=== PATIENT | female | born 1940 | race Caucasian/White ===

== ENCOUNTER → 2017-02-23 | Outpatient (CLI) | payer MEDICARE, OTHER ==
--- NOTE | 2017-02-24 07:32 | MM ---
Reason for exam: screening (asymptomatic). Last mammogram was performed 1 year and 1 month ago. History: Patient is postmenopausal. Benign excisional biopsy of the left breast, 1993. Taking estrogen for 11 years beginning at age 56. Physical Findings: A clinical breast exam by your physician is recommended on an annual basis and results should be correlated with mammographic findings. MG 3D Screening Mammo W/Cad Bilateral CC and MLO view(s) were taken. Prior study comparison: February 04, 2016, bilateral MG 3d screening mammo w/cad. October 09, 2014, bilateral MG screening mammo w CAD. There are scattered fibroglandular densities. No significant changes when compared with prior studies. ASSESSMENT: Benign, BI-RAD 2 RECOMMENDATION: Routine screening mammogram of both breasts in 1 year.
== END | disposition home or self-care (01) ==
LOC: RADMAMWWP 10:46
PROVIDERS: ATTEND Internal Medicine
DX: Z12.31 Encounter for screening mammogram for malignant neoplasm of breast (principal)
CPT/HCPCS: 77063; G0202

== ENCOUNTER → 2018-03-01 | Outpatient (CLI) | payer MEDICARE, OTHER ==
--- NOTE | 2018-03-02 10:31 | MM ---
Reason for exam: screening (asymptomatic). Last mammogram was performed 1 year ago. History: Patient is postmenopausal. Benign excisional biopsy of the left breast, 1993. Taking estrogen for 11 years beginning at age 56. Physical Findings: A clinical breast exam by your physician is recommended on an annual basis and results should be correlated with mammographic findings. MG 3D Screening Mammo W/Cad Bilateral CC and MLO view(s) were taken. Prior study comparison: February 23, 2017, bilateral MG 3d screening mammo w/cad. February 04, 2016, bilateral MG 3d screening mammo w/cad. The breast tissue is heterogeneously dense. This may lower the sensitivity of mammography. Benign appearing bilateral calcifications. No significant changes when compared with prior studies. ASSESSMENT: Benign, BI-RAD 2 RECOMMENDATION: Routine screening mammogram of both breasts in 1 year.
== END | disposition home or self-care (01) ==
LOC: RADMAMWWP 10:41
PROVIDERS: ATTEND Internal Medicine
DX: Z12.31 Encounter for screening mammogram for malignant neoplasm of breast (principal)
CPT/HCPCS: 77063; 77067

== ENCOUNTER → 2019-06-13 | Outpatient (CLI) | payer MEDICARE, OTHER ==
--- NOTE | 2019-06-14 10:06 | MM ---
Reason for exam: screening (asymptomatic). Last mammogram was performed 1 year and 3 months ago. History: Patient is postmenopausal. Benign excisional biopsy of the left breast, 1993. Taking estrogen for 11 years beginning at age 56. Physical Findings: A clinical breast exam by your physician is recommended on an annual basis and results should be correlated with mammographic findings. MG 3D Screening Mammo W/Cad Bilateral CC and MLO view(s) were taken. Prior study comparison: March 01, 2018, bilateral MG 3d screening mammo w/cad. February 23, 2017, bilateral MG 3d screening mammo w/cad. The breast tissue is heterogeneously dense. This may lower the sensitivity of mammography. Benign appearing bilateral calcifications. No suspicious abnormality. Post surgical change on the left. No significant changes when compared with prior studies. ASSESSMENT: Benign, BI-RAD 2 RECOMMENDATION: Routine screening mammogram of both breasts in 1 year.
== END | disposition home or self-care (01) ==
LOC: RADMAMWWP 09:49
PROVIDERS: ATTEND Internal Medicine
DX: Z12.31 Encounter for screening mammogram for malignant neoplasm of breast (principal)
CPT/HCPCS: 77063; 77067

== ENCOUNTER 2020-09-17 21:56 | Inpatient (IN) | payer MEDICARE, OTHER ==
[2020-09-17] MEDS ORDERED: ONDANSETRON 4 MG/2 ML VIAL IVP STA (22:19)
[2020-09-17] MEDS ORDERED: SODIUM CHLORIDE 0.9% 500 ML 500 ML IV STA (22:19)
[2020-09-17 23:10] LABS: Basophils # (A) 0.1 k/uL (0-0.2); Basophils % (A) 1 %; Eosinophils # (A) 0.1 k/uL (0-0.7); Eosinophils % (A) 1 %; Lymphocytes % (A) 7 %; MCH 31.1 pg (25.0-35.0); MCHC 32.1 g/dL (31.0-37.0); MCV 96.8 fL (80.0-100.0); Mean Platelet Volume 8.8; Monocytes # (A) 0.7 k/uL (0-1.0); Monocytes % (A) 5 %; Neutrophils % (A) 87 %; Platelet Count 189 k/uL (150-450); RBC 5.47 m/uL (3.80-5.40); RDW 13.6 % (11.5-15.5)
[2020-09-17 23:20] LABS: Albumin 3.9 g/dL (3.5-5.0); Calcium 9.8 mg/dL (8.4-10.2); Total Bilirubin 0.6 mg/dL (0.2-1.3); Total Protein 7.8 g/dL (6.3-8.2)
[2020-09-17 23:21] LABS: Appearance,Urine Cloudy (Clear); Bacteria,Urine Rare /hpf; Bilirubin,Urine Negative (Negative); Blood,Urine Negative (Negative); Color,Urine Yellow; Glucose,Urine (UA) Negative (Negative); Hyaline Casts,Urine 29 /lpf (0-2); Ketones,Urine Negative (Negative); Leukocyte Esterase,Urine Negative (Negative); Mucus,Urine Rare /hpf; Nitrite,Urine Negative (Negative); Protein,Urine 1+ (Negative); RBC,Urine 3 /hpf (0-5); Specific Gravity,Urine 1.021 (1.001-1.035); Squamous Epithelial Cell,Urine 4 /hpf (0-4); WBC,Urine 3 /hpf (0-5)
[2020-09-17 23:27] LABS: Potassium 6.7 mmol/L (3.5-5.1)
[2020-09-17] MEDS ORDERED: SODIUM CHLORIDE 0.9% 500 ML 500 ML IV ONE ×2 (23:33→23:35)
[2020-09-17] MEDS ORDERED: CALCIUM GLUCONATE 1 GM in SODIUM CHLORIDE 0.9% 100 ML IVPB ONE (23:34)
[2020-09-17] MEDS ORDERED: DEXTROSE 50% SYRINGE 50 ML IVP ONE (23:34)
[2020-09-17] MEDS ORDERED: SODIUM POLYSTYRENE SULFONATE 15 GM/60 ML BOTTLE PO ONE (23:34)
[2020-09-17] MEDS ORDERED: INSULIN REGULAR 100 UNIT/ML VIAL IV ONE (23:34)
[2020-09-17] MEDS ORDERED: SODIUM BICARB 8.4% 50 ML SYR (1 MEQ/ML) IV ONE (23:34)
--- NOTE | 2020-09-18 00:07 | CT ---
EXAMINATION TYPE: CT abdomen pelvis wo con DATE OF EXAM: 09/17/2020 COMPARISON: None HISTORY: VOMITING, GENERALIZED ABD PAIN CT DLP: 967.10 mGycm Automated exposure control for dose reduction was used. There is minimal reticular density and subsegmental atelectasis in the lingula left upper lobe. There is no pleural effusion. Heart is slightly enlarged. There is small hiatal hernia. Abdominal aorta is atheromatous. Liver shows no focal defect. There are clips from cholecystectomy. Spleen is intact. Stomach is intact. There is no pancreatic mass. There is exophytic 4.2 cm soft tissue mass posterior upper pole right kidney. Left kidney shows small size with cortical thinning. There is no hydronephrosis. There is no retroperitoneal adenopathy. The re is periumbilical hernia that contains fat. There is no inguinal hernia. Bladder distends smoothly. There is no free fluid in the pelvis. There is no evidence of a bowel obstruction. There is no mesenteric edema. There is no ascites. There is multiple surgical clips at the hepatic flexure of the colon. 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 There is probably some small bowel loops with mild wall thickening. I do not see evidence for a small bowel obstruction. There are spondylotic changes in the lumbar spine. There is spurring of the endplates. There is no co mpression fracture. There is multilevel vacuum disc. Bony pelvis is intact. Hip joints are intact. IMPRESSION: Exam limited bilateral oral contrast. There is possible few small bowel loops with wall thickening th at could relate to some enteritis. Periumbilical hernia contains fat. 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 Solid mass upper pole right kidney. Follow-up is recommended. This is somewhat exophytic and could be an atypical cyst. Ultrasound would be helpful to confirm or exclude a solid mass. Left renal atrophy. Atherosclerotic vascular disease.
[2020-09-18] MEDS ORDERED: HEPARIN SODIUM,PORCINE 5,000 UNIT/ML 1 ML VIAL IV PRN (00:55)
[2020-09-18] MEDS ORDERED: HEPARIN SODIUM,PORCINE 5,000 UNIT/ML 1 ML VIAL IV ONE (00:55)
[2020-09-18] MEDS ORDERED: NALOXONE 0.4 MG/ML 1 ML VIAL IV PRN (01:08)
--- NOTE | 2020-09-18 01:10 | ED ---
General Adult HPI - General Chief complaint: Nausea/Vomiting/Diarrhea Stated complaint: Leg pain Time Seen by Provider: 09/17/20 22:08 Source: EMS, RN notes reviewed, old records reviewed Mode of arrival: EMS Limitations: no limitations - History of Present Illness Initial comments: 80-year-old female patient to ED for evaluation of nausea and vomiting abdominal pain. Symptoms began today. Patient denies any other acute complaints. Systemic: Pt denies fatigue, fever/chills, rash. Pt denies weakness, night sweats, weight loss. Neuro: Pt denies headache, visual disturbances, syncope or pre-syncope. HEENT: Pt denies ocular discharge or irritation, otalgia, rhinorrhea, pharyngitis or notable lymphadenopathy. Cardiopulmonary: Pt denies chest pain, SOB, heart palpitations, dyspnea on exertion. : Pt denies dysuria, burning w/ urination, frequency/urgency. Denies new onset urinary or bowel incontinence. MSK: Pt denies myalgia, loss of strength or function in extremities. Neuro: Pt denies new onset weakness, paresthesias. - Related Data Home Medications Medication Instructions Recorded Confirmed Atenolol 50 mg PO DAILY 08/28/14 09/17/20 Estradiol 1 mg PO DAILY 08/28/14 09/17/20 Enalapril [Vasotec] 10 mg PO BID 09/17/20 09/17/20 Ezetimibe [Zetia] 10 mg PO DAILY 09/17/20 09/17/20 Levothyroxine Sodium [Synthroid] 175 mcg PO DAILY 09/17/20 09/17/20 Simvastatin [Zocor] 20 mg PO DAILY 09/17/20 09/17/20 hydroCHLOROthiazide 25 mg PO BID 09/17/20 09/17/20 Allergies Allergy/AdvReac Type Severity Reaction Status Date / Time latex Allergy Rash/Hives Verified 09/17/20 23:03 naproxen Allergy Rash/Hives Verified 09/17/20 23:03 Anesthetics - Amide Type - AdvReac Unknown Verified 09/17/20 23:03 Select A [Anesthetics - Amide Type] morphine AdvReac decreased Verified 09/17/20 23:03 heart rate naproxen sodium [From Aleve] AdvReac Rash/Hives Verified 09/17/20 23:03 Review of Systems ROS Statement: Those systems with pertinent positive or pertinent negative responses have been documented in the HPI. ROS Other: All systems not noted in ROS Statement are negative. Past Medical History Past Medical History: Hyperlipidemia, Hypertension, Thyroid Disorder History of Any Multi-Drug Resistant Organisms: None Reported Past Surgical History: Hysterectomy, Orthopedic Surgery Additional Past Surgical History / Comment(s): bilateral knee replacement, thyroidectomy Additional Past Anesthesia/Blood Transfusion Reaction / Comment(s): states during anesthesia had decrease heart rate Past Psychological History: No Psychological Hx Reported Smoking Status: Current some day smoker Past Alcohol Use History: None Reported Past Drug Use History: None Reported General Exam - General Exam Comments Initial Comments: Constitutional: NAD, AOX3, Pt has pleasant affect. HEENT: NC/AT, trachea midline, neck supple, no lymphadenopathy. External ears appear normal, without discharge. Mucous membranes moist. Eyes PERRLA, EOM intact. There is no scleral icterus. No pallor noted. Cardiopulmonary: RRR, no murmurs, rubs or gallops, no JVD noted. Lungs CTAB in anterior and posterior thibodeaux. No peripheral edema. Abdominal exam: Abdomen soft and non-distended. Mild generalized tenderness to abdomen no focal localized area. Bowel sounds active in LLQ. No hepatosplenomegaly. No ecchymosis Neuro: CN II-XII grossly intact. No nuchal rigidity. No raccon eyes, no sebastian sign, no hemotympanum. No cervical spinal tenderness. MSK: No posterior calf tenderness bilaterally, homans sign negative bilaterally. Posterior tibialis and radial pulse +2 bilaterally. Sensation intact in upper and lower extremities. Full active ROM in upper and lower extremities, 5/5 stregnth. Limitations: no limitations Course Vital Signs 09/17/20 09/18/20 22:06 00:08 Temperature 98.0 F Pulse Rate 72 70 Respiratory 18 18 Rate Blood Pressure 117/70 170/71 O2 Sat by Pulse 98 99 Oximetry Medical Decision Making - Medical Decision Making 80-year-old female patient to ED for evaluation nausea vomiting abdominal pain which began earlier today. Vital signs are stable, afebrile. Physical exam is fully mildly tender abdomen. Labs investigations reveal leukocytosis 15.0 with left shift. Hyperkalemia 6.7. BUN of 48, creatinine of 1.97. Baseline is around 1.5. New-onset atrial fibrillation is noted. Patient is rehydrated, hyperglycemia is treated with insulin, Kayexalate, patient is initiated on low- dose heparin due to new onset atrial fibrillation. Denies contraindication to anticoagulation. Will be admitted for further evaluation. Case discussed with Dr. Sow. - Lab Data Result diagrams: 09/17/20 22:43 09/17/20 22:43 Lab Results 09/17/20 09/17/20 09/17/20 Range/Units 22:43 22:43 22:43 WBC 15.0 H (3.8-10.6) k/uL RBC 5.47 H (3.80-5.40) m/uL Hgb 17.0 H (11.4-16.0) gm/dL Hct 53.0 H (34.0-46.0) % MCV 96.8 (80.0-100.0) fL MCH 31.1 (25.0-35.0) pg MCHC 32.1 (31.0-37.0) g/dL RDW 13.6 (11.5-15.5) % Plt Count 189 (150-450) k/uL MPV 8.8 Neutrophils % 87 % Lymphocytes % 7 % Monocytes % 5 % Eosinophils % 1 % Basophils % 1 % Neutrophils # 13.0 H (1.3-7.7) k/uL Lymphocytes # 1.0 (1.0-4.8) k/uL Monocytes # 0.7 (0-1.0) k/uL Eosinophils # 0.1 (0-0.7) k/uL Basophils # 0.1 (0-0.2) k/uL Sodium 136 L (137-145) mmol/L Potassium 6.7 H* (3.5-5.1) mmol/L Chloride 109 H (98-107) mmol/L Carbon Dioxide 20 L (22-30) mmol/L Anion Gap 7 mmol/L BUN 48 H (7-17) mg/dL Creatinine 1.97 H (0.52-1.04) mg/dL Est GFR (CKD-EPI)AfAm 27 (>60 ml/min/1.73 sqM) Est GFR (CKD-EPI)NonAf 24 (>60 ml/min/1.73 sqM) Glucose 135 H (74-99) mg/dL Plasma Lactic Acid Thai (0.7-2.0) mmol/L Calcium 9.8 (8.4-10.2) mg/dL Total Bilirubin 0.6 (0.2-1.3) mg/dL AST 24 (14-36) U/L ALT 17 (4-34) U/L Alkaline Phosphatase 60 (38-126) U/L Troponin I <0.012 (0.000-0.034) ng/mL Total Protein 7.8 (6.3-8.2) g/dL Albumin 3.9 (3.5-5.0) g/dL Amylase 89 (30-110) U/L Lipase 205 (23-300) U/L Urine Color Urine Appearance (Clear) Urine pH (5.0-8.0) Ur Specific [place] (1.001-1.035) Urine Protein (Negative) Urine Glucose (UA) (Negative) Urine Ketones (Negative) Urine Blood (Negative) Urine Nitrite (Negative) Urine Bilirubin (Negative) Urine Urobilinogen (<2.0) mg/dL Ur Leukocyte Esterase (Negative) Urine RBC (0-5) /hpf Urine WBC (0-5) /hpf Ur Squamous Epith Cells (0-4) /hpf Urine Bacteria (None) /hpf Hyaline Casts (0-2) /lpf Urine Mucus (None) /hpf 09/17/20 09/17/20 Range/Units 22:58 23:11 WBC (3.8-10.6) k/uL RBC (3.80-5.40) m/uL Hgb (11.4-16.0) gm/dL Hct (34.0-46.0) % MCV (80.0-100.0) fL MCH (25.0-35.0) pg MCHC (31.0-37.0) g/dL RDW (11.5-15.5) % Plt Count (150-450) k/uL MPV Neutrophils % % Lymphocytes % % Monocytes % % Eosinophils % % Basophils % % Neutrophils # (1.3-7.7) k/uL Lymphocytes # (1.0-4.8) k/uL Monocytes # (0-1.0) k/uL Eosinophils # (0-0.7) k/uL Basophils # (0-0.2) k/uL Sodium (137-145) mmol/L Potassium (3.5-5.1) mmol/L Chloride (98-107) mmol/L Carbon Dioxide (22-30) mmol/L Anion Gap mmol/L BUN (7-17) mg/dL Creatinine (0.52-1.04) mg/dL Est GFR (CKD-EPI)AfAm (>60 ml/min/1.73 sqM) Est GFR (CKD-EPI)NonAf (>60 ml/min/1.73 sqM) Glucose (74-99) mg/dL Plasma Lactic Acid Thai 1.5 (0.7-2.0) mmol/L Calcium (8.4-10.2) mg/dL Total Bilirubin (0.2-1.3) mg/dL AST (14-36) U/L ALT (4-34) U/L Alkaline Phosphatase (38-126) U/L Troponin I (0.000-0.034) ng/mL Total Protein (6.3-8.2) g/dL Albumin (3.5-5.0) g/dL Amylase (30-110) U/L Lipase (23-300) U/L Urine Color Yellow Urine Appearance Cloudy H (Clear) Urine pH 5.0 (5.0-8.0) Ur Specific [place] 1.021 (1.001-1.035) Urine Protein 1+ H (Negative) Urine Glucose (UA) Negative (Negative) Urine Ketones Negative (Negative) Urine Blood Negative (Negative) Urine Nitrite Negative (Negative) Urine Bilirubin Negative (Negative) Urine Urobilinogen 3.0 (<2.0) mg/dL Ur Leukocyte Esterase Negative (Negative) Urine RBC 3 (0-5) /hpf Urine WBC 3 (0-5) /hpf Ur Squamous Epith Cells 4 (0-4) /hpf Urine Bacteria Rare H (None) /hpf Hyaline Casts 29 H (0-2) /lpf Urine Mucus Rare H (None) /hpf - EKG Data -: EKG Interpreted by Me (and Dr. Sow ) EKG Comments: ventricular rate 73, QRS 82, QT/QTC 376/414. Atrial fibrillation. No concern for acute ischemia. Disposition Clinical Impression: Hyperkalemia, ABIOLA (acute kidney injury), Atrial fibrillation Disposition: ADMITTED IP TO THIS HOSP Condition: Stable Is patient prescribed a controlled substance at d/c from ED?: No Referrals: Gina Grant, NPC [Primary Care Provider] - 1-2 days
[2020-09-18] MEDS: HEPARIN SOD,PORK IN 0.45% NACL 25,000 UNIT in 0.45% NACL 1 250ML.BAG IV SCH (01:54)
[2020-09-18 02:24] LABS: Partial Thromboplastin Time 22.5 sec (22.0-30.0); Prothrombin Time 10.2 sec (9.0-12.0)
[2020-09-18 08:31] LABS: Basophils % (A) 0 %; Eosinophils # (A) 0.1 k/uL (0-0.7); Eosinophils % (A) 1 %; HGB 14.9 gm/dL (11.4-16.0); Lymphocytes # (A) 1.5 k/uL (1.0-4.8); Lymphocytes % (A) 14 %; MCH 30.3 pg (25.0-35.0); MCV 97.8 fL (80.0-100.0); Monocytes # (A) 0.6 k/uL (0-1.0); Monocytes % (A) 5 %; Neutrophils # (A) 8.3 k/uL (1.3-7.7); Neutrophils % (A) 78 %; Platelet Count 164 k/uL (150-450); RBC 4.91 m/uL (3.80-5.40); WBC 10.7 k/uL (3.8-10.6)
[2020-09-18 08:39] LABS: Albumin 3.4 g/dL (3.5-5.0); Potassium 5.5 mmol/L (3.5-5.1); Total Bilirubin 0.9 mg/dL (0.2-1.3)
--- NOTE | 2020-09-18 09:24 | P.CRDCN ---
History of Present Illness Consult date: 09/18/20 Chief complaint: Feeling weak History of present illness: This is a very pleasant 80-year-old female patient with a past medical history significant for hypertension and dyslipidemia who we consulted to see for further evaluation of cardiac arrhythmia and atrial fibrillation of new diagnosis. The patient was in her usual state of health until yesterday when she started not feeling well. She started experiencing epigastric discomfort followed by multiple episodes of diarrhea followed by multiple episodes of nausea and vomiting. She tried to call her friends as well as her relative but she decided then to come to the hospital for further evaluation. She was found to be dehydrated and she was in renal failure with hyperkalemia. We consulted to see the patient for further elevation of atrial fibrillation which was of new the diagnosis. Currently the patient is in atrial fibrillation was controlled heart rates. She stated that she never told in the past that she has atrial fibrillation nor coronary artery disease or congestive heart failure or any kind of cardiac arrhythmia. She does have hypertension and dyslipidemia. She denies any symptoms of chest pain or chest discomfort or shortness of breath or dizziness or lightheadedness or any feeling of heart racing or fluttering. Currently she is on heparin IV. She was on atenolol at home which we will resume at this point. Also will obtain an echocardiogram was Doppler. EKG showed atrial fibrillation with diffuse nonspecific ST and T wave abnormalities. Past Medical History Past Medical History: Hyperlipidemia, Hypertension, Thyroid Disorder History of Any Multi-Drug Resistant Organisms: None Reported Past Surgical History: Hysterectomy, Orthopedic Surgery Additional Past Surgical History / Comment(s): bilateral knee replacement, thyroidectomy Past Anesthesia/Blood Transfusion Reactions: Previous Problems w/ Anesthesia Additional Past Anesthesia/Blood Transfusion Reaction / Comment(s): states during anesthesia had low blood pressure post procedure Past Psychological History: No Psychological Hx Reported Smoking Status: Current every day smoker Past Alcohol Use History: None Reported Additional Past Alcohol Use History / Comment(s): reports half a pack smoker/daily. started in 1959 Past Drug Use History: None Reported Medications and Allergies Home Medications Medication Instructions Recorded Confirmed Type Atenolol 50 mg PO DAILY 08/28/14 09/17/20 History Estradiol 0.5 mg PO DAILY 08/28/14 09/18/20 History Enalapril [Vasotec] 10 mg PO BID 09/17/20 09/17/20 History Ezetimibe [Zetia] 10 mg PO DAILY 09/17/20 09/17/20 History Levothyroxine Sodium [Synthroid] 175 mcg PO DAILY 09/17/20 09/17/20 History Simvastatin [Zocor] 20 mg PO DAILY 09/17/20 09/17/20 History hydroCHLOROthiazide 25 mg PO BID 09/17/20 09/17/20 History Allergies Allergy/AdvReac Type Severity Reaction Status Date / Time latex Allergy Rash/Hives Verified 09/17/20 23:03 naproxen Allergy Rash/Hives Verified 09/17/20 23:03 Anesthetics - Amide Type - AdvReac Unknown Verified 09/17/20 23:03 Select A [Anesthetics - Amide Type] morphine AdvReac decreased Verified 09/17/20 23:03 heart rate naproxen sodium [From Aleve] AdvReac Rash/Hives Verified 09/17/20 23:03 Physical Exam Vitals: Vital Signs Temp Pulse Pulse Resp BP BP Pulse Ox 09/18/20 03:39 97.8 F 94 18 146/74 97 09/18/20 03:30 94 18 09/18/20 03:14 97.8 F 94 18 146/74 97 09/18/20 00:08 70 18 170/71 99 09/17/20 22:06 98.0 F 72 18 117/70 98 Intake and Output 09/17/20 09/18/20 09/18/20 22:59 06:59 14:59 Other: Voiding Method Toilet # Voids 1 Weight 83.915 kg 86.3 kg - Constitutional General appearance: no acute distress - Respiratory Respiratory: bilateral: CTA - Cardiovascular Rhythm: irregularly irregular Heart sounds: normal: S1, S2 Results 09/18/20 08:12 09/18/20 08:12 Cardiac Enzymes 09/17/20 09/17/20 09/18/20 Range/Units 22:43 22:43 08:12 AST 24 23 (14-36) U/L Troponin I <0.012 (0.000-0.034) ng/mL Coagulation 09/18/20 09/18/20 Range/Units 01:47 08:12 PT 10.2 (9.0-12.0) sec APTT 22.5 77.4 H (22.0-30.0) sec CBC 09/17/20 09/18/20 Range/Units 22:43 08:12 WBC 15.0 H 10.7 H (3.8-10.6) k/uL RBC 5.47 H 4.91 (3.80-5.40) m/uL Hgb 17.0 H 14.9 (11.4-16.0) gm/dL Hct 53.0 H 48.0 H (34.0-46.0) % Plt Count 189 164 (150-450) k/uL Comprehensive Metabolic Panel 09/17/20 09/18/20 09/18/20 Range/Units 22:43 01:47 08:12 Sodium 136 L 139 (137-145) mmol/L Potassium 6.7 H* 5.6 H 5.5 H (3.5-5.1) mmol/L Chloride 109 H 111 H (98-107) mmol/L Carbon Dioxide 20 L 24 (22-30) mmol/L BUN 48 H 45 H (7-17) mg/dL Creatinine 1.97 H 1.78 H (0.52-1.04) mg/dL Glucose 135 H 96 (74-99) mg/dL Calcium 9.8 9.0 (8.4-10.2) mg/dL AST 24 23 (14-36) U/L ALT 17 15 (4-34) U/L Alkaline Phosphatase 60 50 (38-126) U/L Total Protein 7.8 7.0 (6.3-8.2) g/dL Albumin 3.9 3.4 L (3.5-5.0) g/dL Current Medications Generic Name Dose Route Start Last Admin Trade Name Freq PRN Reason Stop Dose Admin Atenolol 50 mg 09/18/20 09:15 Atenolol 50 Mg Tab PO DAILY [facility] Atorvastatin Calcium 10 mg 09/18/20 09:15 Atorvastatin 10 Mg Tab PO DAILY [facility] Ezetimibe 10 mg 09/18/20 09:15 Ezetimibe 10 Mg Tab PO DAILY [facility] Heparin Sodium (Porcine) 0 unit 09/18/20 00:55 Heparin Sodium,Porcine 5,000 Unit/Ml 1 Ml Vial IV PER PROTOCOL PRN Low PTT Protocol Heparin Sodium/Sodium Chloride 250 mls @ 9.231 mls/hr 09/18/20 01:00 09/18/20 01:54 25,000 unit/ Sodium Chloride IV 11 units/kg/hr .Q24H KENDY 9.231 mls/hr Administration Protocol 11 UNITS/KG/HR Sodium Chloride 1,000 mls @ 75 mls/hr 09/18/20 09:30 Saline 0.9% IV .[id number] [facility] Levothyroxine Sodium 176 mcg 09/18/20 09:15 Levothyroxine 88 Mcg Tab PO DAILY@0630 [facility] Naloxone HCl 0.2 mg 09/18/20 01:08 Naloxone 0.4 Mg/Ml 1 Ml Vial IV Q2M PRN Opioid Reversal Intake and Output 09/17/20 09/18/20 09/18/20 22:59 06:59 14:59 Other: Voiding Method Toilet # Voids 1 Weight 83.915 kg 86.3 kg 09/18/20 08:12 09/18/20 08:12 Assessment and Plan Assessment: Assessment #1 nausea and vomiting and diarrhea #2 dehydration secondary to the above #3 acute renal failure secondary to above #4 electrolytes imbalance secondary to above #5 new diagnosis atrial fibrillation #6 hypertension and dyslipidemia Plan #1 continue heparin #2 restart the patient on atenolol #3 obtain an echocardiogram was Doppler #4 consider oral anticoagulation down the line #5 monitor the kidney function and electrolytes #6 follow up with the patient
[2020-09-18] MEDS: ATORVASTATIN 10 MG TAB PO SCH (09:33)
[2020-09-18] MEDS: atenoloL 50 MG TAB PO SCH (09:33)
[2020-09-18] MEDS: LEVOTHYROXINE 88 MCG TAB PO SCH (09:34)
[2020-09-18] MEDS: SODIUM CHLORIDE 0.9% 1,000 ML IV SCH ×2 (09:34→21:29)
[2020-09-18] MEDS: EZETIMIBE 10 MG TAB PO SCH (09:34)
--- NOTE | 2020-09-18 12:00 | ECHOF ---
Referral Reason:lv function MEASUREMENTS -------- HEIGHT: 154.9 cm WEIGHT: 86.2 kg BP: 146/74 RVIDd: 3.3 cm (< 3.3) IVSd: 1.6 cm (0.6 - 1.1) LVIDd: 3.7 cm (3.9 - 5.3) LVPWd: 1.5 cm (0.6 - 1.1) IVSs: 2.0 cm LVIDs: 2.6 cm LVPWs: 1.9 cm LA Diam: 4.2 cm (2.7 - 3.8) LAESV Index (A-L): 39.46 ml/m Ao Diam: 3.4 cm (2.0 - 3.7) MV EXCURSION: 15.965 mm (> 18.000) MV EF SLOPE: 85 mm/s (70 - 150) EPSS: 0.3 cm MV E Andres: 1.39 m/s MV DecT: 176 ms MV A Andres: 0.33 m/s MV E/A Ratio: 4.25 RAP: 5.00 mmHg RVSP: 44.49 mmHg FINDINGS -------- Atrial fibrillation. This was a technically adequate study. The left ventricular size is normal. There is moderate concentric left ventricular hypertrophy. O verall left ventricular systolic function is normal with, an EF between 55 - 60 %. The right ventricle is mildly enlarged. LA is severely dilated >40 ml/m2 The right atrium is normal in size. Interatrial and interventricular septum intact. There is mild aortic valve sclerosis. The mitral valve leaflets are mildly thickened. [id number] mitral regurgitation is present. Mild tricuspid regurgitation present. There is mild pulmonary hypertension. The right ventricular systolic pressure, as measured by Doppler, is 44.49mmHg. The pulmonic valve was not well visualized. The aortic root size is normal. Normal inferior vena cava with normal inspiratory collapse consistent with estimated right atrial pre ssure of 5 mmHg. The inferior vena cava is mildly dilated. There is no pericardial effusion. CONCLUSIONS -------- 1. The left ventricular size is normal. 2. There is moderate concentric left ventricular hypertrophy. 3. Overall left ventricular systolic function is normal with, an EF between 55 - 60 %. 4. The right ventricle is mildly enlarged. 5. LA is severely dilated >40 ml/m2 6. There is mild aortic valve sclerosis. 7. The mitral valve leaflets are mildly thickened. 8. [id number] mitral regurgitation is present. 9. Mild tricuspid regurgitation present. 10. There is mild pulmonary hypertension. 11. The right ventricular systolic pressure, as measured by Doppler, is 44.49mmHg. 12. The inferior vena cava is mildly dilated. 13. There is no pericardial effusion. SURVEYOR HYDROGRAPHIC: Citlaly Torres RDCS
--- NOTE | 2020-09-18 19:07 | CONS ---
CONSULTATION REASON FOR CONSULT: Renal failure. HISTORY OF PRESENT ILLNESS: The patient is a 80-year-old female who was admitted to the hospital with a history of severe diarrhea which started about 3-4 hours prior to admission. The patient had some abdominal pain as well. She denied any fevers or chills. No significant cough. No urinary symptoms. The patient denies any previous history of kidney diseases. Her serum creatinine was 1.97 on admission with a potassium of 6.7. It is down to 1.78 and potassium is down to 5.5. Patient did state that she felt her legs were significantly weak after she had a bowel movement and she felt lightheaded and very sweaty and could not walk. Patient is maintained on JUNAID inhibitors at home and again denies use of any nonsteroidal anti-inflammatory agents. Blood pressure was not significantly low, with systolic around 130 to 140 mmHg, although initial blood pressure was 117 for systolic yesterday. Chest x-ray was not done on admission. Abdominal CT shows a solid mass, upper pole of right kidney, and some left renal atrophy was noted. No lymphadenopathy was seen. No obstruction was noted. PAST MEDICAL HISTORY: Hyperlipidemia, hypertension, hypothyroidism, osteoarthritis. PAST SURGICAL HISTORY: Bilateral knee arthroplasty, thyroidectomy, hysterectomy. SOCIAL HISTORY: Positive for smoking. No history of drug abuse or alcohol abuse. MEDICATIONS: Medications at home prior to admission included hydrochlorothiazide, Vasotec, Zetia, Synthroid, atenolol, estradiol, Zocor. ALLERGIES: ALLERGIES include NAPROSYN, which causes rash and hives. LATEX, ANESTHETICS, MORPHINE, ALEVE, which causes rash and hives. REVIEW OF SYSTEMS: As per HPI. Other systems negative. PHYSICAL EXAMINATION: Patient is comfortable, awake, alert, oriented x3, not in any acute distress. Blood pressure is 146/74, heart rate 94 per minute. She is afebrile. EXAMINATION OF THE HEART: S1 and S2. EXAMINATION OF LUNGS: Bilateral breath sounds are heard. ABDOMEN: Soft, non-tender. Examination of lower extremities shows no evidence of edema. GLASS CALIBRATOR exam is grossly intact. LABS: Sodium 139, potassium 5.5, chloride 111. CO2 is 24, BUN 45, creatinine 1.78. UA shows 1+ protein. No blood or cells are seen. Coronavirus was negative. Hemoglobin 14.9, white cell count 10.7, platelet count of 164,000. INR 1.0. ASSESSMENT: 1. Acute kidney injury, most likely prerenal in the setting of some degree of hypoperfusion and use of JUNAID inhibitors along with diuretics prior to admission. Continue with IV hydration for now and hold off on the JUNAID inhibitors and diuretics. 2. Hyperkalemia associated with acute kidney injury. No evidence of obstruction. Hold off on the JUNAID inhibitors for now. Serum potassium has improved. Expect further improvement with improving renal function. Avoid further use of Kayexalate in this patient who is elderly and with abdominal pain and diarrhea. 3. Dyslipidemia, maintained on Zetia. 4. Hypertension. May continue atenolol for now. 5. Chronic kidney disease. Previous creatinine of 1.3 to 1.5 mg/dL in April and May of 2020; etiology nephrosclerosis. No evidence of proteinuria. 6. Right renal mass of about 4.2 cm. Will check an ultrasound. Patient will need further workup down the road. PLAN: Continue with IV fluids. Hold off on JUNAID inhibitors. Repeat labs in a.m. Check chest x-ray and obtain ultrasound of the kidneys for further evaluation of the renal cyst/mass. At this time patient cannot get IV contrast; we can perhaps schedule that later on down the road as outpatient if needed. Thank you for this consultation. Will continue to follow the patient with you during her hospitalization. MMODL / IJN: [id number] /
[2020-09-18 20:20] LABS: Glucose,Whole Blood 99 mg/dL (75-99)
--- NOTE | 2020-09-19 01:05 | P.HPIM ---
History of Present Illness H&P Date: 09/18/20 Chief Complaint: Nausea vomiting Patient is a 80-year-old female with a known history of hypertension, hyperlipidemia, hypothyroidism and currently everyday smoker presents to ER with the complaints of nausea vomiting and abdominal pain started in the morning yesterday. Patient sat in the chair and unable to get out due to extreme weakness. Called EMS and was brought to the hospital. Otherwise patient denied any complaints of chest pain or shortness of breath. No cough or sputum production. No fever no chills. Laboratory data showed WBC 15.0, hemoglobin 17.0 Sodium 136 and potassium 6.7 and chloride 109, BUN 48 and creatinine 01.97 Lactic acid 1.5 Urinalysis showed cloudy with rare bacteria Coronavirus PCR is negative Troponin x2 - EKG showed atrial fibrillation Review of Systems Constitutional: Patient denies any fever or chills . generalized weakness and fatigue. Abdomen: Patient does have intractable nausea vomiting and abdominal pain. Cardiovascular: Patient denies any chest pain or short of breath no palpitations. Respiratory: patient denied any cough or sputum production. No shortness of breath Neurologic: Patient denied any numbness or tingling headache. Musculoskeletal: Patient denies any complaints of joint swelling or deformity. Skin: Negative Psychiatric: Negative Endocrine: No heat or cold intolerance. No recent weight gain. Genitourinary: No dysuria or hematuria. All other 14 point ROS negative except the above Past Medical History Past Medical History: Hyperlipidemia, Hypertension, Thyroid Disorder History of Any Multi-Drug Resistant Organisms: None Reported Past Surgical History: Hysterectomy, Orthopedic Surgery Additional Past Surgical History / Comment(s): bilateral knee replacement, thyroidectomy Past Anesthesia/Blood Transfusion Reactions: Previous Problems w/ Anesthesia Additional Past Anesthesia/Blood Transfusion Reaction / Comment(s): states during anesthesia had low blood pressure post procedure Past Psychological History: No Psychological Hx Reported Smoking Status: Current every day smoker Past Alcohol Use History: None Reported Additional Past Alcohol Use History / Comment(s): reports half a pack smoker/daily. started in 1959 Past Drug Use History: None Reported Medications and Allergies Home Medications Medication Instructions Recorded Confirmed Type Atenolol 50 mg PO DAILY 08/28/14 09/17/20 History Estradiol 0.5 mg PO DAILY 08/28/14 09/18/20 History Enalapril [Vasotec] 10 mg PO BID 09/17/20 09/17/20 History Ezetimibe [Zetia] 10 mg PO DAILY 09/17/20 09/17/20 History Levothyroxine Sodium [Synthroid] 175 mcg PO DAILY 09/17/20 09/17/20 History Simvastatin [Zocor] 20 mg PO DAILY 09/17/20 09/17/20 History hydroCHLOROthiazide 25 mg PO BID 09/17/20 09/17/20 History Allergies Allergy/AdvReac Type Severity Reaction Status Date / Time latex Allergy Rash/Hives Verified 09/17/20 23:03 naproxen Allergy Rash/Hives Verified 09/17/20 23:03 Anesthetics - Amide Type - AdvReac Unknown Verified 09/17/20 23:03 Select A [Anesthetics - Amide Type] morphine AdvReac decreased Verified 09/17/20 23:03 heart rate naproxen sodium [From Aleve] AdvReac Rash/Hives Verified 09/17/20 23:03 Physical Exam Vitals: Vital Signs Temp Pulse Pulse Resp BP BP Pulse Ox 09/18/20 08:00 98.3 F 76 163/77 96 09/18/20 03:39 97.8 F 94 18 146/74 97 09/18/20 03:30 94 18 09/18/20 03:14 97.8 F 94 18 146/74 97 09/18/20 00:08 70 18 170/71 99 09/17/20 22:06 98.0 F 72 18 117/70 98 Intake and Output 09/17/20 09/18/20 09/18/20 22:59 06:59 14:59 Other: Voiding Method Toilet # Voids 1 Weight 83.915 kg 86.3 kg Results CBC & Chem 7: 09/18/20 08:12 09/18/20 08:12 Labs: Abnormal Lab Results - Last 24 Hours (Table) 09/17/20 09/17/20 09/17/20 Range/Units 22:43 22:43 22:58 WBC 15.0 H (3.8-10.6) k/uL RBC 5.47 H (3.80-5.40) m/uL Hgb 17.0 H (11.4-16.0) gm/dL Hct 53.0 H (34.0-46.0) % Neutrophils # 13.0 H (1.3-7.7) k/uL APTT (22.0-30.0) sec Sodium 136 L (137-145) mmol/L Potassium 6.7 H* (3.5-5.1) mmol/L Chloride 109 H (98-107) mmol/L Carbon Dioxide 20 L (22-30) mmol/L BUN 48 H (7-17) mg/dL Creatinine 1.97 H (0.52-1.04) mg/dL Glucose 135 H (74-99) mg/dL Albumin (3.5-5.0) g/dL Urine Appearance Cloudy H (Clear) Urine Protein 1+ H (Negative) Urine Bacteria Rare H (None) /hpf Hyaline Casts 29 H (0-2) /lpf Urine Mucus Rare H (None) /hpf 09/18/20 09/18/20 09/18/20 Range/Units 01:47 08:12 08:12 WBC (3.8-10.6) k/uL RBC (3.80-5.40) m/uL Hgb (11.4-16.0) gm/dL Hct (34.0-46.0) % Neutrophils # (1.3-7.7) k/uL APTT 77.4 H (22.0-30.0) sec Sodium (137-145) mmol/L Potassium 5.6 H 5.5 H (3.5-5.1) mmol/L Chloride 111 H (98-107) mmol/L Carbon Dioxide (22-30) mmol/L BUN 45 H (7-17) mg/dL Creatinine 1.78 H (0.52-1.04) mg/dL Glucose (74-99) mg/dL Albumin 3.4 L (3.5-5.0) g/dL Urine Appearance (Clear) Urine Protein (Negative) Urine Bacteria (None) /hpf Hyaline Casts (0-2) /lpf Urine Mucus (None) /hpf 09/18/20 Range/Units 08:12 WBC 10.7 H (3.8-10.6) k/uL RBC (3.80-5.40) m/uL Hgb (11.4-16.0) gm/dL Hct 48.0 H (34.0-46.0) % Neutrophils # 8.3 H (1.3-7.7) k/uL APTT (22.0-30.0) sec Sodium (137-145) mmol/L Potassium (3.5-5.1) mmol/L Chloride (98-107) mmol/L Carbon Dioxide (22-30) mmol/L BUN (7-17) mg/dL Creatinine (0.52-1.04) mg/dL Glucose (74-99) mg/dL Albumin (3.5-5.0) g/dL Urine Appearance (Clear) Urine Protein (Negative) Urine Bacteria (None) /hpf Hyaline Casts (0-2) /lpf Urine Mucus (None) /hpf Thrombosis Risk Factor Assmnt - DVT/VTE Prophylaxis DVT/VTE Prophylaxis: Pharmacologic Prophylaxis ordered - Choose All That Apply Any of the Below Risk Factors Present?: Yes Each Factor Represents 1 point: Obesity (BMI >25) Other Risk Factors: Yes Each Risk Factor Represents 3 Points: Age 75 years or older Other congenital or acquired thrombophilia - If yes, enter type in comment: No Thrombosis Risk Factor Assessment Total Risk Factor Score: 4 Thrombosis Risk Factor Assessment Level: Moderate Risk Assessment and Plan Assessment: Hyperkalemia due to acute kidney injury. Acute on chronic kidney disease stage III creatinine level 1.97 on admission Hypovolemic hyponatremia Intractable nausea vomiting and abdominal pain improved now Atrial fibrillation with controlled ventricular rate new onset Hypertension Hyperlipidemia Ongoing nicotine addiction Hypothyroidism DVT prophylaxis. Patient is on heparin drip Plan: Patient will be continued symptomatic management for nausea and vomiting which is improved now. Patient is also started heparin drip and cardiology was consulted. 2D echocardiogram was ordered. Potassium level is trending down and monitor renal function. TSH level was ordered. Continue with IV hydration and follow-up closely. Time with Patient: Greater than 30
[2020-09-19] MEDS: HEPARIN SOD,PORK IN 0.45% NACL 25,000 UNIT in 0.45% NACL 1 250ML.BAG IV SCH (02:25)
[2020-09-19] MEDS: amLODIPine 5 MG TAB PO SCH ×2 (04:06→08:19)
[2020-09-19] MEDS: LEVOTHYROXINE 88 MCG TAB PO SCH (05:40)
[2020-09-19] MEDS: hydrALAZINE HCL 20 MG/ML 1 ML VIAL IVP PRN ×3 (05:42→20:08)
[2020-09-19] MEDS ORDERED: hydrALAZINE HCL 20 MG/ML 1 ML VIAL IVP STA (06:54)
[2020-09-19 07:44] LABS: Basophils % (A) 0 %; Eosinophils # (A) 0.2 k/uL (0-0.7); Eosinophils % (A) 3 %; HCT 47.8 % (34.0-46.0); HGB 14.8 gm/dL (11.4-16.0); Lymphocytes # (A) 1.7 k/uL (1.0-4.8); Lymphocytes % (A) 24 %; MCH 30.3 pg (25.0-35.0); MCV 97.7 fL (80.0-100.0); Mean Platelet Volume 8.2; Monocytes # (A) 0.4 k/uL (0-1.0); Monocytes % (A) 5 %; Neutrophils # (A) 4.7 k/uL (1.3-7.7); Neutrophils % (A) 66 %; Platelet Count 151 k/uL (150-450); WBC 7.1 k/uL (3.8-10.6)
[2020-09-19 08:13] LABS: Glucose,Whole Blood 105 mg/dL (75-99)
[2020-09-19] MEDS: EZETIMIBE 10 MG TAB PO SCH (08:19)
[2020-09-19] MEDS: atenoloL 50 MG TAB PO SCH (08:19)
[2020-09-19] MEDS: ATORVASTATIN 10 MG TAB PO SCH (08:19)
[2020-09-19 08:37] LABS: African American GFR (CKD) 34 (>60 ml/min/1.73 sqM); Anion Gap 6 mmol/L; Blood Urea Nitrogen 40 mg/dL (7-17); Calcium 9.1 mg/dL (8.4-10.2); Carbon Dioxide 21 mmol/L (22-30); Chloride 113 mmol/L (98-107); Glucose 87 mg/dL (74-99); Non-African American GFR(CKD) 30 (>60 ml/min/1.73 sqM); Potassium 5.1 mmol/L (3.5-5.1); Sodium 140 mmol/L (137-145)
--- NOTE | 2020-09-19 09:38 | P.PN ---
Subjective Progress Note Date: 09/19/20 Principal diagnosis: Atrial fibrillation probably paroxysmal This is a very pleasant 80-year-old female patient who initially presented to the hospital with symptoms of nausea and vomiting and diarrhea and we consulted to see her because she was found to be in atrial fibrillation. The patient was found to be also hyperkalemic and in renal failure. The patient was seen today. She is feeling overall better. She denies any symptoms of chest pain or chest discomfort or shortness of breath. She continues to be in atrial fibrillation was controlled heart rate. She continues to be on heparin IV. I am going to check for coverage for oral anticoagulation with Eliquis. The echo revealed normal left ventricle systolic function was mild to moderate MR. Objective - Vital Signs Vital signs: Vital Signs Temp 98.2 F 09/19/20 03:42 Pulse 82 09/19/20 03:42 Resp 18 09/19/20 03:42 BP 182/84 09/19/20 07:01 Pulse Ox 93 L 09/19/20 03:42 Intake & Output 09/18/20 09/19/20 09/19/20 18:59 06:59 18:59 Intake Total 605 826.314 Balance 605 826.314 Weight 86.7 kg Intake: Intake, IV Titration 826.314 Amount Heparin Sod,Pork in 0.45% 226.314 NaCl 25,000 unit In 0.45 % NaCl 1 250ml.bag @ 11 UNITS/KG/HR 9.231 mls/hr IV .Q24H KENDY Rx#: [id number] Sodium Chloride 0.9% 1, 600 000 ml @ 75 mls/hr IV . [id number] KENDY Rx#:[id number] Oral 605 Other: Voiding Method Toilet # Voids 1 1 1 - Constitutional General appearance: Present: no acute distress - Respiratory Respiratory: bilateral: CTA - Cardiovascular Rhythm: irregularly irregular Heart sounds: normal: S1, S2 Abnormal Heart Sounds: Present: systolic murmur - Labs CBC & Chem 7: 09/19/20 07:07 09/19/20 07:07 Labs: Abnormal Lab Results - Last 24 Hours (Table) 09/18/20 09/19/20 09/19/20 Range/Units 20:58 07:07 07:07 Hct 47.8 H (34.0-46.0) % APTT 53.7 H 54.9 H (22.0-30.0) sec Chloride (98-107) mmol/L Carbon Dioxide (22-30) mmol/L BUN (7-17) mg/dL Creatinine (0.52-1.04) mg/dL POC Glucose (mg/dL) (75-99) mg/dL TSH (0.465-4.680) mIU/L 09/19/20 09/19/20 Range/Units 07:07 08:12 Hct (34.0-46.0) % APTT (22.0-30.0) sec Chloride 113 H (98-107) mmol/L Carbon Dioxide 21 L (22-30) mmol/L BUN 40 H (7-17) mg/dL Creatinine 1.63 H (0.52-1.04) mg/dL POC Glucose (mg/dL) 105 H (75-99) mg/dL TSH <0.015 L (0.465-4.680) mIU/L Assessment and Plan Assessment: Assessment #1 nausea and vomiting and diarrhea #2 dehydration secondary to the above #3 acute renal failure secondary to above #4 electrolytes imbalance secondary to above #5 new diagnosis atrial fibrillation #6 hypertension and dyslipidemia Plan #1 continue the current medical regimen #2 consider oral anticoagulation and check for coverage #3 the echo was reviewed and showed normal LV function #4 the potassium has been trending down #5 the creatinine has been trending down #6 follow up with the patient
[2020-09-19 10:46] LABS: T4, Free (Free Thyroxine) 3.01 ng/dL (0.78-2.19)
[2020-09-19] MEDS: SODIUM CHLORIDE 0.9% 1,000 ML IV SCH (11:53)
--- NOTE | 2020-09-19 13:36 | PN ---
PROGRESS NOTE Patient is seen for followup for acute kidney injury. She was admitted to the hospital with acute kidney injury and hyperkalemia. The patient is off of JUNAID inhibitors and diuretics. She is maintained on IV fluids. Renal function has improved slightly with serum creatinine going down to 1.6 from 1.97 on initial admission. Previous creatinine was 1.5 in May of 2020. Overall, patient states she is feeling well. She denies any significant chest pains or shortness of breath. No muscle weakness noted. PHYSICAL EXAMINATION: Blood pressure was 163/79, heart rate 116 per minute. She is afebrile. EXAMINATION OF THE HEART: S1, S2. EXAMINATION OF THE LUNGS: Bilateral breath sounds are heard. Abdomen is soft, nontender. Examination of lower extremities shows no significant edema. RADIATOR CORE TESTER exam is grossly intact. LABS: Labs show sodium 140, potassium 5.1, chloride 113, CO2 is 21, BUN 40, serum creatinine 1.6, hemoglobin of 14.8 g/dL. CT scan shows right renal mass. ASSESSMENT: 1. Acute kidney injury associated with some degree of hypoperfusion and hypovolemia currently improved. I will discontinue the IV fluids. Patient's blood pressure is elevated. Renal function has improved. Hopefully, her blood pressure will improve post discontinuation of saline and then we can resume the JUNAID inhibitors in a few days. 2. Chronic kidney disease stage 3 previous creatinine 1.5, etiology nephrosclerosis, patient has trace proteinuria. 3. Hyperkalemia associated with acute kidney injury, now resolved. 4. Right renal mass about 4.2 cm. Will need ultrasound and possibly CT with IV contrast down the road. 5. Hypertension, discontinue normal saline. 6. New onset atrial fibrillation, started on Eliquis. Rate is currently controlled. PLAN: Discontinue IV fluids. Can resume JUNAID inhibitors in 1 to 2 days time. The patient will need follow up as outpatient for CKD. She is advised to continue to avoid use of NSAIDs post discharge. Okay for discharge if cleared from Cardiology. MMODL / IJN: [id number] /
[2020-09-19] MEDS ORDERED: methIMAzole 5 MG TAB PO SCH (15:15)
[2020-09-20 05:29] VITALS: RESP 18
[2020-09-20] MEDS: hydrALAZINE HCL 20 MG/ML 1 ML VIAL IVP PRN (05:29)
[2020-09-20] MEDS: HEPARIN SOD,PORK IN 0.45% NACL 25,000 UNIT in 0.45% NACL 1 250ML.BAG IV SCH (05:33)
[2020-09-20] MEDS ORDERED: LEVOTHYROXINE 75 MCG TAB PO SCH (06:30)
[2020-09-20 08:05] LABS: Basophils % (A) 0 %; Eosinophils # (A) 0.1 k/uL (0-0.7); Eosinophils % (A) 1 %; HCT 45.1 % (34.0-46.0); HGB 14.4 gm/dL (11.4-16.0); Lymphocytes # (A) 1.2 k/uL (1.0-4.8); Lymphocytes % (A) 16 %; MCH 30.9 pg (25.0-35.0); MCHC 31.9 g/dL (31.0-37.0); MCV 96.9 fL (80.0-100.0); Monocytes # (A) 0.4 k/uL (0-1.0); Monocytes % (A) 6 %; Neutrophils # (A) 5.8 k/uL (1.3-7.7); Neutrophils % (A) 75 %; Platelet Count 139 k/uL (150-450); RBC 4.66 m/uL (3.80-5.40); RDW 13.8 % (11.5-15.5); WBC 7.7 k/uL (3.8-10.6)
[2020-09-20 08:35] LABS: Calcium 9.2 mg/dL (8.4-10.2)
[2020-09-20] MEDS ORDERED: amLODIPine 10 MG TAB PO SCH (09:00)
[2020-09-20] MEDS: atenoloL 50 MG TAB PO SCH (09:23)
[2020-09-20] MEDS: EZETIMIBE 10 MG TAB PO SCH (09:23)
[2020-09-20] MEDS: ATORVASTATIN 10 MG TAB PO SCH (09:23)
--- NOTE | 2020-09-20 09:45 | P.PN ---
Subjective Progress Note Date: 09/20/20 Principal diagnosis: Atrial fibrillation probably paroxysmal This is a very pleasant 80-year-old female patient who initially presented to the hospital with symptoms of nausea and vomiting and diarrhea and we consulted to see her because she was found to be in atrial fibrillation. The patient was found to be also hyperkalemic and in renal failure. The patient was seen this morning. She is doing better clinically. The creatinine is slightly better as well as the potassium. I am going to add hydralazine to control the blood pressure and possibly the patient can be disch arged home on oral anticoagulation as well. Objective - Vital Signs Vital signs: Vital Signs Temp 98 F 09/20/20 04:59 Pulse 82 09/20/20 04:59 Resp 18 09/20/20 04:59 BP 175/77 09/20/20 04:59 Pulse Ox 95 09/20/20 04:59 Intake & Output 09/19/20 09/20/20 09/20/20 18:59 06:59 18:59 Intake Total 480 250 220 Balance 480 250 220 Weight 86 kg Intake: Intake, IV Titration 250 Amount Heparin Sod,Pork in 0.45% 250 NaCl 25,000 unit In 0.45 % NaCl 1 250ml.bag @ 11 UNITS/KG/HR 9.231 mls/hr IV .Q24H KENDY Rx#: [id number] Oral 480 220 Other: Voiding Method Toilet # Voids 1 1 1 - Constitutional General appearance: Present: no acute distress - Respiratory Respiratory: bilateral: CTA - Cardiovascular Rhythm: regular Heart sounds: normal: S1, S2 Abnormal Heart Sounds: Present: systolic murmur - Labs CBC & Chem 7: 09/20/20 07:18 09/20/20 07:18 Labs: Abnormal Lab Results - Last 24 Hours (Table) 09/19/20 09/20/20 09/20/20 Range/Units 07:07 07:18 07:18 Plt Count 139 L (150-450) k/uL APTT 49.3 H (22.0-30.0) sec Chloride (98-107) mmol/L Carbon Dioxide (22-30) mmol/L BUN (7-17) mg/dL Creatinine (0.52-1.04) mg/dL Free T4 3.01 H (0.78-2.19) ng/dL 09/20/20 Range/Units 07:18 Plt Count (150-450) k/uL APTT (22.0-30.0) sec Chloride 113 H (98-107) mmol/L Carbon Dioxide 20 L (22-30) mmol/L BUN 39 H (7-17) mg/dL Creatinine 1.43 H (0.52-1.04) mg/dL Free T4 (0.78-2.19) ng/dL Assessment and Plan Assessment: Assessment #1 nausea and vomiting and diarrhea #2 dehydration secondary to the above #3 acute renal failure secondary to above #4 electrolytes imbalance secondary to above #5 new diagnosis atrial fibrillation #6 hypertension and dyslipidemia Plan #1 continue the current medical regimen #2 and hydralazine to the current medical regimen #3 add oral anticoagulation #4 the patient can be discharged home
[2020-09-20 11:23] VITALS: TEMP 96.1
[2020-09-20] MEDS ORDERED: APIXABAN 5 MG TAB PO SCH (11:45)
[2020-09-20] MEDS: hydrALAZINE HCL 25 MG TAB PO SCH ×2 (12:32→15:22)
[2020-09-20 12:52] VITALS: PULSE 71
[2020-09-20] MEDS ORDERED: FUROSEMIDE 10 MG/ML 2 ML VIAL IV ONE (14:12)
[2020-09-20 14:36] VITALS: BP 167/62
--- NOTE | 2020-09-20 15:04 | PN ---
PROGRESS NOTE Patient is seen for followup for acute kidney injury. Her renal function has improved. The patient was maintained on IV fluids. Serum creatinine down to 1.4 from 1.9 on initial admission. Prior creatinine in May was 1.5 mg/dL. The patient is possibly being discharged today. She denies any significant complaints. She has had good urine output. PHYSICAL EXAMINATION: Today blood pressure was 148/70, heart rate 79 per minute. She is afebrile. Examination of the heart S1, S2. Examination of lungs, decreased breath sounds at bases. Abdomen is soft, nontender. Examination of lower extremities shows no significant edema. ETCHER ENAMELING exam grossly intact. LAB: Show sodium 140, potassium 5.0, chloride 113, CO2 is 20, BUN 39, creatinine 1.43, hemoglobin 14.4 g/dL ASSESSMENT: 1. Acute kidney injury secondary to hypoperfusion, hypovolemia, now improved. IV fluids were discontinued. Serum creatinine at baseline currently. 2. Chronic kidney disease stage 3 previous creatinine 1.4 secondary to nephrosclerosis. There is evidence of trace proteinuria. 3. Hyperkalemia associated with acute kidney injury now resolved. 4. Right renal mass about 4.2 cm. Further workup to be done as outpatient with ultrasound or CT with IV contrast. 5. New onset atrial fibrillation maintained on Eliquis, rate is controlled. 6. Hypertension. Blood pressure remains on the higher side. PLAN: Can resume JUNAID inhibitors at low dose. She may also be mildly volume overloaded, particularly with initiation of hydralazine. Therefore, we may need to resume diuretics as well as outpatient. If hydralazine was started in the hospital, we should eventually taper it down and discontinue as outpatient. I do not see hydralazine on her home medication list in the H and P. Plan is Lasix IV x1. Need to monitor closely as outpatient for adjustment of blood pressure medications, including the restarting JUNAID inhibitors and possible need for diuretics. If hydralazine was started in the hospital, we can likely taper it off and discontinue as this will further worsen salt and water retention. MMODL / IJN: [id number] /
== END 2020-09-20 16:14 | disposition home or self-care (01) | DRG 309 ==
LOC: EC 21:56 → 3SCARD 09-18 02:23
PROVIDERS: ADMIT Internal Medicine; ATTEND Internal Medicine
DX: I48.0 Paroxysmal atrial fibrillation (principal); N17.9 Acute kidney failure, unspecified; E87.1 Hypo-osmolality and hyponatremia; Z20.828 Contact with and (suspected) exposure to other viral communicable diseases; I12.9 Hypertensive chronic kidney disease with stage 1 through stage 4 chronic kidney disease, or unspecified chronic kidney disease; N18.30 Chronic kidney disease, stage 3 unspecified; F17.200 Nicotine dependence, unspecified, uncomplicated; E87.5 Hyperkalemia; Z96.653 Presence of artificial knee joint, bilateral; E89.0 Postprocedural hypothyroidism; E78.5 Hyperlipidemia, unspecified; D72.829 Elevated white blood cell count, unspecified; E86.1 Hypovolemia; E86.0 Dehydration; N28.89 Other specified disorders of kidney and ureter; Z79.01 Long term (current) use of anticoagulants; Z90.710 Acquired absence of both cervix and uterus; Z79.899 Other long term (current) drug therapy; Z79.890 Hormone replacement therapy; Z88.5 Allergy status to narcotic agent; Z88.8 Allergy status to other drugs, medicaments and biological substances; Z91.040 Latex allergy status
CPT/HCPCS: 36415; 74176; 80048; 80053; 81001; 82150; 83605; 83690; 84132; 84439; 84443; 84484; 85025; 85610; 85730; 87635; 93005; 93306; 96361; 96365; 96375; 99285

== ENCOUNTER 2020-09-28 11:03 | Observation (INO) | payer MEDICARE, OTHER ==
--- NOTE | 2020-09-28 11:59 | ED ---
General Adult HPI - General Chief complaint: Recheck/Abnormal Lab/Rx Stated complaint: Abnormal labs Time Seen by Provider: 09/28/20 11:15 Source: patient, RN notes reviewed, old records reviewed Mode of arrival: ambulatory Limitations: no limitations - History of Present Illness Initial comments: This is a 80-year-old female who states she comes in today because her doctor's office told her potassium was high. Patient states she is completely asympt omatic. Patient denies any chest pain or palpitations. Patient denies any difficulty breathing. Patient denies any recent fever chills or cough per patient states she was released from the hospital last and while she was in the hospital for potassium was high at that time but she does not know why. Patient denies any abdominal pain. Patient denies any nausea vomiting diarrhea. Patient has no complaints currently. - Related Data Home Medications Medication Instructions Recorded Confirmed Atenolol 50 mg PO DAILY 08/28/14 09/17/20 Estradiol 0.5 mg PO DAILY 08/28/14 09/18/20 Ezetimibe [Zetia] 10 mg PO DAILY 09/17/20 09/17/20 Simvastatin [Zocor] 20 mg PO DAILY 09/17/20 09/17/20 Previous Rx's Medication Instructions Recorded Apixaban [Eliquis] 5 mg PO BID 30 Days #60 tab 09/19/20 Levothyroxine Sodium [Synthroid] 150 mcg PO DAILY@0630 #30 tab 09/20/20 amLODIPine [Norvasc] 10 mg PO DAILY #30 tab 09/20/20 hydrALAZINE HCL [Apresoline] 25 mg PO TID #90 tab 09/20/20 Allergies Allergy/AdvReac Type Severity Reaction Status Date / Time latex Allergy Rash/Hives Verified 09/28/20 11:11 naproxen Allergy Rash/Hives Verified 09/28/20 11:11 Anesthetics - Amide Type - AdvReac Unknown Verified 09/28/20 11:11 Select A [Anesthetics - Amide Type] morphine AdvReac decreased Verified 09/28/20 11:11 heart rate naproxen sodium [From Aleve] AdvReac Rash/Hives Verified 09/28/20 11:11 Review of Systems ROS Statement: Those systems with pertinent positive or pertinent negative responses have been documented in the HPI. ROS Other: All systems not noted in ROS Statement are negative. Past Medical History Past Medical History: Hyperlipidemia, Hypertension, Thyroid Disorder History of Any Multi-Drug Resistant Organisms: None Reported Past Surgical History: Hysterectomy, Orthopedic Surgery Additional Past Surgical History / Comment(s): bilateral knee replacement, thyroidectomy Past Anesthesia/Blood Transfusion Reactions: Previous Problems w/ Anesthesia Additional Past Anesthesia/Blood Transfusion Reaction / Comment(s): states during anesthesia had low blood pressure post procedure Past Psychological History: No Psychological Hx Reported Smoking Status: Current some day smoker Past Alcohol Use History: None Reported Past Drug Use History: None Reported General Exam - General Exam Comments Initial Comments: GENERAL: Patient is well-developed and well-nourished. Patient is nontoxic and well- hydrated and is in no acute distress. ENT: Neck is soft and supple. No significant lymphadenopathy is noted. Oropharynx is clear. Moist mucous membranes. Neck has full range of motion without eliciting any pain. EYES: The sclera were anicteric and conjunctiva were pink and moist. Extraocular movements were intact and pupils were equal round and reactive to light. Eyelids were unremarkable. PULMONARY: Unlabored respirations. Good breath sounds bilaterally. No audible rales rhonchi or wheezing was noted. CARDIOVASCULAR: There is a regular rate and rhythm without any murmurs gallops or rubs. ABDOMEN: Soft and nontender with normal bowel sounds. SKIN: Skin is clear with no lesions or rashes and otherwise unremarkable. NEUROLOGIC: Patient is alert and oriented x3. Cranial nerves II through XII are grossly intact. Motor and sensory are also intact. Normal speech, volume and content. Symmetrical smile. MUSCULOSKELETAL: Normal extremities with adequate strength and full range of motion. No lower extremity swelling or edema. No calf tenderness. LYMPHATICS: No significant lymphadenopathy is noted PSYCHIATRIC: Normal psychiatric evaluation. Limitations: no limitations Course Vital Signs 09/28/20 11:11 Temperature 98 F Pulse Rate 70 Respiratory 18 Rate Blood Pressure 167/77 O2 Sat by Pulse 100 Oximetry Medical Decision Making - Medical Decision Making EKG shows atrial fibrillation at a rate of 72 bpm QRS is 82 QT intervals 372 QTC is 47. Her patient has hyperkalemia I gave the patient sodium bicarbonate and calcium chloride and D50 as well as insulin and a dose of Kayexalate. I spoke with some physicians he agreed to admit the patient admitted the patient wrote admitting orders. - Lab Data Result diagrams: 09/28/20 11:38 09/28/20 11:38 Lab Results 09/28/20 09/28/20 Range/Units 11:38 11:38 WBC 7.3 (3.8-10.6) k/uL RBC 4.65 (3.80-5.40) m/uL Hgb 14.8 (11.4-16.0) gm/dL Hct 44.7 (34.0-46.0) % MCV 96.0 (80.0-100.0) fL MCH 31.8 (25.0-35.0) pg MCHC 33.1 (31.0-37.0) g/dL RDW 13.4 (11.5-15.5) % Plt Count 169 (150-450) k/uL MPV 7.9 Neutrophils % 77 % Lymphocytes % 12 % Monocytes % 7 % Eosinophils % 2 % Basophils % 0 % Neutrophils # 5.6 (1.3-7.7) k/uL Lymphocytes # 0.9 L (1.0-4.8) k/uL Monocytes # 0.5 (0-1.0) k/uL Eosinophils # 0.2 (0-0.7) k/uL Basophils # 0.0 (0-0.2) k/uL Sodium 135 L (137-145) mmol/L Potassium 6.1 H* (3.5-5.1) mmol/L Chloride 110 H (98-107) mmol/L Carbon Dioxide 18 L (22-30) mmol/L Anion Gap 7 mmol/L BUN 43 H (7-17) mg/dL Creatinine 1.67 H (0.52-1.04) mg/dL Est GFR (CKD-EPI)AfAm 33 (>60 ml/min/1.73 sqM) Est GFR (CKD-EPI)NonAf 29 (>60 ml/min/1.73 sqM) Glucose 103 H (74-99) mg/dL Calcium 9.5 (8.4-10.2) mg/dL Total Bilirubin 0.7 (0.2-1.3) mg/dL AST 25 (14-36) U/L ALT 23 (4-34) U/L Alkaline Phosphatase 52 (38-126) U/L Total Protein 7.8 (6.3-8.2) g/dL Albumin 4.1 (3.5-5.0) g/dL Disposition Clinical Impression: Hyperkalemia Disposition: ADMITTED IP TO THIS HOSP Referrals: Gina Grant NPC [Primary Care Provider] - 1-2 days Time of Disposition: 13:08
[2020-09-28 12:30] LABS: Basophils % (A) 0 %; Eosinophils # (A) 0.2 k/uL (0-0.7); Eosinophils % (A) 2 %; HCT 44.7 % (34.0-46.0); HGB 14.8 gm/dL (11.4-16.0); Lymphocytes # (A) 0.9 k/uL (1.0-4.8); Lymphocytes % (A) 12 %; MCH 31.8 pg (25.0-35.0); MCHC 33.1 g/dL (31.0-37.0); Mean Platelet Volume 7.9; Monocytes # (A) 0.5 k/uL (0-1.0); Monocytes % (A) 7 %; Neutrophils # (A) 5.6 k/uL (1.3-7.7); Neutrophils % (A) 77 %; Platelet Count 169 k/uL (150-450); RBC 4.65 m/uL (3.80-5.40); RDW 13.4 % (11.5-15.5); WBC 7.3 k/uL (3.8-10.6)
[2020-09-28 12:44] LABS: Albumin 4.1 g/dL (3.5-5.0); Calcium 9.5 mg/dL (8.4-10.2); Total Bilirubin 0.7 mg/dL (0.2-1.3); Total Protein 7.8 g/dL (6.3-8.2)
[2020-09-28 12:46] LABS: Potassium 6.1 mmol/L (3.5-5.1)
[2020-09-28] MEDS ORDERED: DEXTROSE 50% SYRINGE 50 ML IVP STA (12:55)
[2020-09-28] MEDS ORDERED: CALCIUM CHLORIDE 100 MG/ML 10 ML SYRINGE IVP STA (12:55)
[2020-09-28] MEDS ORDERED: INSULIN REGULAR 100 UNIT/ML VIAL IV ONE (12:55)
[2020-09-28] MEDS ORDERED: SODIUM POLYSTYRENE SULFONATE 15 GM/60 ML BOTTLE PO STA (12:55)
[2020-09-28] MEDS ORDERED: SODIUM BICARB 8.4% 50 ML SYR (1 MEQ/ML) IV STA (12:55)
[2020-09-28] MEDS ORDERED: SODIUM CHLORIDE 0.9% 1,000 ML IV ONE (13:10)
[2020-09-28] MEDS ORDERED: NALOXONE 0.4 MG/ML 1 ML VIAL IV PRN (14:21)
--- NOTE | 2020-09-28 14:25 | P.HPIM ---
History of Present Illness H&P Date: 09/28/20 Chief Complaint: Abnormal lab results 80-year-old female who came in because her doctor's office told her potassium was high. Labs were drawn yesterday. Patient states she is completely asymptomatic. Patient denies any chest pain or palpitations. Patient denies any difficulty breathing. Patient denies any recent fever chills or cough. Patient denies any abdominal pain. Patient denies any nausea vomiting diarrhea. She was released from the hospital last and while she was in the hospital for potassium was high at that time but she does not know why. At that time she was given referral to Dr. Kahn from nephrology. She has not made that appointment yet. In the emergency department patient was fully evaluated. Her potassium was 6.1. Creatinine was 1.67 which is chronic. Vital signs were stable. In the emergency department she was given the K lowering cocktails with sodium bicarb, insulin with D50, Kayexalate as well as calcium gluconate. Patient was admitted for further evaluation by nephrology and to lower the potassium. Review of Systems Complete review of system performed, pertinent positives listed per HPI , otherwise negative Past Medical History Past Medical History: Hyperlipidemia, Hypertension, Thyroid Disorder History of Any Multi-Drug Resistant Organisms: None Reported Past Surgical History: Hysterectomy, Orthopedic Surgery Additional Past Surgical History / Comment(s): bilateral knee replacement, thyroidectomy Past Anesthesia/Blood Transfusion Reactions: Previous Problems w/ Anesthesia Additional Past Anesthesia/Blood Transfusion Reaction / Comment(s): states during anesthesia had low blood pressure post procedure Past Psychological History: No Psychological Hx Reported Smoking Status: Current some day smoker Past Alcohol Use History: None Reported Past Drug Use History: None Reported Medications and Allergies Home Medications Medication Instructions Recorded Confirmed Type Atenolol 50 mg PO DAILY 08/28/14 09/28/20 History Estradiol 0.5 mg PO Q48H 08/28/14 09/28/20 History Ezetimibe [Zetia] 10 mg PO DAILY@199909/17/20 09/28/20 History Simvastatin [Zocor] 20 mg PO DAILY@199909/17/20 09/28/20 History Levothyroxine Sodium [Synthroid] 150 mcg PO DAILY@0630 #30 tab 09/20/20 09/28/20 Rx amLODIPine [Norvasc] 10 mg PO DAILY #30 tab 09/20/20 09/28/20 Rx hydrALAZINE HCL [Apresoline] 25 mg PO TID #90 tab 09/20/20 09/28/20 Rx Apixaban [Eliquis] 2.5 mg PO BID 09/28/20 09/28/20 History Aspirin EC [Ecotrin Low Dose] 81 mg PO DAILY 09/28/20 09/28/20 History Cholecalciferol [Vitamin D3 (25 1,000 unit PO DAILY 09/28/20 09/28/20 History Mcg = 1000 Iu)] Allergies Allergy/AdvReac Type Severity Reaction Status Date / Time latex Allergy Rash/Hives Verified 09/28/20 14:18 naproxen Allergy Rash/Hives Verified 09/28/20 14:18 Anesthetics - Amide Type - AdvReac Unknown Verified 09/28/20 14:18 Select A [Anesthetics - Amide Type] morphine AdvReac decreased Verified 09/28/20 14:18 heart rate naproxen sodium [From Aleve] AdvReac Rash/Hives Verified 09/28/20 14:18 Physical Exam Vitals: Vital Signs Temp Pulse Resp BP Pulse Ox 09/28/20 13:39 73 16 180/93 98 09/28/20 11:11 98 F 70 18 167/77 100 Intake and Output 09/27/20 09/28/20 09/28/20 22:59 06:59 14:59 Other: Weight 86.183 kg Constitutional: No acute distress, conversant, pleasant Eyes:Anicteric sclerae, moist conjunctiva, no lid-lag, PERRLA, ENMT: Oropharynx clear, no erythema, exudates Neck: Supple, FROM, no masses, or JVD, No carotid bruits, No thyromegaly Lungs: Clear to auscultation, Clear to percussion, Normal respiratory effort, no accessory muscle use Cardiovascular: Heart regular in rate and rhythm, No murmurs, gallops, or rubs, No peripheral edema Abdominal: Soft, Nontender, no guarding, rebound or rigidity, Normoactive bowel sounds, No hepatomegaly, No splenomegaly, No palpable mass Skin: Normal temperature, tone, texture, turgor, no induration, No subcutaneous nodules, No rash, lesions, No ulcers Extremities: No digital cyanosis, No clubbing, Pedal pulses intact and symmetrical, Radial pulses intact and symmetrical, No calf tenderness Psychiatric: Alert and oriented to person, place and time, appropriate affect, intact judgement Neuro: Muscles Strength 5/5 in all 4 extremities, Sensation to light touch grossly present throughout, Cranial nerves II-XII grossly intact, no focal se nsory deficits Results CBC & Chem 7: 09/28/20 11:38 09/28/20 11:38 Labs: Abnormal Lab Results - Last 24 Hours (Table) 09/28/20 09/28/20 Range/Units 11:38 11:38 Lymphocytes # 0.9 L (1.0-4.8) k/uL Sodium 135 L (137-145) mmol/L Potassium 6.1 H* (3.5-5.1) mmol/L Chloride 110 H (98-107) mmol/L Carbon Dioxide 18 L (22-30) mmol/L BUN 43 H (7-17) mg/dL Creatinine 1.67 H (0.52-1.04) mg/dL Glucose 103 H (74-99) mg/dL Assessment and Plan Plan: Hyperkalemia likely secondary to chronic kidney disease stage 4 We'll follow potassium level upon admission to the floor, Consult nephrology Recently diagnosed atrial fibrillation, currently with normal rate Continue eliquis Continue atenolol Chronic Hyperlipidemia, Hypertension, Hypothyroidism All stable Resume meds Observation admit. Anticipated discharge in am.
[2020-09-28 15:09] LABS: Glucose,Whole Blood 70 mg/dL (75-99)
[2020-09-28] MEDS: atenoloL 50 MG TAB PO SCH (15:25)
[2020-09-28 15:43] LABS: Calcium 10.2 mg/dL (8.4-10.2)
[2020-09-28 15:52] LABS: Glucose,Whole Blood 134 mg/dL (75-99)
[2020-09-28] MEDS: hydrALAZINE HCL 25 MG TAB PO SCH ×2 (16:16→22:33)
[2020-09-28] MEDS ORDERED: ATORVASTATIN 10 MG TAB PO SCH (20:00)
[2020-09-28] MEDS ORDERED: EZETIMIBE 10 MG TAB PO SCH (20:00)
[2020-09-28] MEDS: APIXABAN 2.5 MG TABLET PO SCH (22:32)
[2020-09-29] MEDS ORDERED: LEVOTHYROXINE 75 MCG TAB PO SCH (06:30)
[2020-09-29 07:04] LABS: Glucose,Whole Blood 95 mg/dL (75-99)
[2020-09-29 08:39] VITALS: TEMP 97.8
[2020-09-29] MEDS: hydrALAZINE HCL 25 MG TAB PO SCH (08:52)
[2020-09-29] MEDS: APIXABAN 2.5 MG TABLET PO SCH (08:52)
[2020-09-29] MEDS: atenoloL 50 MG TAB PO SCH (08:52)
[2020-09-29] MEDS ORDERED: ASPIRIN 81 MG PO SCH (09:00)
[2020-09-29] MEDS ORDERED: amLODIPine 10 MG TAB PO SCH (09:00)
[2020-09-29 09:39] LABS: African American GFR (CKD) 41.3 (60.0-200.0); Anion Gap 6.9 mmol/L (4.00-12.00); BUN/Creat Ratio 29.29 Ratio (12.00-20.00); Carbon Dioxide 22.1 mmol/L (21.6-31.8); Non-African American GFR(CKD) 35.6 (60.0-200.0); Potassium 5.2 mmol/L (3.5-5.5)
[2020-09-29] MEDS ORDERED: SODIUM POLYSTYRENE SULFONATE 15 GM/60 ML BOTTLE PO STA (11:45)
--- NOTE | 2020-09-29 12:23 | US ---
EXAMINATION TYPE: US venous doppler duplex LE LT DATE OF EXAM: 09/29/2020 12:09 PM COMPARISON: NONE CLINICAL HISTORY: leg aching . Achy, numb left leg, no swelling, no h/o dvt SIDE PERFORMED: Left TECHNIQUE: The lower extremity deep venous system is examined utilizing real time linear array sonog johanne with graded compression, doppler sonography and color-flow sonography. VESSELS IMAGED: Common Femoral Vein Deep Femoral Vein Greater Saphenous Vein * Femoral Vein Popliteal Vein Small Saphenous Vein * Proximal Calf Veins (* superficial vessels) Left Leg: Negative for DVT 4.0cm complex cyst within left popiteal fossa may represent a Hdillon's c yst IMPRESSION: 1. Grayscale, color doppler, spectral doppler imaging performed of the deep veins of the lower extrem ities. There is normal flow, compressibility, vascular waveforms. 2. complex left popliteal fossa cyst
--- NOTE | 2020-09-29 12:48 | P.DS ---
Providers Date of admission: 09/28/20 13:11 Expected date of discharge: 09/29/20 Attending physician: Torsten Gavin MD Consults: 09/28/20 13:10 Consult Physician Urgent Consulting Provider: Sami Bettencourt Consult Reason/Comments: Hyperkalemia Do you want consulting provider notified?: Yes Primary care physician: Gina Grant [facility] Hospital Course: 80-year-old female who came in because her doctor's office told her potassium was high. Labs were drawn yesterday. Patient states she is completely asymptomatic. Patient denies any chest pain or palpitations. Patient denies any difficulty breathing. Patient denies any recent fever chills or cough. Patient denies any abdominal pain. Patient denies any nausea vomiting diarrhea. She was released from the hospital last and while she was in the hospital for potassium was high at that time but she does not know why. At that time she was given referral to Dr. Kahn from nephrology. She has not made that appointment yet. In the emergency department patient was fully evaluated. Her potassium was 6.1. Creatinine was 1.67 which is chronic. Vital signs were stable. In the emergency department she was given the K lowering cocktails with sodium bicarb, insulin with D50, Kayexalate as well as calcium gluconate. Patient was admitted for further evaluation by nephrology and to lower the potassium. Upon admission her potassium was followed up, came down to 5 on the evening of admission. This morning it came up to 5.2. Due to that she was given 15 g of kayexelate this morning. Patient is currently feeling well. Patient was started on patiromer to chronically lower potassium. Atenolol which might be contributing to the hyperkalemia could not be stopped due to history of A. fib. Her only complaint today is some pain and spasms behind her left knee and left calf areas. Due to that she had Doppler ultrasound of the left lower extremity and that did not show any DVT. Patient will be discharged home in stable condition. Plan - Discharge Summary Discharge Rx Participant: Yes New Discharge Prescriptions: New Patiromer Calcium Sorbitex [Veltassa] 16.8 gm PO DAILY 30 Days #30 powd.pack Continue Estradiol 0.5 mg PO Q48H Atenolol 50 mg PO DAILY Simvastatin [Zocor] 20 mg PO DAILY@1999 Ezetimibe [Zetia] 10 mg PO DAILY@1999 Levothyroxine Sodium [Synthroid] 150 mcg PO DAILY@0630 #30 tab hydrALAZINE HCL [Apresoline] 25 mg PO TID #90 tab amLODIPine [Norvasc] 10 mg PO DAILY #30 tab Cholecalciferol [Vitamin D3 (25 Mcg = 1000 Iu)] 1,000 unit PO DAILY Aspirin EC [Ecotrin Low Dose] 81 mg PO DAILY Apixaban [Eliquis] 2.5 mg PO BID Discharge Medication List Atenolol 50 mg PO DAILY 08/28/14 [History] Estradiol 0.5 mg PO Q48H 08/28/14 [History] Ezetimibe [Zetia] 10 mg PO DAILY@199909/17/20 [History] Simvastatin [Zocor] 20 mg PO DAILY@199909/17/20 [History] Levothyroxine Sodium [Synthroid] 150 mcg PO DAILY@0630 #30 tab 09/20/20 [Rx] amLODIPine [Norvasc] 10 mg PO DAILY #30 tab 09/20/20 [Rx] hydrALAZINE HCL [Apresoline] 25 mg PO TID #90 tab 09/20/20 [Rx] Apixaban [Eliquis] 2.5 mg PO BID 09/28/20 [History] Aspirin EC [Ecotrin Low Dose] 81 mg PO DAILY 09/28/20 [History] Cholecalciferol [Vitamin D3 (25 Mcg = 1000 Iu)] 1,000 unit PO DAILY 09/28/20 [History] Patiromer Calcium Sorbitex [Veltassa] 16.8 gm PO DAILY 30 Days #30 powd.pack 09/29/20 [Rx] Follow up Appointment(s)/Referral(s): Gina Grant, BRITTANI [Primary Care Provider] - 1-2 days
[2020-09-29 15:27] VITALS: BP 150/78; PULSE 69; RESP 18
== END 2020-09-29 16:35 ==
LOC: EC 11:03 → INTOOBSV 13:11 → 3SCARD 13:11 → 4SSUR 17:37
PROVIDERS: ADMIT Internal Medicine; ATTEND Internal Medicine
DX: E87.5 Hyperkalemia (principal); I12.9 Hypertensive chronic kidney disease with stage 1 through stage 4 chronic kidney disease, or unspecified chronic kidney disease; N18.4 Chronic kidney disease, stage 4 (severe); E78.5 Hyperlipidemia, unspecified; E89.0 Postprocedural hypothyroidism; F17.200 Nicotine dependence, unspecified, uncomplicated; I48.91 Unspecified atrial fibrillation; M79.662 Pain in left lower leg; R25.2 Cramp and spasm; Z79.899 Other long term (current) drug therapy; Z79.890 Hormone replacement therapy; Z79.01 Long term (current) use of anticoagulants; Z79.82 Long term (current) use of aspirin; Z91.040 Latex allergy status; Z88.6 Allergy status to analgesic agent; Z88.4 Allergy status to anesthetic agent; Z88.5 Allergy status to narcotic agent; Z90.710 Acquired absence of both cervix and uterus; Z98.890 Other specified postprocedural states; Z96.653 Presence of artificial knee joint, bilateral; Z91.89 Other specified personal risk factors, not elsewhere classified
CPT/HCPCS: 96374; 96375; 99285; 36415; 93005; 80053; 80048; 85025; 93971; G0378 ×3

== ENCOUNTER 2021-01-01 21:02 | Emergency (ER) | payer MEDICARE, OTHER ==
[2021-01-01 21:48] VITALS: RESP 18; TEMP 98.2
--- NOTE | 2021-01-01 22:15 | XR ---
EXAMINATION TYPE: XR foot complete LT DATE OF EXAM: 01/01/2021 COMPARISON: NONE HISTORY: Foot pain TECHNIQUE: 3 views FINDINGS: There are plantar and Achilles calcaneal spurs. Metatarsals are intact. There is moderate s purring at the first tarsometatarsal joint. The toes appear intact. IMPRESSION: Degenerative hypertrophic spurring. No fracture seen. No sign of inflammatory arthritis.
[2021-01-01] MEDS ORDERED: Acetaminophen-Codeine 300-30mg TAB PO STA (22:18)
--- NOTE | 2021-01-01 22:26 | ED ---
Extremity Problem HPI - General Chief complaint: Extremity Problem,Nontraumatic Stated complaint: LT foot pain Time Seen by Provider: 01/01/21 21:31 Source: patient, family, RN notes reviewed, old records reviewed Mode of arrival: EMS Limitations: no limitations - History of Present Illness Initial comments: This is a 80-year-old female ER today. She presents today for evaluation regards to severe left foot pain left foot and ankle pain swelling. Pain that radiates from her knee down to her foot. Patient states the swelling is new. She had similar pain a few months ago was in the ER admitted to the hospital with no acute findings. Patient denies any trauma. No shortness of breath cough or congestion. No chest pain MD Complaint: extremity pain, extremity swelling, joint pain -: days(s) Location: left, lower extremity History of Same: Yes -: Yes myalgia, Yes arthralgia Radiation: proximal, distal Quality: stabbing Consistency: constant Improves with: nothing Worsens with: weight bearing Associated Symptoms: denies other symptoms - Related Data Home Medications Medication Instructions Recorded Confirmed Atenolol 50 mg PO DAILY 08/28/14 09/28/20 Estradiol 0.5 mg PO Q48H 08/28/14 09/28/20 Ezetimibe [Zetia] 10 mg PO DAILY@199909/17/20 09/28/20 Simvastatin [Zocor] 20 mg PO DAILY@199909/17/20 09/28/20 Apixaban [Eliquis] 2.5 mg PO BID 09/28/20 09/28/20 Aspirin EC [Ecotrin Low Dose] 81 mg PO DAILY 09/28/20 09/28/20 Cholecalciferol [Vitamin D3 (25 1,000 unit PO DAILY 09/28/20 09/28/20 Mcg = 1000 Iu)] Previous Rx's Medication Instructions Recorded Levothyroxine Sodium [Synthroid] 150 mcg PO DAILY@0630 #30 tab 09/20/20 amLODIPine [Norvasc] 10 mg PO DAILY #30 tab 09/20/20 hydrALAZINE HCL [Apresoline] 25 mg PO TID #90 tab 09/20/20 Patiromer Calcium Sorbitex 16.8 gm PO DAILY 30 Days #30 09/29/20 [Veltassa] powd.pack Allergies Allergy/AdvReac Type Severity Reaction Status Date / Time latex Allergy Rash/Hives Verified 01/01/21 21:41 naproxen Allergy Rash/Hives Verified 01/01/21 21:41 Anesthetics - Amide Type - AdvReac Unknown Verified 01/01/21 21:41 Select A [Anesthetics - Amide Type] morphine AdvReac decreased Verified 01/01/21 21:41 heart rate naproxen sodium [From Aleve] AdvReac Rash/Hives Verified 01/01/21 21:41 Review of Systems ROS Statement: Those systems with pertinent positive or pertinent negative responses have been documented in the HPI. ROS Other: All systems not noted in ROS Statement are negative. Past Medical History Past Medical History: Atrial Fibrillation, Hyperlipidemia, Hypertension, Thyroid Disorder Additional Past Medical History / Comment(s): new onset a-fib 09/18/20 History of Any Multi-Drug Resistant Organisms: None Reported Past Surgical History: Hysterectomy, Orthopedic Surgery Additional Past Surgical History / Comment(s): bilateral knee replacement, thyroidectomy Past Anesthesia/Blood Transfusion Reactions: Previous Problems w/ Anesthesia Additional Past Anesthesia/Blood Transfusion Reaction / Comment(s): states during anesthesia had low blood pressure post procedure Past Psychological History: No Psychological Hx Reported Smoking Status: Former smoker Past Alcohol Use History: None Reported Past Drug Use History: None Reported General Exam General appearance: alert, in no apparent distress Head exam: Present: atraumatic, normocephalic, normal inspection Eye exam: Present: normal appearance, PERRL, EOMI. Absent: scleral icterus, conjunctival injection, periorbital swelling ENT exam: Present: normal exam, mucous membranes moist Neck exam: Present: normal inspection. Absent: tenderness, meningismus, lymphadenopathy Respiratory exam: Present: normal lung sounds bilaterally. Absent: respiratory distress, wheezes, rales, rhonchi, stridor Cardiovascular Exam: Present: regular rate, normal rhythm, normal heart sounds. Absent: systolic murmur, diastolic murmur, rubs, gallop, clicks GI/Abdominal exam: Present: soft, normal bowel sounds. Absent: distended, tenderness, guarding, rebound, rigid Extremities exam: Present: normal inspection, full ROM, normal capillary refill. Absent: tenderness, pedal edema, joint swelling, calf tenderness Back exam: Present: normal inspection Neurological exam: Present: alert, oriented X3, CN II-XII intact Psychiatric exam: Present: normal affect, normal mood Skin exam: Present: warm, dry, intact, normal color. Absent: rash Course Vital Signs 01/01/21 21:43 Temperature 98.2 F Pulse Rate 63 Respiratory 18 Rate Blood Pressure 164/72 O2 Sat by Pulse 95 Oximetry - Reevaluation(s) Reevaluation #1: 01/01/21 22:58 Medical records reviewed Reevaluation #2: 01/01/21 23:55 Patient's pain is improved Reevaluation #3: 01/01/21 23:55 Patient informed of results questions are answered and can be discharged Medical Decision Making - Medical Decision Making 40 female DEL with left foot pain, normal arterial pulses, no evidence and swelling in the ankle. Patient prior evaluation for DVT which was negative. Patient symptoms of been persistent for a few weeks to months. Again no acute findings, patient can be discharged - Radiology Data Radiology results: report reviewed (CT left ankle and foot are negative for acute disease), image reviewed Disposition Clinical Impression: Left foot pain Disposition: HOME SELF-CARE Condition: Good Instructions (If sedation given, give patient instructions): Metatarsalgia (DC), Swollen Joint (ED), Arthralgia (ED) Is patient prescribed a controlled substance at d/c from ED?: No Referrals: Haresh Hardy MD [Primary Care Provider] - 1-2 days
--- NOTE | 2021-01-01 23:27 | CT ---
EXAMINATION TYPE: CT lower extremity LT wo con DATE OF EXAM: 01/01/2021 COMPARISON: HISTORY: LT foot/ankle pain. Pt denies injury, but woke up this morning not able to walk on it CT DLP: 210.5 mGycm Automated exposure control for dose reduction was used. Images obtained from the mid tibia to the bottom of the foot without contrast. There are plantar and Achilles calcaneal spurs. There is some spurring of the anterior and posterior malleolus. Ankle mortise is anatomic. There is some calcification and spurring at the tibia fibula stevenson int. The talus is intact. Subtalar joint is intact. The metatarsals are intact. I see no bony destruc tive process. There is anterior hypertrophic spurring at the first tarsometatarsal joint. There is no subluxation. I see no evidence of a soft tissue mass. There is mild spurring at the first MP joint. I see no erosion. IMPRESSION: Calcaneal spurring. No fracture seen. There are some hypertrophic degenerative changes as above. No e vidence of a soft tissue mass.
[2021-01-02] MEDS ORDERED: Acetaminophen-Codeine 300-30mg TAB PO STA (00:06)
[2021-01-02] MEDS ORDERED: ACET/COD 300 MG/30 MG STARTER PACK 6 TAB BTL PO STA (00:06)
[2021-01-02 00:38] VITALS: BP 131/65; PULSE 80
--- NOTE | 2021-01-02 01:07 | US ---
EXAM: US Duplex Left Lower Extremity Veins CLINICAL HISTORY: ITS.REASON US Reason: pain TECHNIQUE: Real-time duplex ultrasound scan of the left lower extremity veins integrating B-mode two-dimensional vascular structure, Doppler spectral analysis, color flow Doppler imaging and compression. COMPARISON: No relevant prior studies available. FINDINGS: Deep veins: Unremarkable. No DVT in the visualized common femoral, femoral, proximal deep femoral or popliteal veins. The veins demonstrate normal color flow, are normally compressible, with normal phasic flow and/or augmentation response. Superficial veins: Unremarkable. No thrombus in the visualized great saphenous vein. Soft tissues: No acute findings. No popliteal cyst. IMPRESSION: No evidence of deep vein thrombosis in the left lower extremity.
== END 2021-01-02 01:41 | disposition home or self-care (01) ==
LOC: EC 21:02
DX: M79.672 Pain in left foot (principal); I48.91 Unspecified atrial fibrillation; I10 Essential (primary) hypertension; E78.5 Hyperlipidemia, unspecified; Z79.01 Long term (current) use of anticoagulants; Z79.82 Long term (current) use of aspirin; Z79.899 Other long term (current) drug therapy; Z88.6 Allergy status to analgesic agent; Z91.040 Latex allergy status; Z88.5 Allergy status to narcotic agent; Z88.4 Allergy status to anesthetic agent; Z87.891 Personal history of nicotine dependence; Z96.653 Presence of artificial knee joint, bilateral
CPT/HCPCS: 99284

== ENCOUNTER → 2021-01-09 | Outpatient (CLI) | payer MEDICARE, OTHER ==
--- NOTE | 2021-01-10 07:52 | MR ---
EXAMINATION TYPE: MR kidney wo/w con DATE OF EXAM: 01/09/2021 COMPARISON: CT abdomen and pelvis September 17, 2020 HISTORY: Right renal mass CONTRAST: Standard multiplanar, multisequence MRI departmental protocol utilizing 8 mL intravenous Gadavist wendie olinium contrast. Imaging is performed of the abdomen focusing on the bilateral kidneys. FINDINGS: Kidneys: Persistent asymmetric diminished size and global cortical thinning to the left kidney. No co ncerning left-sided solid or cystic mass or hydronephrosis. Right kidney shows larger oval well-defined exophytic lesion posterior aspect upper pole level. This measures approximately 6.5 x 6.7 cm axial series 701 image 32 and 7.9 cm craniocaudal dimension serie s 301 image 35 versus 4.7 x 2.9 x [address] study. The lesion shows slightly heterogeneity with hypodense predominantly slightly increased signal on T1-weighted images relative to adjacent kidney with linear areas of marked increased signal along the periphery and deep left aspect. Lesion is of l ower intensity versus adjacent kidney on T2-weighted images with marked low signal anteriorly noted. Dynamic postcontrast images do not show enhancement, areas of linear increased T1 signal remain prese nt without fat saturation. It is uncertain if lesion arises from the kidney, I favor it is likely ret roperitoneal in location as there is mass effect on the posterior margin of the kidney which is inden anne-marie particularly upper to mid pole aspect. In addition there is new oval second well-defined lesion inferior to this that is T1 hyperintense rel ative to adjacent kidney but slightly hypointense relative to subcutaneous fat and is T2 hypointense with rim-type enhancement measuring 5.3 x 5.0 cm axial image 50 series 503. This finding is consisten t with new focal retroperitoneal hematoma with subacute internal hemorrhage. Other: There are small to tiny right greater than left pleural effusions increased in size from recen t CT. Stable small sized hiatal hernia. Gallbladder is noted surgically absent. Mild left-sided intrahepatic biliary dilatation redemonstrate d. Pancreas and spleen appear within normal limits. Adrenal glands appear within normal limits. No bledsoe spicious small or large bowel dilatation. Multilevel spurring and disc space narrowing in the visualized spine. There is narrowing in the bilat eral sacroiliac joints. IMPRESSION: Enlarging right posterior renal upper pole retroperitoneal well-defined heterogeneous les ion without distinct enhancement. I suspect retroperitoneal hematoma with subacute on chronic hemorrh age with second more inferior focal right-sided slightly smaller retroperitoneal subacute hematoma on current study. I would advise ultrasound correlation of the more superior lesion to rule out solid m ass or component which would be worrisome given interval enlargement from most recent CT. Has there b een history of recent trauma and/or attempted biopsy since most recent CT? Clinical correlation and f ollow-up advised.
== END | disposition home or self-care (01) ==
LOC: RADMRIMAIN 12:14
PROVIDERS: ATTEND Urology
DX: N28.89 Other specified disorders of kidney and ureter (principal)
CPT/HCPCS: 74183; A9585

== ENCOUNTER 2021-03-04 05:58 | Day surgery (SDC) | payer MEDICARE, OTHER ==
[2021-02-28 14:49] VITALS: BMI 34.0
[~2021-03-04 05:58] MED LIST: ALPRAZolam 0.25 MG TAB PO PRN; ASPIRIN 325 MG TAB PO PRN
[2021-03-04] MEDS ORDERED: SODIUM CHLORIDE 0.9% 1,000 ML in EMPTY BAG 1 BAG IV ONE (06:00)
[2021-03-04] MEDS ORDERED: SODIUM CHLORIDE 0.9% 1,000 ML IV ONE ×5 (06:22)
[2021-03-04] MEDS ORDERED: ASPIRIN 81 MG ONE (06:31)
[2021-03-04 06:49] VITALS: TEMP 98.5
[2021-03-04 07:30] LABS: HCT 33.4 % (34.0-46.0); HGB 11.4 gm/dL (11.4-16.0); MCH 31.3 pg (25.0-35.0); MCV 92.1 fL (80.0-100.0); Mean Platelet Volume 7.2; Platelet Count 237 k/uL (150-450); RBC 3.63 m/uL (3.80-5.40); RDW 13.6 % (11.5-15.5); WBC 7.5 k/uL (3.8-10.6)
[2021-03-04] MEDS ORDERED: fentaNYL (PF) 50 MCG/ML 2 ML AMP IV ONE (07:50)
[2021-03-04] MEDS ORDERED: LIDOCAINE 1% INJ 10MG/ML (20 ML MDV) SQ ONE (07:50)
[2021-03-04 07:56] LABS: Magnesium 1.8 mg/dL (1.6-2.3); Phosphorus 4.5 mg/dL (2.5-4.5); Potassium 4.3 mmol/L (3.5-5.1); Total Bilirubin 0.6 mg/dL (0.2-1.3); Total Protein 7.8 g/dL (6.3-8.2)
[2021-03-04] MEDS ORDERED: IOPAMIDOL-250 100ML BTL INTRAARTER ONE ×2 (08:02)
[2021-03-04] MEDS ORDERED: hydrALAZINE HCL 20 MG/ML 1 ML VIAL IVP STA (08:28)
[2021-03-04] MEDS ORDERED: hydrALAZINE HCL 20 MG/ML 1 ML VIAL ONE (08:29)
[2021-03-04] MEDS ORDERED: SODIUM CHLORIDE 0.9% 1,000 ML IV SCH (08:30)
--- NOTE | 2021-03-04 08:50 | IR ---
EXAMINATION TYPE: IR angio abdominal w runoff DATE OF EXAM: 03/04/2021 COMPARISON: NONE HISTORY: Fluoroscopy time. Fluoroscopy was provided to the referring clinician.
[2021-03-04 11:16] VITALS: RESP 1
[2021-03-04 11:26] VITALS: PULSE 63
[2021-03-04 11:27] VITALS: BP 149/83
[2021-03-04 11:46] LABS: % Iron Saturation 12.74 (12.00-45.00)
[2021-03-04 11:56] LABS: Ferritin 196.2 ng/mL (10.0-291.0)
--- NOTE | 2021-03-04 13:32 | AN ---
ANGIOGRAPHY REPORT DATE OF SERVICE: March 04, 2021. PERFORMING PHYSICIAN: Tolu Rondon MD. PROCEDURE PERFORMED: 1. Abdominal aortogram. 2. Bilateral lower extremities. INDICATION: This is an 81-year-old female patient who was experiencing bilateral lower extremities intermittent claudication and underwent lower extremities arterial duplex study and that came into be abnormal. Because of that, an angiogram was advised. APPROACH: Right common femoral artery. COMPLICATION: None. LEVEL OF SEDATION: Moderate with sedation length of 30 minutes. PROCEDURE DESCRIPTION: After obtaining an informed consent, the patient was brought to the cardiac director of labor relations. The right common femoral artery was cannulated using micropuncture technique and a micropuncture wire passed easily. Then I placed a 6-Ethiopian sheath at the right common femoral artery. After that, I did an abdominal aortogram and bilateral lower extremities runoff using 5-Ethiopian pigtail catheter which was initially placed at the level of the renal artery and it was pulled into above the bifurcation of the aorta to right and left common iliac arteries. The procedure was completed without any complication. SELECTIVE PERIPHERAL ANGIOGRAM: 1. The aorta appeared to have mild disease only and seems to be extremely calcified. 2. Common iliac arteries: The ostial of the right and left common iliac artery appeared to be extremely calcified with eccentric lesion seems to be in the range of 70% to 80%. 3. Internal iliac arteries: The right and left internal iliac arteries are patent. 4. External iliac arteries: The right external iliac artery appeared to have intermediate lesion only and the left external iliac artery appeared to have mild to moderate diffuse disease. 5. Common femoral arteries: The right common femoral artery appeared to have mild disease only and the left common femoral artery appeared to be occluded. 6. Profunda: Both profunda are patent. 7. The SFA: The right SFA is occluded on short segment and the left SFA is also occluded as it appeared to have severe disease. 8. Popliteals: Both popliteal are not visualized because of prosthesis in both knees. 9. Below the knee there are 3-vessel runoff below the knee bilaterally. CONCLUSION: 1. 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 2. Occluded right SFA on short segment. 3. Occluded left common femoral artery on short segment in the mid portion. 4. Three-vessel runoff below the knee bilaterally. POSTPROCEDURE MANAGEMENT: 1. Proceed with SCRAP CRUSHER of the right and left common iliac arteries probably in a kissing technique. 2. Evaluate the patient's symptoms after that and consider revascularization of the femoral bilaterally if she continues to be symptomatic. MMODL / IJN: [id number] /
== END 2021-03-04 15:05 | disposition home or self-care (01) ==
LOC: CATHCVL 05:58
PROVIDERS: ATTEND Internal Medicine Interventional Cardiology
DX: I70.213 Atherosclerosis of native arteries of extremities with intermittent claudication, bilateral legs (principal); I12.9 Hypertensive chronic kidney disease with stage 1 through stage 4 chronic kidney disease, or unspecified chronic kidney disease; N18.9 Chronic kidney disease, unspecified; I48.91 Unspecified atrial fibrillation; Z20.822 Contact with and (suspected) exposure to COVID-19; E78.5 Hyperlipidemia, unspecified; Z72.0 Tobacco use; Z79.01 Long term (current) use of anticoagulants; Z79.82 Long term (current) use of aspirin; Z79.899 Other long term (current) drug therapy; Z88.5 Allergy status to narcotic agent; Z88.6 Allergy status to analgesic agent; Z91.040 Latex allergy status
CPT/HCPCS: 36200; 75625; 75716; 80053; 82728; 83540; 83550; 83735; 84100; 84550; 85027; 82306; 83970; 87635; C1769 ×5; C1894 ×2; J0360; J2001; J3010; Q9966

== ENCOUNTER → 2021-04-02 | Outpatient (CLI) | payer MEDICARE, OTHER ==
--- NOTE | 2021-04-02 13:22 | US ---
EXAMINATION TYPE: US kidneys/renal and bladder DATE OF EXAM: 04/02/2021 COMPARISON: MRI 01/09/2021, CT 09/17/2020. CLINICAL HISTORY: N28.3 renal cyst. EXAM MEASUREMENTS: Right Kidney: 9.8 x 4.0 x 4.9 cm Left Kidney: 7.8 x 4.5 x 4.6 cm Right Kidney: Large exophytic lesion measuring 6.3 x 6.9 x 6.7 cm. Left Kidney: atrophied Bladder: not seen Bilateral Jets seen: No There is no evidence for hydronephrosis at this point in time. No nephrolithiasis is seen. IMPRESSION: 1. Heterogeneous exophytic right renal lesion measures up to 6.9 cm. The second lesion seen on recent MRI is not identified on this ultrasound. MRI was last performed 3 months ago and follow-up could be performed with and without contrast with subtraction imaging in order to ascertain possible internal enhancement. 2. Atrophy left kidney.
== END | disposition home or self-care (01) ==
LOC: RADUSWWP 10:32
PROVIDERS: ATTEND Urology
DX: N28.9 Disorder of kidney and ureter, unspecified (principal); N26.1 Atrophy of kidney (terminal)
CPT/HCPCS: 76770

== ENCOUNTER 2021-04-10 06:49 | Day surgery (SDC) | payer MEDICARE, OTHER ==
[2021-04-09 08:35] VITALS: BMI 34.0
[~2021-04-10 06:49] MED LIST changes: -ALPRAZolam 0.25 MG TAB PO PRN; -ASPIRIN 325 MG TAB PO PRN; +SODIUM CHLORIDE 0.9% 1,000 ML in EMPTY BAG 1 BAG IV ONE
[2021-04-10 07:37] LABS: Basophils % (A) 1 %; Eosinophils # (A) 0.4 k/uL (0-0.7); Eosinophils % (A) 4 %; HCT 40.4 % (34.0-46.0); Lymphocytes # (A) 1.2 k/uL (1.0-4.8); Lymphocytes % (A) 14 %; MCH 30.4 pg (25.0-35.0); MCHC 32.1 g/dL (31.0-37.0); MCV 94.7 fL (80.0-100.0); Mean Platelet Volume 7.7; Monocytes # (A) 0.6 k/uL (0-1.0); Monocytes % (A) 8 %; Neutrophils % (A) 73 %; Platelet Count 224 k/uL (150-450); RBC 4.26 m/uL (3.80-5.40); RDW 14.1 % (11.5-15.5); WBC 8.3 k/uL (3.8-10.6)
[2021-04-10 07:56] LABS: Calcium 9.6 mg/dL (8.4-10.2); Potassium 5.1 mmol/L (3.5-5.1)
[2021-04-10] MEDS ORDERED: LIDOCAINE 1% INJ 10MG/ML (20 ML MDV) SQ ONE (09:04)
[2021-04-10] MEDS: fentaNYL (PF) 50 MCG/ML 2 ML AMP IV ONE ×2 (09:05→09:52)
[2021-04-10] MEDS: MIDAZOLAM 2 MG/2 ML VIAL IV ONE ×2 (09:05→09:22)
[2021-04-10] MEDS ORDERED: HEPARIN SODIUM 1,000 UN/ML (10ML VL) IV ONE (09:25)
[2021-04-10] MEDS ORDERED: IOPAMIDOL-250 100ML BTL INTRAARTER ONE (09:55)
[2021-04-10] MEDS ORDERED: CLOPIDOGREL 75 MG TAB PO ONE (09:55)
[2021-04-10] MEDS ORDERED: SODIUM CHLORIDE 0.9% 1,000 ML in EMPTY BAG 1 BAG IV SCH (10:30)
--- NOTE | 2021-04-10 10:44 | IR ---
Fluoroscopy HISTORY: Pain in leg 14.2 minutes fluoroscopy time supplied to the referring clinician. 172 intraoperative C-arm images d ocument the procedure. See dictated report from cardiology.
[2021-04-10] MEDS ORDERED: ATROPINE SULFATE 0.1 MG/ML 10ML SYRINGE ONE (12:44)
[2021-04-10 16:46] LABS: Glucose,Whole Blood 93 mg/dL (75-99)
[2021-04-10] MEDS: hydrALAZINE HCL 25 MG TAB PO SCH ×2 (18:20→19:59)
--- NOTE | 2021-04-10 19:32 | AN ---
ANGIOGRAPHY REPORT DATE OF SERVICE: 04/10/2021 PERFORMING PHYSICIAN: Tolu Rondon MD. PROCEDURE PERFORMED: 1. Successful stenting of the right and left common iliac arteries using 9.0 x 29 mm balloon expandable stents with an excellent angiographic result and reduction of stenosis from 80% to 0% in a kissing technique. 2. Selective bilateral common iliac arteries angiogram. 3. Selective right common femoral artery angiogram. 4. Ultrasound-guided access of the right common femoral artery. INDICATION: Bilateral lower extremity intermittent claudication in this 81-year-old female patient. Severe bilateral lower extremities intermittent claudication in this 81-year-old female patient who underwent an angiogram which revealed critical disease involving the right and left common iliac arteries. APPROACH: Right common femoral artery and right radial artery. COMPLICATION: None. LEVEL OF SEDATION: Moderate with sedation length of 55 minutes. PROCEDURE DESCRIPTION: After obtaining an informed consent, the patient was brought to the cardiac pathology laboratory aides teacher. The right common femoral artery was cannulated using micropuncture technique under ultrasound guidance, and the micropuncture wire passed easily then I exchanged my micropuncture sheath over a 0.35 wire into a 6-Honduran 23 cm Brite tip sheath. The sheath was advanced all the way over the wire to the right common iliac artery. Please note that before that I did pre-dilate using 5 and 7-Honduran dilator. Subsequently, the right radial artery was cannulated using micropuncture technique and a micropuncture wire passed easily, then I placed a 6-Honduran sheath at the right radial artery. At that point, anticoagulation was initiated using heparin with continuous ACT monitoring throughout the procedure. Subsequently, I did advance a 0.35 artery 5 wire to the aortic arch and the wire was advanced with adjunctive use of pigtail catheter to the descending aorta all the way to the aortic bifurcation. Subsequently, I did exchange my short 11 cm sheath into 116 cm sheath, which was from T [employer] all the way to above the bifurcation. Both iliacs were wired using 0.035 stiff Glidewire. I did predilatation using 8 mm balloon. Subsequently, I deployed 2 stents in the right and left common iliac arteries. Both stents were 9 x 29 mm stents and both were positioned under fluoroscopic guidance and deployed in a kissing technique. The following angiogram showed excellent angiographic results and the procedure was completed without any complication. POSTPROCEDURE MANAGEMENT: 1. Dual anti-platelet therapy. 2. Risk factor modifications. 3. Follow up with the patient. MMODL / IJN: [id number] /
[2021-04-10] MEDS ORDERED: ATORVASTATIN 10 MG TAB PO SCH (21:00)
[2021-04-10] MEDS ORDERED: EZETIMIBE 10 MG TAB PO SCH (21:00)
[2021-04-10 23:13] VITALS: TEMP 97.8
[2021-04-11] MEDS ORDERED: LEVOTHYROXINE 125 MCG TAB PO SCH (06:30)
[2021-04-11] MEDS ORDERED: amLODIPine 10 MG TAB PO SCH (09:00)
[2021-04-11] MEDS ORDERED: CHOLECALCIFEROL 25 MCG (1000 IU) TABLET PO SCH (09:00)
[2021-04-11] MEDS ORDERED: FUROSEMIDE 20 MG TAB PO SCH (09:00)
[2021-04-11] MEDS ORDERED: ASPIRIN 81 MG PO SCH (09:00)
[2021-04-11] MEDS ORDERED: LOKELMA PO SCH (09:00)
[2021-04-11] MEDS ORDERED: atenoloL 50 MG TAB PO SCH (09:00)
[2021-04-11] MEDS: hydrALAZINE HCL 25 MG TAB PO SCH (09:02)
[2021-04-11 09:45] LABS: Basophils % (A) 0 %; Eosinophils # (A) 0.1 k/uL (0-0.7); Eosinophils % (A) 2 %; HCT 36.7 % (34.0-46.0); HGB 11.5 gm/dL (11.4-16.0); Lymphocytes # (A) 0.8 k/uL (1.0-4.8); Lymphocytes % (A) 11 %; MCHC 31.4 g/dL (31.0-37.0); MCV 95.5 fL (80.0-100.0); Monocytes # (A) 0.6 k/uL (0-1.0); Monocytes % (A) 7 %; Neutrophils % (A) 79 %; Platelet Count 191 k/uL (150-450); RBC 3.84 m/uL (3.80-5.40); RDW 14.2 % (11.5-15.5); WBC 7.6 k/uL (3.8-10.6)
[2021-04-11 10:16] VITALS: RESP 16
[2021-04-11 12:09] VITALS: BP 138/68; PULSE 77
--- NOTE | 2021-04-11 19:19 | DS ---
DISCHARGE SUMMARY DATE OF ADMISSION: 04/10/2021 DATE OF DISCHARGE: 04/11/2021 BRIEF HISTORY: This is an 81-year-old female patient who underwent yesterday successful stenting of the right and left common iliac arteries in a kissing technique from right groin and right radial approach. The patient was seen this morning. Both sites are looking good without any hematomas or bruises. The patient is going to be discharged on anti-platelet and anticoagulation and I will follow up with the patient in a week in the office. MMODL / IJN: [id number] /
--- NOTE | 2021-04-15 11:26 | CDI ---
Outpatient Documentation Clarification Form Date: 04/15/21 CS/Road Roller Operator Name: Nova Yoo Phone: If any questions, call Aminah Cooper Winery Worker at Patient Name: Hoa Terry Admit Date: 04/10/21 Discharge Date: 04/11/21 ATTENTION: The [facility] Coding Staff appreciate your assistance in clarifying documentation. Please respond to the clarification below the line at the bottom and electronically sign. The [facility] Coding Staff will review the response and follow-up if needed. Please Note: Queries are made part of the Legal Health Record. If you have any questions, please contact the Winery Worker, Please provide clarification as to the cause of the occlusive PAD. PAD/PVD is considered unspecified. Greatest specificity is required for medical necessity support and payer medical necessity. Is underlyig cause of the occlusive PAD one of the following? Arteriosclerotic disease of the arteries Arteritis Necrotic Due to embolism/thrombosis Other - please specify below Thank you for your kind consideration. MTDD
--- NOTE | 2021-04-23 05:59 | CDI ---
Outpatient Documentation Clarification Form Date: 04/23/21 CS/Assembler Watch Train Name: Nova Yoo Phone: If any questions, call Aminah Cooper Marketing Mgr at Patient Name: Hoa Terry Admit Date: 04/10/21 Discharge Date: 04/11/21 ATTENTION: The [facility] Coding Staff appreciate your assistance in clarifying documentation. Please respond to the clarification below the line at the bottom and electronically sign. The [facility] Coding Staff will review the response and follow-up if needed. Please Note: Queries are made part of the Legal Health Record. If you have any questions, please contact the Marketing Mgr, Please provide clarification as to the cause of the occlusive PAD. PAD/PVD is considered unspecified. Greatest specificity is required for medical necessity support and payer medical necessity requirement. Is underlyig cause of the occlusive PAD one of the following? Arteriosclerotic disease of the arteries Arteritis Necrotic Due to embolism/thrombosis Other - please specify below Thank you for your kind consideration. MTDD
== END 2021-04-11 13:20 | disposition home or self-care (01) ==
LOC: CATHCVL 06:49 → 3SCARD 13:05 → CATHCVL 04-11 13:20
PROVIDERS: ATTEND Internal Medicine Interventional Cardiology
DX: I70.213 Atherosclerosis of native arteries of extremities with intermittent claudication, bilateral legs (principal); I48.0 Paroxysmal atrial fibrillation; E78.5 Hyperlipidemia, unspecified; I10 Essential (primary) hypertension; Z79.01 Long term (current) use of anticoagulants; Z79.82 Long term (current) use of aspirin; Z79.890 Hormone replacement therapy; Z79.899 Other long term (current) drug therapy; Z88.5 Allergy status to narcotic agent; Z88.8 Allergy status to other drugs, medicaments and biological substances; Z91.040 Latex allergy status
CPT/HCPCS: 37221; 37223; 80048 ×2; 85025 ×2; C1894 ×3; C1769 ×5; C1876; C1725; C1887; J2250; J2001; J3010; J1644; Q9966

== ENCOUNTER → 2021-06-06 | Outpatient (CLI) | payer MEDICARE, OTHER ==
--- NOTE | 2021-06-06 13:04 | US ---
EXAMINATION TYPE: US kidneys/renal and bladder DATE OF EXAM: 06/06/2021 COMPARISON: US 04/02/21, CT 09/17/20 CLINICAL HISTORY: 81-year-old female D41.01 RT renal mass. EXAM MEASUREMENTS: Right Kidney: 11.3 x 6.2 x 3.7 cm Left Kidney: 8.4 x 4.5 x 4.3 cm Right Kidney: No hydronephrosis. Certified Nutritionist notes: Upper pole, posterior mass = 5.7 x 5.3 x 4.6 cm ( versus 4.8 cm on 09/17/2020 and 7.9 cm on 01/09/2021) but with an adjacent mass (? connected vs separa te) = 2.6 x 3.1 x 2.2 cm. Appears solid by ultrasound Left Kidney: Atrophic with renal cortical thinning. No hydronephrosis. Bladder: wnl Bilateral Jets seen: right only Normal Post Void Residual: yes Post Void Residual Volume: 0 mL . IMPRESSION: 1. No hydronephrosis. Atrophic left kidney. 2. Posterior upper pole right renal mass measuring 5.7 cm with possible adjacent or contiguous mass m easuring 3.1 cm (versus 4.8 cm on 09/17/2020 and 7.9 cm on 01/09/2021). Given the current appearance, interval growth is difficult to determine. Consider one-month follow-up MRI with the addition of subt raction images (this will provide a 6 month follow-up from the 01/09/2021 exam).
== END | disposition home or self-care (01) ==
LOC: RADUSWWP 09:12
PROVIDERS: ATTEND Internal Medicine Nephrology
DX: N28.89 Other specified disorders of kidney and ureter (principal); N26.1 Atrophy of kidney (terminal)
CPT/HCPCS: 76770

== ENCOUNTER 2021-07-03 05:41 | Day surgery (SDC) | payer MEDICARE, OTHER ==
[2021-07-01 12:09] VITALS: BMI 34.0
[~2021-07-03 05:41] MED LIST changes: +ALPRAZolam 0.25 MG TAB PO PRN; +ALPRAZolam 0.5 MG TAB PO PRN; +ASPIRIN 325 MG TAB PO STA; +ATORVASTATIN 80 MG TAB PO STA; +HEPARIN SODIUM,PORCINE 10,000 UNIT in SODIUM CHLORIDE 0.9% 1,000 ML IRRIGATION PRN; +HEPARIN SODIUM,PORCINE 2,500 UNIT in SODIUM CHLORIDE 0.9% 250 ML IRRIGATION PRN; +NITROGLYCERIN SL TABS 0.4 MG TAB SUBLINGUAL PRN; -SODIUM CHLORIDE 0.9% 1,000 ML in EMPTY BAG 1 BAG IV ONE; +SODIUM CHLORIDE 0.9% 1,000 ML in EMPTY BAG 1 BAG IV SCH
[2021-07-03] MEDS ORDERED: HEPARIN SODIUM,PORCINE 2,500 UNIT in SODIUM CHLORIDE 0.9% 250 ML IRRIGATION PRN (05:54)
[2021-07-03] MEDS ORDERED: HEPARIN SODIUM,PORCINE 10,000 UNIT in SODIUM CHLORIDE 0.9% 1,000 ML IRRIGATION PRN (05:54)
[2021-07-03] MEDS ORDERED: ALPRAZolam 0.25 MG TAB PO PRN (05:54)
[2021-07-03] MEDS ORDERED: ASPIRIN 325 MG TAB PO PRN (05:54)
[2021-07-03] MEDS ORDERED: SODIUM CHLORIDE 0.9% 1,000 ML in EMPTY BAG 1 BAG IV ONE (06:00)
[2021-07-03 06:43] LABS: WBC 7.1 k/uL (3.8-10.6)
[2021-07-03 06:44] LABS: Basophils % (A) 0 %; Eosinophils # (A) 0.6 k/uL (0-0.7); Eosinophils % (A) 8 %; HCT 38.9 % (34.0-46.0); HGB 12.6 gm/dL (11.4-16.0); Lymphocytes # (A) 1.3 k/uL (1.0-4.8); Lymphocytes % (A) 18 %; MCH 30.4 pg (25.0-35.0); MCHC 32.4 g/dL (31.0-37.0); MCV 93.8 fL (80.0-100.0); Mean Platelet Volume 8.2; Monocytes # (A) 0.5 k/uL (0-1.0); Monocytes % (A) 6 %; Neutrophils # (A) 4.6 k/uL (1.3-7.7); Neutrophils % (A) 65 %; Platelet Count 179 k/uL (150-450); RBC 4.15 m/uL (3.80-5.40); RDW 14.8 % (11.5-15.5)
[2021-07-03] MEDS ORDERED: SODIUM CHLORIDE 0.9% 500 ML 500 ML with niCARdipine 6.25 MG, NITROGLYCERIN-D5W PMX 0.05... IV ONE ×8 (07:28→09:43)
[2021-07-03] MEDS: MIDAZOLAM 2 MG/2 ML VIAL IVP ONE ×4 (07:44→09:30)
[2021-07-03] MEDS ORDERED: LIDOCAINE 1% INJ 10MG/ML (20 ML MDV) SQ ONE (07:50)
[2021-07-03] MEDS: fentaNYL (PF) 50 MCG/ML 2 ML AMP IVP ONE ×4 (08:10→11:05)
[2021-07-03] MEDS ORDERED: HYDROmorphone 0.5 MG/0.5 ML SYRINGE IVP ONE ×3 (08:30→10:53)
[2021-07-03] MEDS: HEPARIN SODIUM 1,000 UN/ML (10ML VL) IV ONE ×2 (08:46→10:21)
[2021-07-03] MEDS ORDERED: FLUMAZENIL 0.1 MG/ML 5 ML VIAL IVP ONE (10:10)
[2021-07-03] MEDS ORDERED: DOPamine DRIP 800 MG in DEXTROSE/WATER 1 250ML.BAG IV ONE (10:15)
[2021-07-03] MEDS ORDERED: PROTAMINE SULFATE 10 MG/ML 5 ML VIAL IV ONE (10:16)
[2021-07-03] MEDS ORDERED: SODIUM CHLORIDE 0.9% 1,000 ML IV ONE (10:49)
[2021-07-03] MEDS ORDERED: HEPARIN SODIUM 1,000 UN/ML (10ML VL) IV ONE (11:06)
[2021-07-03] MEDS ORDERED: IOPAMIDOL-250 100ML BTL INTRAARTER ONE (11:24)
[2021-07-03] MEDS ORDERED: CLOPIDOGREL 75 MG TAB PO ONE (11:24)
[2021-07-03] MEDS ORDERED: LOKELMA PO SCH (11:30)
[2021-07-03] MEDS ORDERED: SODIUM CHLORIDE 0.9% 1,000 ML in EMPTY BAG 1 BAG IV SCH (11:30)
--- NOTE | 2021-07-03 12:23 | IR ---
EXAMINATION TYPE: IR stent intravas non coronary DATE OF EXAM: 07/03/2021 COMPARISON: NONE HISTORY: Fluoroscopy time. Fluoroscopy was provided to the referring clinician.
[2021-07-03] MEDS: hydrALAZINE HCL 25 MG TAB PO SCH ×2 (18:42→22:06)
[2021-07-03] MEDS ORDERED: ATORVASTATIN 10 MG TAB PO SCH (21:00)
[2021-07-03] MEDS ORDERED: EZETIMIBE 10 MG TAB PO SCH (21:00)
--- NOTE | 2021-07-03 21:18 | AN ---
ANGIOGRAPHY REPORT DATE OF SERVICE: July 03, 2021. PERFORMING PHYSICIAN: Tolu Rondon MD. PROCEDURE PERFORMED: 1. Successful stenting of the left external iliac artery using 8.0 x 120 mm self expandable stent and that was EverFlex stent with an excellent angiographic results. 2. Successful stenting of the left common femoral artery using 7.0 x 140 mm Zilver PTX drug-coated stent. 3. Successful stenting of the left SFA using a 7.0 x 140 mm Zilver PTX drug-coated stent with an excellent angiographic results. 4. Intravascular ultrasound (IVUS) of the left external iliac artery and left common femoral artery and left SFA. 5. Atherectomy of the left SFA and left common femoral artery using the Hawk device. 6. Selective angiogram of the left external iliac artery and left common femoral artery and left SFA and left popliteal. 7. Selective angiogram of the left anterior tibial artery. 8. Ultrasound-guided access of the left anterior tibial artery. INDICATION: This is a pleasant 81-year-old female patient with bilateral lower extremities intermittent claudication and she underwent an angiogram which revealed severe bilateral aortoiliac disease and femoral-popliteal disease. She underwent kissing stents of the right and left iliac arteries, but she continues to be symptomatic, mainly in the left leg. APPROACH: Left anterior tibial artery. COMPLICATION: None. LEVEL OF SEDATION: Moderate with sedation length of 3 hours and 41 minutes and that is an extremely complex case by the way. PROCEDURE DESCRIPTION: After obtaining an informed consent, the patient was brought to the cardiac catholic priest. The left anterior tibial artery was cannulated using micropuncture technique under ultrasound guidance, the micropuncture wire passed easily. Then I placed some 6/5 mm slender sheath in the left anterior tibial artery. Continuous infusion of cocktail includes heparin and verapamil and nicardipine was initiated very at the side-arm of the sheath. Initially I crossed the DATA CENTER MANAGER of the left SFA as well as the proximal left common femoral artery. I did an intravascular ultrasound and that revealed tight lesion involving the left external iliac artery. After that, I did an angiogram of the left iliac as well as left femoral and left SFA. I initially placed a stent in the left external iliac artery and that was Evercross stent and that was an 8 x 120 mm. The stent was dilated using 7 mm balloon. Atherectomy of the left femoral artery and left SFA was performed using the HawkOne device with extraction of significant amount of plaque. The following angiogram showed inadequate angiographic results. I decided to stent the left common femoral artery and left SFA. I placed another 7 x 140 stent. There was some overlap between the 2 stents. I post dilated the stent using 6 mm balloon. The following angiogram showed good angiographic results. Please note that in the middle of the case, we loss the wire from the left femoral and left iliac artery and we had to rewire again and that was extremely complex as well. The procedure was completed without any complication. POSTPROCEDURE MANAGEMENT: 1. Dual anti-platelet therapy. 2. Aggressive cholesterol control. 3. Risk factor modifications. 4. Follow up with the patient. MMODL / IJN: [id number] /
[2021-07-04] MEDS ORDERED: ACETAMINOPHEN TAB 325 MG TAB PO PRN (03:49)
[2021-07-04] MEDS ORDERED: LEVOTHYROXINE 100 MCG TAB PO SCH (06:30)
[2021-07-04 06:41] LABS: Basophils % (A) 0 %; Eosinophils # (A) 0.1 k/uL (0-0.7); Eosinophils % (A) 1 %; HCT 29.7 % (34.0-46.0); Lymphocytes # (A) 0.5 k/uL (1.0-4.8); Lymphocytes % (A) 6 %; MCH 31.1 pg (25.0-35.0); MCHC 33.2 g/dL (31.0-37.0); MCV 93.7 fL (80.0-100.0); Mean Platelet Volume 8.3; Monocytes # (A) 0.5 k/uL (0-1.0); Monocytes % (A) 6 %; Neutrophils # (A) 7.5 k/uL (1.3-7.7); Neutrophils % (A) 86 %; Platelet Count 152 k/uL (150-450); RBC 3.17 m/uL (3.80-5.40); RDW 15.2 % (11.5-15.5); WBC 8.8 k/uL (3.8-10.6)
[2021-07-04 07:15] LABS: Calcium 8.6 mg/dL (8.4-10.2); Potassium 4.8 mmol/L (3.5-5.1)
[2021-07-04 07:24] LABS: HGB 9.9 gm/dL (11.4-16.0)
[2021-07-04] MEDS: hydrALAZINE HCL 25 MG TAB PO SCH (08:29)
[2021-07-04 08:32] VITALS: BP 137/72; PULSE 71; RESP 16; TEMP 98.8
[2021-07-04] MEDS ORDERED: atenoloL 50 MG TAB PO SCH (09:00)
[2021-07-04] MEDS ORDERED: FUROSEMIDE 20 MG TAB PO SCH (09:00)
[2021-07-04] MEDS ORDERED: ASPIRIN 81 MG PO SCH (09:00)
[2021-07-04] MEDS ORDERED: amLODIPine 10 MG TAB PO SCH (09:00)
[2021-07-04] MEDS ORDERED: CHOLECALCIFEROL 25 MCG (1000 IU) TABLET PO SCH (09:00)
--- NOTE | 2021-07-04 16:17 | DS ---
DISCHARGE SUMMARY DATE OF ADMISSION: 07/03/2021 DATE OF DISCHARGE: 07/04/2021 BRIEF HISTORY: This is an 81-year-old female patient who underwent yesterday a very complex revascularization of the left iliac and left femoral and left SFA percutaneously from a pedal approach. The procedure ended with an excellent angiographic result and without any complication. Left pedal access appeared to be soft and nontender and without any bruises. The patient is going to be discharged home on anticoagulation and antiplatelet as well as statin, and I will follow up with her in a week. MMSANJEEV / ISAKN: [id number] /
--- NOTE | 2021-07-08 12:26 | CDI ---
Outpatient Documentation Clarification Form Date: 07/08/21 CDS/Car Pre Cooler Name: Nova Yoo Phone: If any question, call Aminah Cooper Vocational Technical Education Teacher at Patient Name: Hoa Terry Patient Account: [id number] Admit Date: 07/03/21 Discharge Date: 07/04/21 ATTENTION: The [facility] Coding Staff appreciate your assistance in clarifying documentation. Please respond to the clarification below the line at the bottom and electronically sign. The [facility] Coding Staff will review the response and follow-up if needed. Please Note: Queries are made par of the Legal Health Record. If you have any questions, please contact the Vocational Technical Education Teacher. Dear Nela Morton, Please provide clarification as to the clause of the occlusive PAD. PAD/PVD is considered unspecified. Greatest specificity is required for medical necessity support. Is the underlying cause of the Occlusive PAD one of the following? Arteriosclerotic disease of the arteries Arteritis Necrotic Due to embolism/thrombosis Other - please specify below Thank you for your Kind Consideration,=. MTDD
--- NOTE | 2021-07-22 09:30 | CDI ---
Outpatient Documentation Clarification Form Date: 07/22/21 CDS/Java Lead Engineer Name: Nova Yoo Phone: If any question, call Aminah Cooper Superintendent Police at Patient Name: Hoa Terry Patient Account: [id number] Admit Date: 07/03/21 Discharge Date: 07/04/21 ATTENTION: The [facility] Coding Staff appreciate your assistance in clarifying documentation. Please respond to the clarification below the line at the bottom and electronically sign. The [facility] Coding Staff will review the response and follow-up if needed. Please Note: Queries are made par of the Legal Health Record. If you have any questions, please contact the Superintendent Police. Dear Nela Morton, Please provide clarification as to the clause of the occlusive PAD. PAD/PVD is considered unspecified. Greatest specificity is required for medical necessity support. Is the underlying cause of the Occlusive PAD one of the following? Arteriosclerotic disease of the arteries Arteritis Necrotic Due to embolism/thrombosis Other - please specify below Thank you for your Kind Consideration, MTDD
== END 2021-07-04 11:19 | disposition home or self-care (01) ==
LOC: CATHCVL 05:41 → 3SCARD 11:17 → CATHCVL 07-04 11:19
PROVIDERS: ATTEND Internal Medicine Interventional Cardiology
DX: I70.212 Atherosclerosis of native arteries of extremities with intermittent claudication, left leg (principal); Z95.820 Peripheral vascular angioplasty status with implants and grafts; I48.0 Paroxysmal atrial fibrillation; I12.9 Hypertensive chronic kidney disease with stage 1 through stage 4 chronic kidney disease, or unspecified chronic kidney disease; E78.5 Hyperlipidemia, unspecified; N18.9 Chronic kidney disease, unspecified; Z20.822 Contact with and (suspected) exposure to COVID-19; Z79.01 Long term (current) use of anticoagulants; Z79.82 Long term (current) use of aspirin; Z79.890 Hormone replacement therapy; Z79.899 Other long term (current) drug therapy; Z88.5 Allergy status to narcotic agent; Z88.6 Allergy status to analgesic agent; Z91.040 Latex allergy status
CPT/HCPCS: 37221; 37223; 37227; 37252; 37253; 80048; 85025 ×2; 87635; C1894 ×2; C1769 ×7; C1725 ×4; C1887; C1714; C1753; C1876; C1874; J2250; J2720; J2001; J3010; J1644 ×2; J1170; Q9966; J1265

== ENCOUNTER → 2021-12-09 | Outpatient (CLI) | payer MEDICARE, OTHER ==
--- NOTE | 2021-12-10 12:58 | ECHOF ---
Referral Reason:I50.42 MEASUREMENTS -------- HEIGHT: 154.9 cm WEIGHT: 83.9 kg BP: RVIDd: 3.0 cm (< 3.3) IVSd: 1.7 cm (0.6 - 1.1) LVIDd: 3.2 cm (3.9 - 5.3) LVPWd: 1.6 cm (0.6 - 1.1) IVSs: 2.2 cm LVIDs: 1.8 cm LVPWs: 2.2 cm Ao Diam: 3.2 cm (2.0 - 3.7) AV Cusp: 2.1 cm (1.5 - 2.6) LA Diam: 3.9 cm (2.7 - 3.8) MV EXCURSION: 17.514 mm (> 18.000) MV EF SLOPE: 80 mm/s (70 - 150) EPSS: 0.8 cm MV E Andres: 1.06 m/s MV DecT: 236 ms MV A Andres: 0.50 m/s MV E/A Ratio: 2.11 RAP: 5.00 mmHg RVSP: 15.91 mmHg FINDINGS -------- This was a technically adequate study. The left ventricular size is normal. There is moderate concentric left ventricular hypertrophy. O verall left ventricular systolic function is normal with, an EF between 55 - 60 %. The right ventricle is normal in size. The left atrial size is normal. The right atrial size is normal. The aortic valve is trileaflet and appears structurally normal. The mitral valve is normal. Mild mitral regurgitation is present. The tricuspid valve appears structurally normal. Trace tricuspid regurgitation present. Right sharron tricular systolic pressure is normal at < 35 mmHg. There is no pulmonic regurgitation present. The aortic root size is normal. Normal inferior vena cava with normal inspiratory collapse consistent with estimated right atrial pre ssure of 5 mmHg. There is a trivial pericardial effusion present. CONCLUSIONS -------- 1. The left ventricular size is normal. 2. There is moderate concentric left ventricular hypertrophy. 3. Overall left ventricular systolic function is normal with, an EF between 55 - 60 %. 4. Mild mitral regurgitation is present. 5. Trace tricuspid regurgitation present. 6. There is a trivial pericardial effusion present. CABLE PLACER: Aliza Tipton RDCS
== END | disposition home or self-care (01) ==
LOC: RADECHMAIN 12:52
PROVIDERS: ATTEND Internal Medicine
DX: I08.1 Rheumatic disorders of both mitral and tricuspid valves (principal); I31.3 Pericardial effusion (noninflammatory)
CPT/HCPCS: 93306

== ENCOUNTER → 2022-01-07 | Outpatient (CLI) | payer MEDICARE, OTHER | LOC: CPPFTMAIN 10:21 | PROVIDERS: ATTEND Internal Medicine | DX: J44.9 Chronic obstructive pulmonary disease, unspecified (principal); F17.200 Nicotine dependence, unspecified, uncomplicated; Z91.048 Other nonmedicinal substance allergy status; Z91.040 Latex allergy status; Z88.4 Allergy status to anesthetic agent; Z88.5 Allergy status to narcotic agent; Z88.6 Allergy status to analgesic agent | CPT/HCPCS: 94060; 94726; 94729 ==

== ENCOUNTER → 2023-02-23 | Outpatient (CLI) | payer MEDICARE, OTHER ==
--- NOTE | 2023-02-23 14:50 | US ---
EXAMINATION TYPE: US kidneys/renal and bladder DATE OF EXAM: 02/23/2023 COMPARISON: Renal ultrasound 06/06/2021, 04/02/2021, MR kidney 01/09/2021 CLINICAL INDICATION: Female, 83 years old with history of N28.1 CYST OF KIDNEY, ACQUIRED; Patient sta keily she has a renal lesion. EXAM MEASUREMENTS: Right Kidney: 9.9 x 4.5 x 4.6 cm Left Kidney: 7.2 x 3.5 x 3.9 cm Right Kidney: Previous lesions not well seen, both upper pole. 1= 2.9 x 2.3 x 2.2 cm and 2= 2.7 x 2. 2 x 1.8 cm Left Kidney: Limited visualization, echogenic and appears small in size Bladder: Not visualized, obscured by bowel, nondistended Bilateral Jets not seen Urinary bladder is not well-visualized due to overlying bowel gas and underdistention. The left kidne y appears is echogenic in appearance with small size. There is cortical thinning identified. No hydro nephrosis or shadowing calculi identified. The previously seen 2 lesions within the upper pole the ri ght kidney are poorly visualized due to overlying bowel gas. The first measures up to 2.9 cm and the second measures up to 2.7 cm. First one is smaller in size and may represent a resolving hematoma. No internal color flow identified. No hydronephrosis or shadowing calculi involving the right kidney. IMPRESSION: 1. No hydronephrosis or nephrolithiasis. 2. Known right renal upper pole masses are poorly visualized due to overlying bowel gas. Further eval uation with MRI abdomen (renal mass protocol) is recommended for more definitive evaluation. 3. Findings suggesting chronic medical disease involving the left kidney.
== END | disposition home or self-care (01) ==
LOC: RADUSWWP 14:03
PROVIDERS: ATTEND Urology
DX: N28.1 Cyst of kidney, acquired (principal); N28.89 Other specified disorders of kidney and ureter
CPT/HCPCS: 76770

== ENCOUNTER → 2024-02-08 | Outpatient (CLI) | payer MEDICARE, OTHER ==
--- NOTE | 2024-02-08 13:05 | US ---
EXAMINATION TYPE: US kidneys/renal and bladder DATE OF EXAM: 02/08/2024 COMPARISON: 02/23/2023, CT 09/17/2020 CLINICAL INDICATION: Female, 84 years old with history of N28.1 RENAL CYST; follow up EXAM MEASUREMENTS: Right Kidney: 9.6 x 4.3 x 4.6 cm Left Kidney: 8.2 x 4.5 x 3.7 cm Right Kidney: limited evaluation due to overlying bowel gas, vague, possible lesion upper pole as on prior exams = 4.1 x 3.1 x 4.4cm Left Kidney: echogenic, thin renal cortex Bladder: not fully distended Bilateral Jets seen: no IMPRESSION: 1. Poor visualization of the upper pole right kidney. Underlying mass however may remain present. Rec ommend CT for additional evaluation.
== END | disposition home or self-care (01) ==
LOC: RADUSWWP 12:16
PROVIDERS: ATTEND Urology
DX: N28.1 Cyst of kidney, acquired (principal)
CPT/HCPCS: 76770

== ENCOUNTER 2024-05-22 11:03 | Inpatient (IN) | payer MEDICARE, OTHER ==
--- NOTE | 2024-05-22 12:08 | ED ---
SOB HPI - General Chief Complaint: Shortness of Breath Stated Complaint: cough,throat pain Time Seen by Provider: 05/22/24 12:05 Source: patient, RN notes reviewed Mode of arrival: wheelchair Limitations: no limitations - History of Present Illness Initial Comments: 84-year-old female with history of COPD, A-fib, and hypertension presented with cough x 2 weeks. Patient reports she and her son both had "a cold" 2 weeks ago with nasal congestion and dry cough. Reports symptoms improved for about 1 day, then cough worsened and became more productive. Patient is also experiencing some shortness of breath with exertion. Denies chest pain, swelling. Denies history of CHF. Patient takes Eliquis for A-fib. - Related Data Home Medications Medication Instructions Recorded Confirmed Atenolol 50 mg PO DAILY 08/28/14 07/03/21 Estradiol 0.5 mg PO Q48H 08/28/14 07/03/21 Ezetimibe [Zetia] 10 mg PO HS 09/17/20 07/03/21 Simvastatin [Zocor] 20 mg PO HS 09/17/20 07/03/21 Aspirin EC [Ecotrin Low Dose] 81 mg PO DAILY 09/28/20 07/03/21 Cholecalciferol [Vitamin D3 (25 1,000 unit PO DAILY 09/28/20 07/03/21 Mcg = 1000 Iu)] Furosemide [Lasix] 20 mg PO DAILY 02/28/21 07/03/21 Levothyroxine Sodium [Synthroid] 100 mcg PO DAILY 02/28/21 07/03/21 Lokelma 1 packet PO Q2D 02/28/21 07/03/21 calcitrioL 0.25 mcg PO TUFR 02/28/21 07/03/21 Apixaban [Eliquis] 2.5 mg PO BID 03/04/21 07/03/21 Previous Rx's Medication Instructions Recorded amLODIPine [Norvasc] 10 mg PO DAILY #30 tab 09/20/20 hydrALAZINE HCL [Apresoline] 25 mg PO TID #90 tab 09/20/20 Allergies Allergy/AdvReac Type Severity Reaction Status Date / Time adhesive tape Allergy Rash/Hives/ Verified 05/22/24 11:08 itching latex Allergy Rash/Hives Verified 05/22/24 11:08 naproxen Allergy Rash/Hives Verified 05/22/24 11:08 Anesthetics - Amide Type - AdvReac blood Verified 05/22/24 11:08 Select A pressure [Anesthetics - Amide Type] dropped morphine AdvReac decreased Verified 05/22/24 11:08 heart rate naproxen sodium [From Aleve] AdvReac Rash/Hives Verified 05/22/24 11:08 Review of Systems ROS Statement: Those systems with pertinent positive or pertinent negative responses have been documented in the HPI. ROS Other: All systems not noted in ROS Statement are negative. Past Medical History Past Medical History: COPD, Hypertension Additional Past Medical History / Comment(s): current stiff neck and can't lay flat-had steroid injection totay at PCP, poor circulation delfino lower legs-muscles ache and numbness, DVT 25 yrs ago, SOB, "skin breaks out easily", admit to [facility] 09/2020 with high potassium History of Any Multi-Drug Resistant Organisms: None Reported Past Surgical History: Bowel Resection, Breast Surgery, Cholecystectomy, Ear Surgery, Hysterectomy, Joint Replacement, Tonsillectomy Additional Past Surgical History / Comment(s): bilateral knee replacement, thyroidectomy, left mastoidectomy, rt breast biopsy, bowel resection(not sure why), delfino eye surgery(not sure what) Past Anesthesia/Blood Transfusion Reactions: Previous Problems w/ Anesthesia Additional Past Anesthesia/Blood Transfusion Reaction / Comment(s): states during anesthesia had low blood pressure post procedure after knee surgery Past Psychological History: No Psychological Hx Reported Smoking Status: Never smoker - Past Family History Brother(s) Family Medical History: Cancer General Exam Limitations: no limitations General appearance: alert, in no apparent distress Head exam: Present: atraumatic, normocephalic, normal inspection Eye exam: Present: normal appearance, PERRL, EOMI. Absent: scleral icterus, conjunctival injection, periorbital swelling ENT exam: Present: normal exam, mucous membranes moist Neck exam: Present: normal inspection. Absent: tenderness, meningismus, lymphadenopathy Respiratory exam: Present: normal lung sounds bilaterally. Absent: respiratory distress, wheezes, rales, rhonchi, stridor Cardiovascular Exam: Present: regular rate, normal rhythm, normal heart sounds. Absent: systolic murmur, diastolic murmur, rubs, gallop, clicks Extremities exam: Present: normal inspection, full ROM, normal capillary refill. Absent: tenderness, pedal edema, joint swelling, calf tenderness Neurological exam: Present: alert, oriented X3 Psychiatric exam: Present: normal affect, normal mood Skin exam: Present: warm, dry, intact, normal color. Absent: rash Course Vital Signs 05/22/24 05/22/24 05/22/24 11:06 11:15 11:23 Temperature 97.9 F Pulse Rate 91 80 Respiratory 18 20 22 Rate Blood Pressure 172/73 100/75 O2 Sat by Pulse 92 L 95 Oximetry Medical Decision Making - Medical Decision Making Was pt. sent in by a medical professional or institution (, PA, [employer], urgent care, hospital, or [facility]...) When possible be specific @ -No Did you speak to anyone other than the patient for history (EMS, parent, family, police, friend...)? What history was obtained from this source @ -Patient's son supplemented history Did you review nursing and triage notes (agree or disagree)? Why? @ -I reviewed and agree with nursing and triage notes Were old charts reviewed (outside hosp., previous admission, EMS record, old EKG, old radiological studies, urgent care reports/EKG's, [facility] records)? Report findings @ -No old charts were reviewed Differential Diagnosis (chest pain, altered mental status, abdominal pain women, abdominal pain men, vaginal bleeding, weakness, fever, dyspnea, syncope, heada daniel, dizziness, GI bleed, back pain, seizure, CVA, palpatations, mental health, musculoskeletal)? @ -Differential Dyspnea: Coronary syndrome, arrhythmia, tamponade, asthma, COPD, pulmonary embolism, pneumonia, pneumothorax, pulmonary effusion, anaphylaxis, diabetic ketoacidosis, flailed chest, pulmonary contusion, diaphragmatic rupture, anemia, neuromuscular, this is not meant to be an all-inclusive list. EKG interpreted by me (3pts min.). @ -As above X-rays interpreted by me (1pt min.). @ -Chest x-ray revealed volume overload CT interpreted by me (1pt min.). @ -None done U/S interpreted by me (1pt. min.). @ -None done What testing was considered but not performed or refused? (CT, X-rays, U/S, labs)? Why? @ -None What meds were considered but not given or refused? Why? @ -None Did you discuss the management of the patient with other professionals (professionals i.e. , PA, [employer], lab, RT, psych nurse, web content & social media manager, sample washer, teacher, executive officer, employment evaluator/case manager)? Give summary @ -I spoke with sound physicians who accepts admission at this time for shortness of breath rule out CHF exacerbation Was smoking cessation discussed for >3mins.? @ -No Was critical care preformed (if so, how long)? @ -No Were there social determinants of health that impacted care today? How? (Homelessness, low income, unemployed, alcoholism, drug addiction, transportation, low edu. Level, literacy, decrease access to med. care, [place] [facility], rehab)? @ -No Was there de-escalation of care discussed even if they declined (Discuss DNR or withdrawal of care, Hospice)? DNR status @ -No What co-morbidities impacted this encounter? (DM, HTN, Smoking, COPD, CAD, Cancer, CVA, ARF, Chemo, Hep., AIDS, mental health diagnosis, sleep apnea, morbid obesity)? @ -None Was patient admitted / discharged? Hospital course, mention meds given and route, prescriptions, significant lab abnormalities, going to OR and other pe rtinent info. @ -Patient was admitted. Patient was seen and evaluated for cough x 2 weeks with associated shortness of breath. Denies chest pain. Vital signs remarkable for 92% saturation on room air. Patient was placed on 2 L of oxygen which improved oxygen to 95%. Other vital signs within normal limits. No acute distress upon examination or signs of labored breathing. COVID, influenza, RSV negative. Chest x-ray revealed volume overload. Due to chest x-ray findings, lab work taken at this time to rule out CHF exacerbation. CBC, CMP, BNP taken. White blood cell count is 12. BNP is 8590. Discussed findings with patient. There is concern for heart failure at this time due to fluid overload on chest x-ray and elevated BNP. I spoke with sound physicians who accepts admission at this time for shortness of breath rule out CHF exacerbation. Patient was started on Lasix. Echocardiogram was ordered. Cardiology was consulted. Patient is agreeable to plan. Case was discussed with my ED attending Dr. Garibay. Undiagnosed new problem with uncertain prognosis? @ -No Drug Therapy requiring intensive monitoring for toxicity (Heparin, Nitro, Insulin, Cardizem)? @ -No Were any procedures done? @ -No Diagnosis/symptom? @ -Shortness of breath, rule out CHF exacerbation Acute, or Chronic, or Acute on Chronic? @ -Acute Uncomplicated (without systemic symptoms) or Complicated (systemic symptoms)? @ -Complicated Side effects of treatment? @ -No Exacerbation, Progression, or Severe Exacerbation? @ -No Poses a threat to life or bodily function? How? (Chest pain, USA, ID, pneumonia, PE, COPD, DKA, ARF, appy, cholecystitis, CVA, Diverticulitis, Homicidal, Suicidal, threat to staff... and all critical care pts) @ -Possibly - Lab Data Result diagrams: 05/22/24 13:09 05/22/24 13:09 Lab Results 05/22/24 05/22/24 05/22/24 Range/Units 12:06 13:09 13:09 WBC 12.0 H (3.8-10.6) k/uL RBC 3.88 (3.80-5.40) m/uL Hgb 12.8 (11.4-16.0) gm/dL Hct 39.4 (34.0-46.0) % MCV 101.7 H (80.0-100.0) fL MCH 33.0 (25.0-35.0) pg MCHC 32.4 (31.0-37.0) g/dL RDW 14.5 (11.5-15.5) % Plt Count 217 (150-450) k/uL MPV 8.8 Neutrophils % 88 % Lymphocytes % 6 % Monocytes % 4 % Eosinophils % 2 % Basophils % 0 % Neutrophils # 10.5 H (1.3-7.7) k/uL Lymphocytes # 0.7 L (1.0-4.8) k/uL Monocytes # 0.5 (0-1.0) k/uL Eosinophils # 0.2 (0-0.7) k/uL Basophils # 0.0 (0-0.2) k/uL Macrocytosis Slight Sodium 137 (137-145) mmol/L Potassium 4.1 (3.5-5.1) mmol/L Chloride 105 (98-107) mmol/L Carbon Dioxide 24 (22-30) mmol/L Anion Gap 8 mmol/L BUN 61 H (7-17) mg/dL Creatinine 2.37 H (0.52-1.04) mg/dL Est GFR (CKD-EPI)AfAm 21 (>60 ml/min/1.73 sqM) Est GFR (CKD-EPI)NonAf 18 (>60 ml/min/1.73 sqM) Glucose 103 H (74-99) mg/dL Calcium 9.6 (8.4-10.2) mg/dL Total Bilirubin 0.7 (0.2-1.3) mg/dL AST 23 (14-36) U/L ALT 13 (4-34) U/L Alkaline Phosphatase 49 (38-126) U/L NT-Pro-B Natriuret Pep 8590 pg/mL Total Protein 7.1 (6.3-8.2) g/dL Albumin 3.7 (3.5-5.0) g/dL Influenza Type A (PCR) Not Detected (Not Detectd) Influenza Type B (PCR) Not Detected (Not Detectd) RSV (PCR) Not Detected (Not Detectd) SARS-CoV-2 (PCR) Not Detected (Not Detectd) - EKG Data -: EKG Interpreted by Al EKG Comments: EKG reveals atrial fibrillation with no ST changes. Ventricular rate 82 bpm, WI interval not calculated. QRS duration 99, QT/QTc 383/422 Disposition Clinical Impression: Shortness of breath Disposition: ADMITTED IP TO THIS HOSP Referrals: Haresh Hardy DO [Primary Care Provider] - 1-2 days Time of Disposition: 15:28
--- NOTE | 2024-05-22 12:34 | XR ---
EXAMINATION TYPE: XR chest 2V DATE OF EXAM: 05/22/2024 COMPARISON: 09/10/2012 INDICATION: Cough TECHNIQUE: Frontal and lateral views of the chest are obtained. FINDINGS: The heart size is normal. The pulmonary vasculature is somewhat prominent. Mild increased lung markings are in the mid to lower lung thibodeaux. Correlate for volume overload. Foll ow-up can be performed. IMPRESSION: 1. Clinical consideration for volume overload.
[2024-05-22 13:29] LABS: Basophils % (A) 0 %; Eosinophils # (A) 0.2 k/uL (0-0.7); Eosinophils % (A) 2 %; HCT 39.4 % (34.0-46.0); HGB 12.8 gm/dL (11.4-16.0); Lymphocytes # (A) 0.7 k/uL (1.0-4.8); Lymphocytes % (A) 6 %; MCHC 32.4 g/dL (31.0-37.0); MCV 101.7 fL (80.0-100.0); Macrocytosis Slight; Mean Platelet Volume 8.8; Monocytes # (A) 0.5 k/uL (0-1.0); Monocytes % (A) 4 %; Neutrophils # (A) 10.5 k/uL (1.3-7.7); Neutrophils % (A) 88 %; Platelet Count 217 k/uL (150-450); RBC 3.88 m/uL (3.80-5.40); RDW 14.5 % (11.5-15.5)
[2024-05-22 13:47] LABS: ALT 13 U/L (4-34); AST 23 U/L (14-36); African American GFR (CKD) 21 (>60 ml/min/1.73 sqM); Albumin 3.7 g/dL (3.5-5.0); Alkaline Phosphatase 49 U/L (38-126); Anion Gap 8 mmol/L; Blood Urea Nitrogen 61 mg/dL (7-17); Calcium 9.6 mg/dL (8.4-10.2); Carbon Dioxide 24 mmol/L (22-30); Chloride 105 mmol/L (98-107); Glucose 103 mg/dL (74-99); Non-African American GFR(CKD) 18 (>60 ml/min/1.73 sqM); Potassium 4.1 mmol/L (3.5-5.1); Sodium 137 mmol/L (137-145); Total Bilirubin 0.7 mg/dL (0.2-1.3); Total Protein 7.1 g/dL (6.3-8.2)
[2024-05-22 13:52] LABS: NT-Pro-B-Type Natriuretic Pept 8590 pg/mL
[2024-05-22] MEDS ORDERED: NALOXONE 0.4 MG/ML 1 ML VIAL IV PRN (15:20)
[2024-05-22] MEDS: FUROSEMIDE 10 MG/ML 4 ML VIAL IV STA (15:56)
--- NOTE | 2024-05-22 16:13 | P.HPIM ---
History of Present Illness H&P Date: 05/22/24 84 year old F with PMH of AFib on Eliquis, PAD with stenting, COPD with 50 pack year history, HTN, CKD following Dr. Kahn, renal mass following Urology, Hypothyroidism, Hyperkalemia presents to the ED. Her son and daughter are at bedside providing some of the history. Son reports the family (including the patient) recently got sick with a viral infection. She initially seemed to improved but over the weekend started to develop a wet cough and progressive worsening SOB. She also reports a frontal headache and sinus congestion. She noted her O2 sat to be 88% at home. This prompted her to come to the ED. In the ED she underwent extensive evaluation. T 97.9F, HR 91, RR 18, BP 172/73, 92% on RA. CBC, CMP significant for WBC 12, MCV 101.7, BUN 61, Cr 2.37, glu 103. BNP 8590. COVID, RSV, Flu negative. EKG showed A-Fib. CXR showed increased lung markings consistent with volume overload. Patient is admitted for evaluation of CHF. General: non toxic, no distress, appears at stated age Derm: warm, dry Head: atraumatic, normocephalic, symmetric Eyes: EOMI, no lid lag, anicteric sclera Mouth: no lip lesion, mucus membranes moist Cardiovascular: S1 S2 irregular. No murmurs, rubs or gallops. Trace pedal edema Lungs: Decreased BS bilaterally, no accessory muscle use Ext: No muscle atrophy Neuro: no focal neuro deficits Psych: Alert, oriented, appropriate affect Based on my assessment of this patient, this patient meets a high complexity level of care. Diastolic CHF exacerbation: Echo 11/2021 EF 55-60% moderate LVH. Start Lasix 20 mg IV BID. Monitor renal function and electrolytes. Strict intake and outtake. Daily weight. Echo ordered. Cardiology consult. Viral URI: Obtain pro-arielle to rule out bacterial PNA. Mucinex 1200 mg PO BID. Sputum Cx ordered. Sinusitis: Flonase nasal spray. Leukocytosis: Unknown significance. Monitor fever profile. Hold antibiotics for now. ABIOLA on CKD: Monitor while on Lasix. Avoid nephrotoxins. AFib: Atenolol 50 mg PO QD. Eliquis 2.5 mg PO BID. PAD with stenting: ASA 81 mg PO QD. Simvastatin 20 mg PO QHS. COPD not in acute exacerbation: DuoNeb QID PRN SOB/wheezing. HTN: Atenolol as above. Amlodipine 10 mg PO QD. Hydralazine 25 mg PO TID. Renal mass: Follows Urology outpatient for surveilance. Hypothyroidism: Synthroid 100 mcg PO QD. Hyperkalemia: Lokelma PO Q2H. CODE STATUS: FULL CODE DVT Prophylaxis: Eliquis. GI Prophylaxis: Designated medical POA if patient is not able to make medical decisions for themselves: Son + Daughter I have reviewed the following store consultant notes: ED note. I have reviewed the results of the following tests: As above. I have ordered the following tests: As above. I have discussed the care of this patient with the following independent historian: I have independently interpreted the following test below: EKG. I have discussed the management of this patient with the following physician: ER provider. Past Medical History Past Medical History: COPD, Hypertension Additional Past Medical History / Comment(s): current stiff neck and can't lay flat-had steroid injection totay at PCP, poor circulation delfino lower legs-muscles ache and numbness, DVT 25 yrs ago, SOB, "skin breaks out easily", admit to [facility] 09/2020 with high potassium History of Any Multi-Drug Resistant Organisms: None Reported Past Surgical History: Bowel Resection, Breast Surgery, Cholecystectomy, Ear Surgery, Hysterectomy, Joint Replacement, Tonsillectomy Additional Past Surgical History / Comment(s): bilateral knee replacement, thyroidectomy, left mastoidectomy, rt breast biopsy, bowel resection(not sure why), delfino eye surgery(not sure what) Past Anesthesia/Blood Transfusion Reactions: Previous Problems w/ Anesthesia Additional Past Anesthesia/Blood Transfusion Reaction / Comment(s): states during anesthesia had low blood pressure post procedure after knee surgery Past Psychological History: No Psychological Hx Reported Smoking Status: Never smoker - Past Family History Brother(s) Family Medical History: Cancer Medications and Allergies Home Medications Medication Instructions Recorded Confirmed Type Atenolol 50 mg PO DAILY 08/28/14 07/03/21 History Estradiol 0.5 mg PO Q48H 08/28/14 07/03/21 History Ezetimibe [Zetia] 10 mg PO HS 09/17/20 07/03/21 History Simvastatin [Zocor] 20 mg PO HS 09/17/20 07/03/21 History amLODIPine [Norvasc] 10 mg PO DAILY #30 tab 09/20/20 07/03/21 Rx hydrALAZINE HCL [Apresoline] 25 mg PO TID #90 tab 09/20/20 07/03/21 Rx Aspirin EC [Ecotrin Low Dose] 81 mg PO DAILY 09/28/20 07/03/21 History Cholecalciferol [Vitamin D3 (25 1,000 unit PO DAILY 09/28/20 07/03/21 History Mcg = 1000 Iu)] Furosemide [Lasix] 20 mg PO DAILY 02/28/21 07/03/21 History Levothyroxine Sodium [Synthroid] 100 mcg PO DAILY 02/28/21 07/03/21 History Lokelma 1 packet PO Q2D 02/28/21 07/03/21 History calcitrioL 0.25 mcg PO TUFR 02/28/21 07/03/21 History Apixaban [Eliquis] 2.5 mg PO BID 03/04/21 07/03/21 History Allergies Allergy/AdvReac Type Severity Reaction Status Date / Time adhesive tape Allergy Rash/Hives/ Verified 05/22/24 11:08 itching latex Allergy Rash/Hives Verified 05/22/24 11:08 naproxen Allergy Rash/Hives Verified 05/22/24 11:08 Anesthetics - Amide Type - AdvReac blood Verified 05/22/24 11:08 Select A pressure [Anesthetics - Amide Type] dropped morphine AdvReac decreased Verified 05/22/24 11:08 heart rate naproxen sodium [From Aleve] AdvReac Rash/Hives Verified 05/22/24 11:08 Physical Exam Vitals: Vital Signs Temp Pulse Resp BP Pulse Ox 05/22/24 11:23 80 22 100/75 95 05/22/24 11:15 20 05/22/24 11:06 97.9 F 91 18 172/73 92 L Intake and Output 05/22/24 05/22/24 05/22/24 06:59 14:59 22:59 Other: Weight 90.718 kg Results CBC & Chem 7: 05/22/24 13:09 05/22/24 13:09 Labs: Abnormal Lab Results - Last 24 Hours (Table) 05/22/24 05/22/24 Range/Units 13:09 13:09 WBC 12.0 H (3.8-10.6) k/uL MCV 101.7 H (80.0-100.0) fL Neutrophils # 10.5 H (1.3-7.7) k/uL Lymphocytes # 0.7 L (1.0-4.8) k/uL BUN 61 H (7-17) mg/dL Creatinine 2.37 H (0.52-1.04) mg/dL Glucose 103 H (74-99) mg/dL
[2024-05-22] MEDS: IPRATROPIUM-ALBUTEROL 3 ML NEB INHALATION PRN (16:33)
[2024-05-22] MEDS: SODIUM ZIRCONIUM CYCLOSILICATE 10 GM PACKET PO SCH (17:38)
[2024-05-22] MEDS: EZETIMIBE 10 MG TAB PO SCH (20:05)
[2024-05-22] MEDS: APIXABAN 2.5 MG TABLET PO SCH (20:05)
[2024-05-22] MEDS: guaiFENesin 600 MG TABLET.ER PO SCH (20:05)
[2024-05-22] MEDS: ATORVASTATIN 10 MG TAB PO SCH (20:05)
[2024-05-22] MEDS: hydrALAZINE HCL 25 MG TAB PO SCH (21:34)
[2024-05-23 07:40] LABS: African American GFR (CKD) 21 (>60 ml/min/1.73 sqM); Anion Gap 7 mmol/L; Blood Urea Nitrogen 62 mg/dL (7-17); Calcium 9.3 mg/dL (8.4-10.2); Carbon Dioxide 24 mmol/L (22-30); Chloride 105 mmol/L (98-107); Glucose 104 mg/dL (74-99); Non-African American GFR(CKD) 18 (>60 ml/min/1.73 sqM); Potassium 3.9 mmol/L (3.5-5.1); Sodium 136 mmol/L (137-145)
[2024-05-23] MEDS: CHOLECALCIFEROL 25 MCG (1000 IU) TABLET PO SCH (08:33)
[2024-05-23] MEDS: atenoloL 50 MG TAB PO SCH (08:33)
[2024-05-23] MEDS: ASPIRIN 81 MG PO SCH (08:33)
[2024-05-23] MEDS: LEVOTHYROXINE 100 MCG TAB PO SCH (08:33)
[2024-05-23] MEDS: amLODIPine 10 MG TAB PO SCH (08:33)
[2024-05-23] MEDS: FUROSEMIDE 10 MG/ML 2 ML VIAL IV SCH (08:34)
[2024-05-23 09:06] LABS: HCT 40.5 % (34.0-46.0); HGB 12.5 gm/dL (11.4-16.0); Hypochromasia Marked; MCH 32.3 pg (25.0-35.0); MCHC 30.9 g/dL (31.0-37.0); MCV 104.5 fL (80.0-100.0); Macrocytosis Slight; Mean Platelet Volume 8.6; Platelet Count 223 k/uL (150-450); RBC 3.88 m/uL (3.80-5.40); RDW 13.9 % (11.5-15.5); WBC 10.1 k/uL (3.8-10.6)
[2024-05-23] MEDS: FLUTICASONE NASAL 50MCG/SPRAY 16GM BTL EA NOSTRIL SCH (09:15)
--- NOTE | 2024-05-23 14:23 | P.CRDCN ---
History of Present Illness Consult date: 05/23/24 Consult reason: congestive heart failure, shortness of breath Chief complaint: Shortness of breath History of present illness: History of present illness: Patient is a pleasant 84-year-old female with significant past medical history of A-fib on Eliquis, PAD with prior stenting, COPD, former smoker, hypertension, CKD, renal mass, hypothyroidism, and hyperkalemia who presents with complaints of worsening shortness of breath. She does follow with Dr. Oshea in the office. She states she had a bad cold 2 weeks ago however 4 days ago she began feeling more short of breath, congestion, and cough that was getting worse. She denies any fevers, reports chills. She did have recent sick contact with her son being ill with a cold as well. She does have occasional lower extremity swelling. She denies any chest pain or pressure. No dizziness or syncope. She did have a prior echocardiogram 11/2021 with a EF 55-60%, moderate LVH. Labs reviewed: Troponin negative x 3, BNP 8590, creatinine 2.37, WBC 12. EKG does show atrial fibrillation. Checks x-ray shows increased lung markings consistent with volume overload. REVIEW OF SYSTEMS: No fever. No diaphoresis. Patient denies headache, dizziness, blurred vision, double vision. Patient denies any stomach discomfort. No nausea, vomiting. No hematochezia. No hematemesis. Denies any black stools or blood in his stools. Denies dysuria or hematuria. No muscle weakness or numbness. No chest pain or pressure. Reports shortness of breath, chills, cough. PHYSICAL EXAMINATION: This is a 84-year-old female in no apparent distress at the time of my examination. HEENT: Head is atraumatic, normocephalic. Pupils are equal, round. Sclerae anicteric. Conjunctivae are clear. Mucous membranes of the mouth are moist. Neck is supple. There is no jugular venous distention. No carotid bruit is heard. CHEST EXAMINATION: Lungs with rhonchi. No chest wall tenderness is noted on palpation or with deep breathing. HEART EXAMINATION: Heart irregular rate and rhythm. S1, S2 heard. No murmurs, gallops or rub. ABDOMEN: Soft, nontender. Bowel sounds are heard. EXTREMITIES: 2+ peripheral pulses with trace peripheral edema and no calf tenderness noted. NEUROLOGIC EXAMINATION: Patient is awake, alert and oriented x3. IMPRESSION AND PLAN: A-fib, persistent PAD status post prior stenting COPD Hypertension CKD Renal mass Hypothyroidism Recent upper respiratory infection Dyspnea PLAN: Symptoms likely related to upper respiratory infection however concern for possible acute on chronic heart failure. Continue with diuretics. Monitor kidney function. Will check echocardiogram to evaluate heart function and structure. Recommend monitoring overnight. Further recommendations pending clinical course. I am dictating on behalf of Dr. Cali Wright's history/physical and assessment/plan. Past Medical History Past Medical History: COPD, Hypertension Additional Past Medical History / Comment(s): current stiff neck and can't lay flat-had steroid injection totay at PCP, poor circulation delfino lower legs-muscles ache and numbness, DVT 25 yrs ago, SOB, "skin breaks out easily", admit to [facility] 09/2020 with high potassium History of Any Multi-Drug Resistant Organisms: None Reported Past Surgical History: Bowel Resection, Breast Surgery, Cholecystectomy, Ear Surgery, Hysterectomy, Joint Replacement, Tonsillectomy Additional Past Surgical History / Comment(s): bilateral knee replacement, thyroidectomy, left mastoidectomy, rt breast biopsy, bowel resection(not sure why), delfino eye surgery(not sure what) Past Anesthesia/Blood Transfusion Reactions: Previous Problems w/ Anesthesia Additional Past Anesthesia/Blood Transfusion Reaction / Comment(s): states during anesthesia had low blood pressure post procedure after knee surgery Past Psychological History: No Psychological Hx Reported Smoking Status: Never smoker - Past Family History Brother(s) Family Medical History: Cancer Medications and Allergies Home Medications Medication Instructions Recorded Confirmed Type Atenolol 50 mg PO DAILY 08/28/14 05/22/24 History Ezetimibe [Zetia] 10 mg PO DAILY 09/17/20 05/22/24 History Simvastatin [Zocor] 20 mg PO HS 09/17/20 05/22/24 History Furosemide [Lasix] 20 mg PO DAILY 02/28/21 05/22/24 History calcitrioL 0.25 mcg PO MOTUWETHFR 02/28/21 05/22/24 History Apixaban [Eliquis] 2.5 mg PO BID 03/04/21 05/22/24 History Dapagliflozin Propanediol [Farxiga] 5 mg PO DAILY 05/22/24 05/22/24 History Levothyroxine Sodium [Synthroid] 50 mcg PO ANN 05/22/24 05/22/24 History Levothyroxine Sodium [Synthroid] 100 mcg PO DAILY 05/22/24 05/22/24 History Lokelma 5gm 5 gm PO Q2D 05/22/24 05/22/24 History Tiotropium [place] [Spiriva 1 cap INHALATION RT-DAILY 05/22/24 05/22/24 History Handihaler] allopurinoL 100 mg PO DAILY 05/22/24 05/22/24 History amLODIPine [Norvasc] 5 mg PO DAILY 05/22/24 05/22/24 History calcitrioL 0.5 mcg PO SUSA 05/22/24 05/22/24 History hydrALAZINE HCL [Apresoline] 50 mg PO TID 05/22/24 05/22/24 History Allergies Allergy/AdvReac Type Severity Reaction Status Date / Time adhesive tape Allergy Rash/Hives/ Verified 05/22/24 16:22 itching latex Allergy Rash/Hives Verified 05/22/24 16:22 naproxen Allergy Rash/Hives Verified 05/22/24 16:22 Anesthetics - Amide Type - AdvReac blood Verified 05/22/24 16:22 Select A pressure [Anesthetics - Amide Type] dropped morphine AdvReac decreased Verified 05/22/24 16:22 heart rate naproxen sodium [From Aleve] AdvReac Rash/Hives Verified 05/22/24 16:22 Physical Exam Vitals: Vital Signs Temp Pulse Resp BP Pulse Ox 05/23/24 12:00 98.2 F 92 18 118/65 05/23/24 11:18 131/78 95 05/23/24 11:14 74 16 150/68 05/23/24 09:17 97.9 F 76 16 137/64 96 05/23/24 08:00 70 16 135/80 94 L 05/23/24 07:35 84 18 138/86 91 L 05/23/24 06:10 98.3 F 70 18 134/71 95 05/23/24 02:09 98.3 F 71 18 134/71 95 05/22/24 21:30 98.1 F 74 19 125/57 95 05/22/24 19:45 98.3 F 76 18 108/84 95 05/22/24 18:22 99 18 116/68 95 05/22/24 17:14 94 18 115/68 96 05/22/24 16:46 75 05/22/24 16:33 67 05/22/24 15:07 86 18 120/73 96 Intake and Output 05/22/24 05/23/24 05/23/24 22:59 06:59 14:59 Intake Total 360 Balance 360 Intake: Oral 360 Results 05/23/24 08:17 05/23/24 06:17 Cardiac Enzymes 05/22/24 05/22/24 05/22/24 Range/Units 16:58 18:03 20:56 Troponin I <0.012 <0.012 <0.012 (0.000-0.034) ng/mL CBC 05/23/24 Range/Units 08:17 WBC 10.1 (3.8-10.6) k/uL RBC 3.88 (3.80-5.40) m/uL Hgb 12.5 (11.4-16.0) gm/dL Hct 40.5 (34.0-46.0) % Plt Count 223 (150-450) k/uL Comprehensive Metabolic Panel 05/23/24 Range/Units 06:17 Sodium 136 L (137-145) mmol/L Potassium 3.9 (3.5-5.1) mmol/L Chloride 105 (98-107) mmol/L Carbon Dioxide 24 (22-30) mmol/L BUN 62 H (7-17) mg/dL Creatinine 2.38 H (0.52-1.04) mg/dL Glucose 104 H (74-99) mg/dL Calcium 9.3 (8.4-10.2) mg/dL Current Medications Generic Name Dose Route Start Last Admin Trade Name Freq PRN Reason Stop Dose Admin Acetaminophen 650 mg 05/22/24 15:20 Acetaminophen Tab 325 Mg Tab PO Q6HR PRN Mild Pain or Fever > 100.5 Albuterol/Ipratropium 3 ml 05/22/24 16:07 05/22/24 16:33 Ipratropium-Albuterol 3 Ml Neb INHALATION 3 ml RT-QID PRN Administration Shortness Of Breath Or Wheezing Amlodipine Besylate 10 mg 05/23/24 09:00 05/23/24 08:33 Amlodipine 10 Mg Tab PO 10 mg DAILY KENDY Administration Apixaban 2.5 mg 05/22/24 21:00 05/23/24 08:33 Apixaban 2.5 Mg Tablet PO 2.5 mg BID KENDY Administration Protocol Aspirin 81 mg 05/23/24 09:00 05/23/24 08:33 Aspirin 81 Mg PO 81 mg DAILY KENDY Administration Atenolol 50 mg 05/23/24 09:00 05/23/24 08:33 Atenolol 50 Mg Tab PO 50 mg DAILY KENDY Administration Atorvastatin Calcium 10 mg 05/22/24 21:00 05/22/24 20:05 Atorvastatin 10 Mg Tab PO 10 mg HS KENDY Administration Calcitriol 0.25 mcg 05/24/24 16:03 Calcitriol 0.25 Mcg Cap PO TUFR KENDY Cholecalciferol 25 mcg 05/23/24 09:00 05/23/24 08:33 Cholecalciferol 25 Mcg (1000 Iu) Tablet PO 25 mcg DAILY KENDY Administration Ezetimibe 10 mg 05/22/24 21:00 05/22/24 20:05 Ezetimibe 10 Mg Tab PO 10 mg HS KENDY Administration Fluticasone Propionate 2 spray 05/23/24 09:00 05/23/24 09:15 Fluticasone Nasal 50mcg/[place] 16gm Btl EA NOSTRIL 2 spray DAILY KENDY Administration Furosemide 20 mg 05/23/24 09:00 05/23/24 08:34 Furosemide 10 Mg/Ml 2 Ml Vial IV 20 mg BID KENDY Administration Guaifenesin 1,200 mg 05/22/24 21:00 05/23/24 08:33 Guaifenesin 600 Mg Tablet.Er PO 1,200 mg Q12HR KENDY Administration Hydralazine HCl 25 mg 05/22/24 22:00 05/23/24 08:33 Hydralazine Hcl 25 Mg Tab PO 25 mg TID KENDY Administration Levothyroxine Sodium 100 mcg 05/23/24 09:00 05/23/24 08:33 Levothyroxine 100 Mcg Tab PO 100 mcg DAILY KENDY Administration Naloxone HCl 0.2 mg 05/22/24 15:20 Naloxone 0.4 Mg/Ml 1 Ml Vial IV Q2M PRN Opioid Reversal Sodium Zirconium Cyclosilicate 10 gm 05/22/24 16:00 05/22/24 17:38 Sodium Zirconium Cyclosilicate 10 Gm Packet PO Not Given Q2D KENDY Intake and Output 09/10/1405/23/24 05/23/24 22:59 06:59 14:59 Intake Total 360 Balance 360 Intake: Oral 360 05/23/24 08:17 05/23/24 06:17
[2024-05-23 15:03] VITALS: RESP 18
--- NOTE | 2024-05-23 15:17 | P.PN ---
Subjective Progress Note Date: 05/23/24 84 year old F with PMH of AFib on Eliquis, PAD with stenting, COPD with 50 pack year history, HTN, CKD following Dr. Kahn, renal mass following Urology, Hypothyroidism, Hyperkalemia presents to the ED. Her son and daughter are at bedside providing some of the history. Son reports the family (including the patient) recently got sick with a viral infection. She initially seemed to improved but over the weekend started to develop a wet cough and progressive worsening SOB. She also reports a frontal headache and sinus congestion. She noted her O2 sat to be 88% at home. This prompted her to come to the ED. In the ED she underwent extensive evaluation. T 97.9F, HR 91, RR 18, BP 172/73, 92% on RA. CBC, CMP significant for WBC 12, MCV 101.7, BUN 61, Cr 2.37, glu 103. BNP 8590. COVID, RSV, Flu negative. EKG showed A-Fib. CXR showed increased lung markings consistent with volume overload. Patient is admitted for evaluation of CHF. 05/23 Patient was seen and examined. Improved breathing. Low 90s on RA. CBC shows MCV 104.5. BMP shows Na 136, BUN 62, Cr 2.38, glu 104. Sputum Cx many PMN, moderate epithelial cells, many G+ bacilli, rare G+ cocci, rare G- bacilli. Cardiology recommends overnight monitoring and Echocardiogram. Vitals: BP 135/80, HR 70, RR 16, T 98.3F, 94% on RA. General: non toxic, no distress, appears at stated age Derm: warm, dry Head: atraumatic, normocephalic, symmetric Eyes: EOMI, no lid lag, anicteric sclera Mouth: no lip lesion, mucus membranes moist Cardiovascular: good distal perfusion in all 4 extremities. Trace pedal edema Lungs: breathing comfortably, no accessory muscle use Ext: No muscle atrophy Neuro: no focal neuro deficits Psych: Alert, oriented, appropriate affect Based on my assessment of this patient, this patient meets a high complexity level of care. Acute hypoxic respiratory failure secondary to below Diastolic CHF exacerbation: Echo 11/2021 EF 55-60% moderate LVH. Lasix 20 mg IV BID. Monitor renal function and electrolytes. Strict intake and outtake. Daily weight. Echo ordered. Cardiology consult. Viral URI: Obtain pro-arielle to rule out bacterial PNA. Mucinex 1200 mg PO BID. Sputum Cx ordered. Sinusitis: Flonase nasal spray. Leukocytosis: Unknown significance. Monitor fever profile. Hold antibiotics for now. ABIOLA on CKD: Monitor while on Lasix. Avoid nephrotoxins. AFib: Rate controlled. Atenolol 50 mg PO QD. Eliquis 2.5 mg PO BID. PAD with stenting: ASA 81 mg PO QD. Simvastatin 20 mg PO QHS. COPD not in acute exacerbation: DuoNeb QID PRN SOB/wheezing. HTN: Atenolol as above. Amlodipine 10 mg PO QD. Hydralazine 25 mg PO TID. Renal mass: Follows Urology outpatient for surveilance. Hypothyroidism: Synthroid 100 mcg PO QD. Hyperkalemia: Lokelma PO Q2H. CODE STATUS: FULL CODE DVT Prophylaxis: Eliquis. GI Prophylaxis: Designated medical POA if patient is not able to make medical decisions for themselves: Son + Daughter I have reviewed the following senior wind energy consultant notes: Cardio. I have reviewed the results of the following tests: BMP, CBC. I have ordered the following tests: BMP in AM. Procal, Sputum Cx, Echo pending. I have discussed the care of this patient with the following independent historian: Daughter. I have independently interpreted the following test below: I have discussed the management of this patient with the following physician: Objective - Vital Signs Vital signs: Vital Signs Temp 98.3 F 05/23/24 06:10 Pulse 70 05/23/24 08:00 Resp 16 05/23/24 08:00 BP 135/80 05/23/24 08:00 Pulse Ox 94 L 05/23/24 08:00 FiO2 Intake & Output 05/22/24 05/23/24 05/23/24 18:59 06:59 18:59 Intake Total 360 Balance 360 Weight 90.718 kg Intake: Oral 360 - Labs CBC & Chem 7: 05/23/24 08:17 05/23/24 06:17 Labs: Abnormal Lab Results - Last 24 Hours (Table) 05/22/24 05/22/24 05/23/24 Range/Units 13:09 13:09 06:17 WBC 12.0 H (3.8-10.6) k/uL MCV 101.7 H (80.0-100.0) fL Neutrophils # 10.5 H (1.3-7.7) k/uL Lymphocytes # 0.7 L (1.0-4.8) k/uL Sodium 136 L (137-145) mmol/L BUN 61 H 62 H (7-17) mg/dL Creatinine 2.37 H 2.38 H (0.52-1.04) mg/dL Glucose 103 H 104 H (74-99) mg/dL
--- NOTE | 2024-05-24 10:16 | CA ---
Transthoracic Echo Report Name: Hoa Terry Age: 84 Gender: F : 1940 Exam Date: 05/24/2024 08:51 Exam Location: [facility] Ht (in): 61 Wt (lb): 200 Ordering Physician: Sasha Louis Attending/Referring Phys: Category Director Citlaly Torres RDCS Procedure CPT: Indications: shortness of breath, r/o CHF Cardiac Hx: Technical Quality: Fair Contrast 1: Total Dose (mL): Contrast 2: Total Dose (mL): MEASUREMENTS (Male / Female) Normal Values 2D ECHO LV Diastolic Diameter PLAX 4.5 cm 4.2 - 5.9 / 3.9 - 5.3 cm LV Systolic Diameter PLAX 3.6 cm IVS Diastolic Thickness 1.4 cm 0.6 - 1.0 / 0.6 - 0.9 cm LVPW Diastolic Thickness 1.4 cm 0.6 - 1.0 / 0.6 - 0.9 cm LV Relative Wall Thickness 0.6 RV Internal Dim ED PLAX 3.3 cm LA Systolic Diameter LX 3.8 cm 3.0 - 4.0 / 2.7 - 3.8 cm LA Volume 90.4 cm??? 18 - 58 / 22 - 52 cm??? LA Volume Index 44.7 cm???/m??? 16 - 28 cm???/m??? M-MODE Aortic Root Diameter MM 3.4 cm AV Cusp Separation MM 2.3 cm DOPPLER AV Peak Velocity 94.1 cm/s AV Peak Gradient 3.5 mmHg MV Peak Velocity 157.3 cm/s MV Peak Gradient 9.9 mmHg MV Mean Velocity 55.0 cm/s MV Mean Gradient 1.9 mmHg MV Velocity Time Integral 27.2 cm MV Area PHT 5.3 cm??? MV Deceleration Time 147.2 ms TR Peak Velocity 263.4 cm/s TR Peak Gradient 27.7 mmHg Right Ventricular Systolic Press 32.7 mmHg FINDINGS Left Ventricle Left ventricular ejection fraction is estimated at 55-60 %. Left ventricular cavity size normal. Moderately increased septal wall thickness. Moderately increased posterior wall thickness. No obvious regional wall motion abnormalities. Right Ventricle Mild right ventricular dilatation. Right ventricular systolic pressure within normal limits. Right Atrium Right atrium not well visualized. Left Atrium Severely increased left atrial volume. Mildly increased left atrial area. Mitral Valve Mitral valve thickened. Mild mitral annular calcification. Trace to mild mitral regurgitation. Aortic Valve Trileaflet aortic valve. No aortic valve stenosis or regurgitation. Tricuspid Valve Structurally normal tricuspid valve. Mild tricuspid regurgitation. Pulmonic Valve Structurally normal pulmonic valve. No pulmonic regurgitation. Pericardium No pericardial effusion. Aorta Normal size aortic root and proximal ascending aorta. CONCLUSIONS Normal LV size and systolic function. Prominent right ventricle. Mild mitral and tricuspid regurgitation. No significant pulmonary hypertension. No pericardial effusion Previewed by: Dr. Viktor Grimes MD (Electronically Signed) Final Date: 24 May 2024 10:15
--- NOTE | 2024-05-24 12:15 | P.PN ---
Subjective HISTORY OF PRESENT ILLNESS: Patient is a pleasant 84-year-old female with significant past medical history of A-fib on Eliquis, PAD with prior stenting, COPD, former smoker, hypertension, CKD, renal mass, hypothyroidism, and hyperkalemia who presents with complaints of worsening shortness of breath. She does follow with Dr. Oshea in the office. She states she had a bad cold 2 weeks ago however 4 days ago she began feeling more short of breath, congestion, and cough that was getting worse. She denies any fevers, reports chills. She did have recent sick contact with her son being ill with a cold as well. She does have occasional lower extremity swelling. She denies any chest pain or pressure. No dizziness or syncope. She did have a prior echocardiogram 11/2021 with a EF 55-60%, moderate LVH. Labs reviewed: Troponin negative x 3, BNP 8590, creatinine 2.37, WBC 12. EKG does show atrial fibrillation. Checks x-ray shows increased lung markings consistent with volume overload. May 24, 2024 Patient examined this morning at the bedside. Patient currently denies chest pain or pressure. She denies shortness of breath. Vital signs are stable. Telemetry reveals atrial fibrillation with heart rate in the 90s. PHYSICAL EXAM: VITAL SIGNS: Reviewed. GENERAL: Well-developed in no acute distress. NECK: Supple. No JVD or thyromegaly LUNGS: Respirations even and unlabored. Lungs essentially clear to auscultation bilaterally. HEART: Irregular rate and rhythm. S1 and S2 heard. EXTREMITIES: Normal range of motion. No clubbing or cyanosis. Peripheral pulses intact. No lower extremity edema ASSESSMENT: Recent upper respiratory infection Shortness of breath Acute on chronic heart failure with preserved EF, 55 to 60%, repeat echo pending Persistent atrial fibrillation with controlled ventricular rate History of COPD Hypertension Chronic kidney disease Hypothyroidism PLAN: Discontinue IV Lasix. Begin oral Lasix 40 mg daily Continue additional cardiac medications Continue telemetry monitoring Patient to receive incentive spirometer this morning Further recommendations pending patient course Nurse practitioner note has been reviewed by physician. Signing provider agrees with the documented findings, assessment, and plan of care documented by CARPENTER INSPECTOR as a scribe. Objective - Vital Signs Vital signs: Vital Signs Temp 98.7 F 05/24/24 07:51 Pulse 75 05/24/24 11:58 Resp 18 05/24/24 11:58 BP 133/75 05/24/24 11:58 Pulse Ox 93 L 05/24/24 11:58 FiO2 Intake & Output 05/23/24 05/24/24 05/24/24 18:59 06:59 18:59 Intake Total 540 358 Output Total 0 500 Balance 540 0 -142 Weight 90.718 kg 96.1 kg Intake: Oral 540 358 Output: Urine 0 500 Other: Voiding Method Toilet Toilet # Voids 1 - Labs CBC & Chem 7: 05/23/24 08:17 05/23/24 06:17 Labs: Microbiology - Last 24 Hours (Table) 05/22/24 16:49 Gram Stain - Preliminary Sputum Sputum Culture - Preliminary
--- NOTE | 2024-05-24 16:12 | P.DS ---
Providers Date of admission: 05/22/24 15:44 Attending physician: Eryn Santamaria MD Consults: 05/22/24 15:20 Consult Physician Urgent Consulting Provider: [facility] Consult Reason/Comments: Shortness of breath, r/o CHF exacerbation Do you want consulting provider notified?: Yes Primary care physician: Haresh Hardy Hospital Course: Discharge Diagnosis: Acute hypoxic respiratory failure secondary to heart failure and COPD Acute on chronic diastolic heart failure Acute bronchitis Leukocytosis secondary to recent URI CKD stage III Atrial fibrillation Paroxysmal atrial fibrillation COPD Renal mass Hypothyroidism Hyperkalemia Hospital Course: 84 year old F with PMH of AFib on Eliquis, PAD with stenting, COPD with 50 pack year history, HTN, CKD following Dr. Kahn, renal mass following Urology, Hypothyroidism, Hyperkalemia presents to the ED. Her son and daughter are at bedside providing some of the history. Son reports the family (including the patient) recently got sick with a viral infection. She initially seemed to improve but over the weekend started to develop a wet cough and progressive worsening SOB. She also reports a frontal headache and sinus congestion. She noted her O2 sat to be 88% at home. This prompted her to come to the ED. In the ED she underwent extensive evaluation. T 97.9F, HR 91, RR 18, BP 172/73, 92% on RA. CBC, CMP significant for WBC 12, MCV 101.7, BUN 61, Cr 2.37, glu 103. BNP 8590. COVID, RSV, Flu negative. EKG showed A-Fib. CXR showed increased lung markings consistent with volume overload. Patient is admitted for evaluation of CHF. Patient was started on IV Lasix. At the time of discharge patient reported that his symptoms are improving. Cardiology switched the patient to oral Lasix. Patient had an echocardiogram that was unremarkable and showed normal ejection fraction. At the time of discharge patient also complained of greenish sputum. Patient was deemed stable for discharge. She was discharged on prednisone and doxycycline to treat for acute bronchitis. She was also discharged on a higher dose of Lasix which is 40 mg daily. Patient counseled on fluid restriction and salt restriction. Patient instructed to follow-up with cardiology. Patient also did have a home O2 eval prior to discharge. She did qualify for 2 L nasal cannula. Patient has underlying COPD and extensive history of smoking. Patient seen and examined at bedside.[] Vital signs reviewed and stable. General: [non toxic], [no distress], appears chronically debilitated Derm: [warm], [dry] Head: [atraumatic], [normocephalic], [symmetric] Eyes: [EOMI], [no lid lag], [anicteric sclera] Mouth: [no lip lesion], [mucus membranes moist] Cardiovascular: [S1S2 reg], [no murmur], [positive posterior tibial pulse bilateral], Lungs: [CTA bilateral], [no rhonchi, no rales] , [no accessory muscle use] Abdominal: [soft], [ nontender to palpation], [no guarding], [no appreciable organomegaly] Ext: [no gross muscle atrophy], [no edema], [no contractures] Neuro: [ CN II-XI grossly intact], [no focal neuro deficits] Psych: [Alert], [oriented], [appropriate affect] A total of [33] minutes of time were spent preparing this complex discharge summary . Patient Condition at Discharge: Stable Plan - Discharge Summary Discharge Rx Participant: No New Discharge Prescriptions: New Ipratropium-Albuterol Nebulize [Duoneb 0.5 mg-3 mg/3 ml Soln] 3 ml INHALATION RT-QID PRN 30 Days #30 each PRN Reason: Shortness Of Breath Or Wheezing Furosemide [Lasix] 40 mg PO DAILY 30 Days #30 tab predniSONE 50 mg PO DAILY 5 Days #5 tab Doxycycline [Vibramycin] 100 mg PO BID 5 Days #10 cap Aspirin 81 mg PO DAILY 30 Days #30 tab Continue Atenolol 50 mg PO DAILY Simvastatin [Zocor] 20 mg PO HS Ezetimibe [Zetia] 10 mg PO DAILY calcitrioL 0.25 mcg PO MOTUWETHFR amLODIPine [Norvasc] 5 mg PO DAILY Levothyroxine Sodium [Synthroid] 50 mcg PO ANN allopurinoL 100 mg PO DAILY calcitrioL 0.5 mcg PO SUSA Apixaban [Eliquis] 2.5 mg PO BID Tiotropium [place] [Spiriva Handihaler] 1 cap INHALATION RT-DAILY Lokelma 5gm 5 gm PO Q2D Levothyroxine Sodium [Synthroid] 100 mcg PO DAILY hydrALAZINE HCL [Apresoline] 50 mg PO TID Dapagliflozin Propanediol [Farxiga] 5 mg PO DAILY Discontinued Furosemide [Lasix] 20 mg PO DAILY Discharge Medication List Atenolol 50 mg PO DAILY 08/28/14 [History] Ezetimibe [Zetia] 10 mg PO DAILY 09/17/20 [History] Simvastatin [Zocor] 20 mg PO HS 09/17/20 [History] calcitrioL 0.25 mcg PO MOTUWETHFR 02/28/21 [History] Apixaban [Eliquis] 2.5 mg PO BID 03/04/21 [History] Dapagliflozin Propanediol [Farxiga] 5 mg PO DAILY 05/22/24 [History] Levothyroxine Sodium [Synthroid] 50 mcg PO ANN 05/22/24 [History] Levothyroxine Sodium [Synthroid] 100 mcg PO DAILY 05/22/24 [History] Lokelma 5gm 5 gm PO Q2D 05/22/24 [History] Tiotropium [place] [Spiriva Handihaler] 1 cap INHALATION RT-DAILY 05/22/24 [History] allopurinoL 100 mg PO DAILY 05/22/24 [History] amLODIPine [Norvasc] 5 mg PO DAILY 05/22/24 [History] calcitrioL 0.5 mcg PO SUSA 05/22/24 [History] hydrALAZINE HCL [Apresoline] 50 mg PO TID 05/22/24 [History] Aspirin 81 mg PO DAILY 30 Days #30 tab 05/24/24 [Rx] Doxycycline [Vibramycin] 100 mg PO BID 5 Days #10 cap 05/24/24 [Rx] Furosemide [Lasix] 40 mg PO DAILY 30 Days #30 tab 05/24/24 [Rx] Ipratropium-Albuterol Nebulize [Duoneb 0.5 mg-3 mg/3 ml Soln] 3 ml INHALATION RT-QID PRN 30 Days #30 each 05/24/24 [Rx] predniSONE 50 mg PO DAILY 5 Days #5 tab 05/24/24 [Rx] Follow up Appointment(s)/Referral(s): Haresh Hardy DO [Primary Care Provider] - 1-2 days Cali Wright DO [STAFF PHYSICIAN] - 1 Week Activity/Diet/Wound Care/Special Instructions: Home Oxygen/Nebulizer - ordered through [facility] - [phone] Discharge Disposition: HOME SELF-CARE
[2024-05-24] MEDS: predniSONE 50 MG TAB PO SCH (16:30)
[2024-05-24] MEDS: ACETAMINOPHEN TAB 325 MG TAB PO PRN (16:32)
[2024-05-24 17:34] VITALS: BP 110/52; PULSE 74; TEMP 97.8
[2024-05-24] MEDS ORDERED: DOXYCYCLINE 100 MG CAP PO SCH (21:00)
[2024-05-25] MEDS ORDERED: FUROSEMIDE 40 MG TAB PO SCH (09:00)
== END 2024-05-24 17:35 | disposition home or self-care (01) | DRG 291 ==
LOC: EC 11:03 → 3SCARD 15:44
PROVIDERS: ADMIT Internal Medicine; ATTEND Internal Medicine
DX: I13.0 Hypertensive heart and chronic kidney disease with heart failure and stage 1 through stage 4 chronic kidney disease, or unspecified chronic kidney disease (principal); I50.33 Acute on chronic diastolic (congestive) heart failure; J96.01 Acute respiratory failure with hypoxia; J44.0 Chronic obstructive pulmonary disease with (acute) lower respiratory infection; N17.9 Acute kidney failure, unspecified; E89.0 Postprocedural hypothyroidism; E87.5 Hyperkalemia; I48.0 Paroxysmal atrial fibrillation; J20.9 Acute bronchitis, unspecified; M43.6 Torticollis; N18.30 Chronic kidney disease, stage 3 unspecified; N28.89 Other specified disorders of kidney and ureter; Z79.82 Long term (current) use of aspirin; Z79.01 Long term (current) use of anticoagulants; Z79.84 Long term (current) use of oral hypoglycemic drugs; Z79.890 Hormone replacement therapy; Z79.899 Other long term (current) drug therapy; Z87.891 Personal history of nicotine dependence; Z96.653 Presence of artificial knee joint, bilateral; Z79.52 Long term (current) use of systemic steroids; Z88.5 Allergy status to narcotic agent; Z88.6 Allergy status to analgesic agent; Z91.040 Latex allergy status; Z86.718 Personal history of other venous thrombosis and embolism
CPT/HCPCS: 36415; 71046; 80048; 80053; 83880; 84145; 84484; 85025; 85027; 87070; 87205; 87636; 93005; 93306; 94640; 96374; 96375; 99285

== ENCOUNTER 2025-02-08 10:58 | Day surgery (SDC) | payer MEDICARE, OTHER ==
[2025-02-03 15:56] VITALS: BMI 39.6
[~2025-02-08 10:58] MED LIST changes: -ASPIRIN 325 MG TAB PO STA; -ATORVASTATIN 80 MG TAB PO STA; +HEPARIN SODIUM,PORCINE (1 ML) 2,500 UNIT in SODIUM CHLORIDE 0.9% 250 ML IRRIGATION PRN; -HEPARIN SODIUM,PORCINE 2,500 UNIT in SODIUM CHLORIDE 0.9% 250 ML IRRIGATION PRN; -NITROGLYCERIN SL TABS 0.4 MG TAB SUBLINGUAL PRN; -SODIUM CHLORIDE 0.9% 1,000 ML in EMPTY BAG 1 BAG IV SCH; +ZOLPIDEM 5 MG TAB PO PRN
[2025-02-08] MEDS: IV FLUID CONTINUATION 1,000 ML IV ONE (11:25)
[2025-02-08] MEDS: EMPTY BAG 1 BAG with SODIUM CHLORIDE 0.9% 1,000 ML IV SCH (12:01)
[2025-02-08 12:21] LABS: Basophils # (A) 0.03 10*3/uL (0.00-0.10); Basophils % (A) 0.4 %; Eosinophils # (A) 0.54 10*3/uL (0.04-0.35); Eosinophils % (A) 7.7 %; HCT 44.4 % (37.2-46.3); HGB 14.4 g/dL (12.0-15.0); Lymphocytes # (A) 1.16 10*3/uL (0.90-5.00); Lymphocytes % (A) 16.5 %; MCH 32.7 pg (27.0-32.0); MCHC 32.4 g/dL (32.0-37.0); MCV 100.7 fL (80.0-97.0); Monocytes # (A) 0.54 10*3/uL (0.20-1.00); Monocytes % (A) 7.7 %; Neutrophils # (A) 4.72 10*3/uL (1.80-7.70); Neutrophils % (A) 67.4 %; Platelet Count 148 10*3/uL (140-440); RBC 4.41 10*6/uL (4.10-5.20); RDW 14.7 % (11.5-14.5); WBC 7.01 10*3/uL (4.50-10.00)
[2025-02-08 12:36] LABS: African American GFR (CKD) 21 (>60 ml/min/1.73 sqM); Anion Gap 12 mmol/L; Blood Urea Nitrogen 62 mg/dL (7-17); Carbon Dioxide 24 mmol/L (22-30); Chloride 103 mmol/L (98-107); Glucose 90 mg/dL (74-99); Non-African American GFR(CKD) 18 (>60 ml/min/1.73 sqM); Potassium 5.1 mmol/L (3.5-5.1); Sodium 139 mmol/L (137-145)
[2025-02-08] MEDS: fentaNYL (PF) 50 MCG/ML 2 ML AMP IVP ONE (14:07)
[2025-02-08] MEDS: MIDAZOLAM 2 MG/2 ML VIAL IVP ONE (14:07)
[2025-02-08] MEDS: IOPAMIDOL-370 100ML BTL INJ ONE (14:31)
[2025-02-08] MEDS ORDERED: NALOXONE 0.4 MG/ML 1 ML VIAL IVP PRN (14:32)
--- NOTE | 2025-02-08 14:36 | P.PCN ---
Date of Procedure: 02/08/25 Operative Findings: AN ABDOMINAL AORTOGRAM AND BILATERAL LOWER EXTREMITIES RUNOFF PERFORMING PHYSICIAN: Tolu Rondon MD PROCEDURE PERFORMED: 1. An abdominal aortogram 2. Bilateral lower extremities runoff 3. Ultrasound-guided access of the right common femoral artery INDICATION: Symptomatic 85-year-old female patient with abnormal duplex study COMPLICATION: None LEVEL OF SEDATION: Moderate was sedation length of 17 minutes APPROACH: Right common femoral artery PROCEDURE DESCRIPTION: After obtaining informed consent and explaining the procedure benefits, risks, and complications, the patient was brought to the cardiac cath lab nurse. The right groin was prepped and draped in sterile fashion. The right common femoral artery was cannulated using micropuncture technique, under ultrasound guidance. A micropuncture wire was advanced, and the micropuncture sheath was advanced over the wire, then the micropuncture sheath was exchanged over an 0.35 wire into a 5-Bhutanese sheath dilator assembly then the wire and dilator were removed and sheath was flushed. We did an abdominal aortogram and bilateral lower extremities runoff using 5- Bhutanese pigtail catheter using CO2. The catheter was initially placed at the level of the renal arteries, and it was pulled into above the bifurcation of the aorta into right and left common iliac arteries. The procedure was completed and there was no complications. SELECTIVE PERIPHERAL ANGIOGRAM: The abdominal aorta: Was poorly visualized The common iliac arteries: Both iliacs appear to be patent The external iliac arteries: The right external iliac artery appeared to have severe disease and appears to be heavily calcified The internal iliac arteries: Both internal os appears to be patent The common femoral arteries: The right common femoral arteries appear to have mild to moderate disease Superficial femoral arteries: The right SFA is occluded by the ostium Popliteal arteries: Both popliteal appeared to have mild to moderate disease Below the knees: There is posterior tibial artery runoff bilaterally CONCLUSION: 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
[2025-02-08] MEDS: SODIUM CHLORIDE 0.9% 1,000 ML in EMPTY BAG 1 BAG IV SCH (14:40)
--- NOTE | 2025-02-08 14:59 | IR ---
EXAMINATION TYPE: IR angio abdominal w runoff DATE OF EXAM: 02/08/2025 CLINICAL INDICATION: Female, 85 years old with history of BILATERAL LEG PAIN, TECHNIQUE: Fluoroscopy. COMPARISON: None. FINDINGS: Fluoroscopic guidance was provided during abdominal angiogram with lower extremity runoff procedure performed by Dr. Rondon. A total of 2.3 minutes of fluoroscopic time was utilized during the procedure and 331 spot images was acquired. TOTAL DAP = 139 Gycm2. IMPRESSION: As Above. [facility], , 02/08/2025 2:57 PM
[2025-02-08 20:37] VITALS: BP 125/70; PULSE 62; RESP 18; TEMP 97.7
== END 2025-02-08 21:15 | disposition home or self-care (01) ==
LOC: CATHCVL 10:58 → 6NMEDSUR 16:46 → CATHCVL 21:15
PROVIDERS: ATTEND Internal Medicine Interventional Cardiology
DX: I73.9 Peripheral vascular disease, unspecified (principal); I48.20 Chronic atrial fibrillation, unspecified; I38 Endocarditis, valve unspecified; I10 Essential (primary) hypertension; E78.5 Hyperlipidemia, unspecified; Z72.0 Tobacco use; Z91.040 Latex allergy status; Z88.5 Allergy status to narcotic agent; Z79.82 Long term (current) use of aspirin; Z79.890 Hormone replacement therapy; Z79.899 Other long term (current) drug therapy
CPT/HCPCS: 36200; 75625; 75716; 80048; 85025; 99152; C1894 ×2; C1769 ×3; J2250; J3010; Q9967

== ENCOUNTER → 2025-03-27 | Outpatient (CLI) | payer MEDICARE, OTHER ==
--- NOTE | 2025-03-27 12:51 | US ---
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 Right Kidney: Mass-like area noted again as seen on prior. Measures 6.0 x 3.0 x 6.3cm Left Kidney: Unable to visualize Bladder: Anechoic Bilateral Jets seen: No No evidence for obstructive uropathy or renal calculus. IMPRESSION: 1. No evidence for obstructive uropathy. 2. Masslike area within the right kidney performed by rotary engine assembler as seen on multiple exams dating b ack to at least 09/17/2020 CT. If this has not been evaluated with MRI consider MRI evaluation. [facility], , 03/27/2025 12:49 PM
== END | disposition home or self-care (01) ==
LOC: RADUSWWP 11:39
PROVIDERS: ATTEND Urology
DX: N28.89 Other specified disorders of kidney and ureter (principal)
CPT/HCPCS: 76770

== ENCOUNTER 2025-04-19 05:59 | Day surgery (SDC) | payer MEDICARE, OTHER ==
[2025-04-14 14:24] VITALS: BMI 41.5
[2025-04-19] MEDS ORDERED: HEPARIN SODIUM,PORCINE (1 ML) 2,500 UNIT in SODIUM CHLORIDE 0.9% 250 ML IRRIGATION PRN (06:21)
[2025-04-19] MEDS ORDERED: ALPRAZolam 0.25 MG TAB PO PRN (06:21)
[2025-04-19] MEDS ORDERED: ALPRAZolam 0.5 MG TAB PO PRN (06:21)
[2025-04-19] MEDS ORDERED: ZOLPIDEM 5 MG TAB PO PRN (06:21)
[2025-04-19] MEDS: EMPTY BAG 1 BAG with SODIUM CHLORIDE 0.9% 1,000 ML IV SCH (06:53)
[2025-04-19] MEDS: diphenhydrAMINE 50 MG/ML 1 ML VIAL IVP STA (07:03)
[2025-04-19] MEDS: methylPREDNISolone SOD SUCCI 125 MG/2 ML VIAL IV STA (07:13)
[2025-04-19] MEDS: IV FLUID CONTINUATION 1,000 ML IV ONE (07:14)
[2025-04-19] MEDS: fentaNYL (PF) 50 MCG/1 ML VIAL IVP ONE (07:50)
[2025-04-19] MEDS: MIDAZOLAM 2 MG/2 ML VIAL IVP ONE (07:50)
[2025-04-19] MEDS: HEPARIN SODIUM,PORCINE 10,000 UNIT in SODIUM CHLORIDE 0.9% 1,000 ML IRRIGATION PRN (07:59)
[2025-04-19] MEDS: HEPARIN SODIUM 1,000 UN/ML (10ML VL) IVP ONE ×3 (08:04→08:35)
[2025-04-19] MEDS: IOPAMIDOL-370 100ML BTL INJ ONE (08:52)
[2025-04-19] MEDS ORDERED: IPRATROPIUM-ALBUTEROL 3 ML NEB INHALATION PRN (09:05)
[2025-04-19] MEDS ORDERED: NALOXONE 0.4 MG/ML 1 ML VIAL IVP PRN (09:08)
--- NOTE | 2025-04-19 09:16 | P.PCN ---
Date of Procedure: 04/19/25 Operative Findings: PERCUTANEOUS PERIPHERAL INTERVENTION Performing physician Tolu Rondon M.D. Procedure performed 1. Successful stenting of the right common and right external iliac arteries 2. Adjunctive use of IVUS and lithotripsy balloon 3. Selective right iliac and right femoral angiogram 4. Ultrasound-guided access of the right common femoral artery Indication Symptomatic 85-year-old female patient with severe disease involving the right iliac artery Approach Right common femoral artery Complications None Level of sedation Moderate with a sedation time of 53 minutes Procedure description After obtaining informed consent the patient was brought to the cardiac Management Accountant. The right common femoral artery was cannulated using micropuncture technique under ultrasound guidance a micropuncture wire passed easily then I placed a 7 [place] 23 cm sheath at the right common femoral artery under fluoroscopy guidance. At that point anticoagulation was initiated using heparin with continuous ACT monitoring. After that I did place an 014 wire and I pulled all 3 5 wire out. I did IVUS of the right common and right external iliac artery which showed severe disease appeared to be flow-limiting with a diameter of the 8 mm in diameter for the right common iliac artery and 7 mm in diameter for the right external iliac artery. I did stenting of the right common iliac artery using 8 mm x 59 mm iCAST and for the right external iliac artery I did 8 mm x 100 mm [place] PTX. Postdilatation was performed using 7 mm balloon. Final angiogram showed good angiographic results and the procedure was completed with no complication Postprocedure management 1. Dual antiplatelet therapy 2. Aggressive cholesterol control 3. Risk factors modification 4. Follow-up with the patient
--- NOTE | 2025-04-19 09:36 | IR ---
EXAMINATION TYPE: IR stent intravas non coronary DATE OF EXAM: 04/19/2025 9:26 AM COMPARISON: Pre Operative Images if available both CT/MRI or plain film CLINICAL INDICATION: Female, 85 years old with history of RT ILIAC PTBA; TECHNIQUE: IR stent intravas non coronary, multiple fluoroscopic images provided for procedure. DAP: mGym2 Gycm2 uGym2 cGycm2 or equivalent. FINDINGS: Please see operative report. IMPRESSION: 1. No evidence for intraoperative complication. 2. Please see the operative/procedural note for further details. [facility], , 04/19/2025 9:33 AM
[2025-04-19] MEDS: SODIUM CHLORIDE 0.9% 1,000 ML in EMPTY BAG 1 BAG IV SCH (16:54)
[2025-04-19] MEDS: ATORVASTATIN 10 MG TAB PO SCH (20:44)
[2025-04-19] MEDS: EZETIMIBE 10 MG TAB PO SCH (20:44)
[2025-04-20] MEDS: LEVOTHYROXINE 100 MCG TAB PO SCH (06:20)
[2025-04-20] MEDS: TIOTROPIUM 2.5 MCG INHALER INHALATION SCH (08:07)
[2025-04-20 08:15] LABS: African American GFR (CKD) 26 (>60 ml/min/1.73 sqM); Non-African American GFR(CKD) 23 (>60 ml/min/1.73 sqM)
[2025-04-20] MEDS: DAPAGLIFLOZIN PROPANEDIOL 5 MG TABLET PO SCH (08:24)
[2025-04-20] MEDS: FUROSEMIDE 20 MG TAB PO SCH (08:24)
[2025-04-20] MEDS: FERROUS SULFATE 325 MG TAB PO SCH (08:24)
[2025-04-20] MEDS: CYANOCOBALAMIN 500 MCG TAB PO SCH (08:24)
[2025-04-20] MEDS: amLODIPine 5 MG TAB PO SCH (08:24)
[2025-04-20] MEDS: SODIUM ZIRCONIUM CYCLOSILICATE 10 GM PACKET PO SCH (08:25)
[2025-04-20] MEDS: ASPIRIN 81 MG PO SCH (08:25)
[2025-04-20] MEDS: CHOLECALCIFEROL 25 MCG (1000 IU) TABLET PO SCH (08:32)
[2025-04-20] MEDS ORDERED: LEVOTHYROXINE 100 MCG TAB PO SCH (09:00)
--- NOTE | 2025-04-20 09:51 | P.DS ---
Providers Attending physician: Tolu Rondon Primary care physician: Haresh [facility] Course: The patient is a pleasant 85-year-old female patient who underwent yesterday successful balloon angioplasty and stenting of the right iliac with good angiographic results from right groin approach The patient was seen and evaluated this morning. She is asymptomatic and hemodynamically stable. The patient will be discharged home on dual antiplatelet therapy and I will follow-up with the patient next week in the office Plan - Discharge Summary Discharge Rx Participant: No New Discharge Prescriptions: Continue Atenolol 50 mg PO DAILY Simvastatin [Zocor] 20 mg PO HS Ezetimibe [Zetia] 10 mg PO HS calcitrioL 0.25 mcg PO DAILY amLODIPine [Norvasc] 5 mg PO DAILY Levothyroxine Sodium [Synthroid] 50 mcg PO SA allopurinoL 100 mg PO DAILY Ipratropium-Albuterol Nebulize [Duoneb 0.5 mg-3 mg/3 ml Soln] 3 ml INHALATION RT-QID PRN 30 Days #30 each PRN Reason: Shortness Of Breath Or Wheezing Furosemide [Lasix] 20 mg PO DAILY Levothyroxine Sodium [Synthroid] 50 mcg PO ANN Apixaban [Eliquis] 2.5 mg PO BID Tiotropium [place] [Spiriva Handihaler] 1 cap INHALATION QAM Lokelma 5gm 5 gm PO Q2D Levothyroxine Sodium [Synthroid] 100 mcg PO DAILY hydrALAZINE HCL [Apresoline] 25 mg PO TID Dapagliflozin Propanediol [Farxiga] 5 mg PO DAILY Aspirin 81 mg PO DAILY 30 Days #30 tab Cyanocobalamin [Vitamin B-12] 500 mcg PO DAILY Cholecalciferol [Vitamin D3 (25 Mcg = 1000 Iu)] 25 mcg PO DAILY Ferrous Sulfate [Iron] 325 mg PO DAILY Levothyroxine Sodium [Synthroid] 100 mcg PO DAILY Discharge Medication List Atenolol 50 mg PO DAILY 08/28/14 [History] Ezetimibe [Zetia] 10 mg PO HS 09/17/20 [History] Simvastatin [Zocor] 20 mg PO HS 09/17/20 [History] calcitrioL 0.25 mcg PO DAILY 02/28/21 [History] Apixaban [Eliquis] 2.5 mg PO BID 03/04/21 [History] Dapagliflozin Propanediol [Farxiga] 5 mg PO DAILY 05/22/24 [History] Levothyroxine Sodium [Synthroid] 50 mcg PO SA 05/22/24 [History] Levothyroxine Sodium [Synthroid] 100 mcg PO DAILY 05/22/24 [History] Lokelma 5gm 5 gm PO Q2D 05/22/24 [History] Tiotropium [place] [Spiriva Handihaler] 1 cap INHALATION QAM 05/22/24 [History] allopurinoL 100 mg PO DAILY 05/22/24 [History] amLODIPine [Norvasc] 5 mg PO DAILY 05/22/24 [History] hydrALAZINE HCL [Apresoline] 25 mg PO TID 05/22/24 [History] Aspirin 81 mg PO DAILY 30 Days #30 tab 05/24/24 [Rx] Ipratropium-Albuterol Nebulize [Duoneb 0.5 mg-3 mg/3 ml Soln] 3 ml INHALATION RT-QID PRN 30 Days #30 each 05/24/24 [Rx] Cholecalciferol [Vitamin D3 (25 Mcg = 1000 Iu)] 25 mcg PO DAILY 02/03/25 [History] Cyanocobalamin [Vitamin B-12] 500 mcg PO DAILY 02/03/25 [History] Ferrous Sulfate [Iron] 325 mg PO DAILY 02/03/25 [History] Furosemide [Lasix] 20 mg PO DAILY 02/03/25 [History] Levothyroxine Sodium [Synthroid] 50 mcg PO ANN 04/14/25 [History] Levothyroxine Sodium [Synthroid] 100 mcg PO DAILY 04/19/25 [History] Follow up Appointment(s)/Referral(s): Tolu Rondon MD [STAFF PHYSICIAN] - 1 Week (OFFICE WILL CALL WITH FOLLOW UP APPOINTMENT.)
[2025-04-20 10:03] VITALS: BP 124/84; PULSE 66; RESP 18; TEMP 97.7
[2025-04-22] MEDS ORDERED: LEVOTHYROXINE 50 MCG TAB PO SCH (06:30)
[2025-04-23] MEDS ORDERED: LEVOTHYROXINE 50 MCG TAB PO SCH (06:30)
== END 2025-04-20 11:12 | disposition home or self-care (01) ==
LOC: CATHCVL 05:59 → 3SCARD 08:55 → CATHCVL 04-20 11:12
PROVIDERS: ATTEND Internal Medicine Interventional Cardiology
DX: I73.9 Peripheral vascular disease, unspecified (principal); I48.20 Chronic atrial fibrillation, unspecified; I38 Endocarditis, valve unspecified; E78.5 Hyperlipidemia, unspecified; I10 Essential (primary) hypertension; Z72.0 Tobacco use; Z95.5 Presence of coronary angioplasty implant and graft; Z79.01 Long term (current) use of anticoagulants; Z79.02 Long term (current) use of antithrombotics/antiplatelets; Z79.84 Long term (current) use of oral hypoglycemic drugs; Z79.82 Long term (current) use of aspirin; Z79.899 Other long term (current) drug therapy
CPT/HCPCS: 37221; 37252; 99152; 99153; C1769 ×4; C1894 ×2; C1753; C1874; C1725; J2250; J1200; J1644 ×2; Q9967; J3010; J2919; 82565; 94640